=== PATIENT | female | born 1965 | race Caucasian/White ===

== ENCOUNTER 2017-08-24 19:19 | Inpatient (IN) | payer MEDICARE, MEDICAID ==
--- NOTE | 2017-08-24 19:26 | ED Physician Chart ---
ED Chief Complaint/HPI - Patient Information Date Seen:: 08/24/17 Time Seen:: 19:15 Chief Complaint:: Cough History of Present Illness:: onset x 5 days of cough, dyspnea, fever, and congestion; no report of trauma, H/ As, S/T, neck pain, C/P, Abd. Pain, A/N/V/D/c, chills, or urinary s/s Historian:: Patient, EMS Review:: Nurse's Note Reviewed, Old Chart Reviewed, EMS run form Reviewed ED Review of Systems - Review of Systems General/Constitutional: Fever, No chills, No weight loss, No weakness, No diaphoresis, No edema, No loss of appetite Skin: No skin lesions, No rash, No bruising Head: No headache, No light-headedness Eyes: No loss of vision, No pain, No diplopia ENT: No earache, Nasal drainage, No sore throat, No tinnitus Neck: No neck pain, No swelling, No thyromegaly, No stiffness, No mass noted Cardio Vascular: No chest pain, No palpitations, No PND, No orthopnea, No edema Pulmonary: SOB, Cough, No sputum, No wheezing GI: No nausea, No vomiting, No diarrhea, No pain, No melena, No hematochezia, No constipation, No hematemesis G/U: No dysuria, No frequency, No hematuria, No nacturia [employer]: No vaginal discharge, No abnormal vaginal bleed, No contraction Musculoskeletal: No bone or joint pain, No back pain, No muscle pain Endocrine: No polyuria, No polydipsia Psychiatric: No prior psych history, No depression, No anxiety, No suicidal ideation, No homicidal ideation, No auditory hallucination, No visual hallucination Hematopoietic: No bruising, No lymphadenopathy Allergic/Immuno: No urticaria, No angioedema Neurological: No syncope, No focal symptoms, No weakness, No paresthesia, No headache, No seizure, No dizziness, No confusion, No vertigo ED Past Medical History - Past Medical History Obtainable: Yes Past Medical History: HTN, DM, CAD, Dyslipidemia, ESRD, Arthritis Family History: Diabetes Melitus, HTN Social History: Non Smoker, No Alcohol, No Drug Use, Surgical History: Appendectomy, Hysterectomy Psychiatricy History: None Medication: Reviewed ED Physical Exam - Physical Examination General/Constitutional: Awake, Well-developed, well-nourished, Alert, No distress, GCS 15, Non-toxic appearing, Ambulatory Head: Atraumatic Eyes: Lids, conjuctiva normal, PERRL, EOMI Skin: Nl inspection, No rash, No skin lesions, No ecchymosis, Well hydrated, No lymphadenopathy ENMT: External ears, nose nl, TM canals nl, Nasal exam nl, Lips, teeth, gums nl , Oropharynx nl, Tonsils nl Neck: Nontender, Full ROM w/o pain, No JVD, No nuchal rigidity, No bruit, No mass, No stridor Respiratory: Nl effort/Exclusion Other Respiratory comments:: Lungs: + Rales, Rhonchi, Cardio Vascular: RRR, No murmur, gallop, rubs, NL S1 S2, Carotid/Femoral/Distal pulses equal bilaterally GI: No tenderness/rebounding/guarding, No organomegaly, No hernia, Normal BS's, Nondistended, No mass/bruits, No McBurney tenderness : No CVA tenderness Extremities: No tenderness or effusion, Full ROM, normal strength in all extremities, No edema, Normal digits & nails Neuro/Psych: Alert/oriented, DTR's symmetric, Normal sensory exam, Normal motor strength, Judgement/insight normal, Mood normal, Normal gait, No focal deficits Misc: Normal back, No paraspinal tenderness ED Labs/Radiology/EKG Results - Lab Results Comments:: = Anemia; BUN: 46; Cr: 5.5; Na+: 134 - Radiology Results Comments:: CXR: + RML Infiltrate; CM; CHF; Right Pleural Effusion - EKG Interpretations EKG Time:: 20:11 Rate & Rhythm: 98; NSR Comments:: T-Wave Inversions in I and AVL ED Septic Shock - . Is Septic Shock (SBP<90, OR Lactate>4 mmol\L) present?: No ED Reassessment (Disposition) - Reassessment Reassessment Condition:: Improved - Diagnosis Diagnosis:: Dx: Myocardial Ischemia; Anemia; Hyponatremia; ESRD; PNA; CHF; Pleural Effusion ; Sepsis - Aftercare/Follow up Instructions Aftercare/Follow-Up Instructions:: Counseled pt regarding lab results/diagnosis & need follow up, Counseled pt & family regarding lab results/diagnosis & need follow up - Patient Disposition Discharge/Transfer:: Acute Care w/in this hosp Accepting Physician:: Dr. Reyes Time Called:: 2099 Time Responded:: 21:00 Admitted to:: Telemetry Spoke to:: Dr. Reyes Admitting Medical Physician:: Dr. Reyes Condition at Disposition:: Stable, Improved
[2017-08-24 19:53] LABS: % BASOPHILS 0.4 % (0.0-2.0); % EOSINOPHILS 3.4 % (0.0-5.0); % LYMPHOCYTES 20.2 % (20.0-50.0); % MONOCYTES 7.8 % (2.0-10.0); % NEUTROPHILS 68.2 % (40.0-80.0); EOSINOPHILE ABSOLUTE 0.3 Th/cmm (0.1-0.4); HEMATOCRIT 32.1 % (41.0-60); HEMOGLOBIN 10.9 gm/dL (12-16); MEAN CELL VOLUME 94.8 fl (81-100); MEAN CORPUSCULAR HEMOGLOBIN 32.2 pg (27.0-31.0); MEAN CORPUSCULAR HGB CONC 33.9 pg (28.0-36.0); MEAN PLATELET VOLUME 7.6 fl; MONOCYTE ABSOLUTE 0.8 Th/cmm (0.3-1.0); NEUTROPHILE ABSOLUTE 6.6 Th/cmm (1.8-8.0); PLATELET COUNT 226 Th/cmm (150-400); RED BLOOD COUNT 3.38 Mil/cmm (3.80-5.10); WHITE BLOOD COUNT 9.7 Th/cmm (4.8-10.8)
[2017-08-24 20:12] LABS: ALB/GLOB RATIO 0.7 (1.0-1.8); ANION GAP 12.6 (7.0-16.0); BILIRUBIN,TOTAL 0.2 mg/dL (0.3-1.0); CALCIUM SERUM 8.9 mg/dL (8.6-10.3); CARBON DIOXIDE 30.6 mEq/L (21.0-31.0); GFR AFRICAN-AMERICAN 10.4 ml/min (>90); GFR NON AFRICAN-AMERICAN 8.6 ml/min; POTASSIUM SERUM 4.2 mEq/L (3.5-5.1); TOTAL PROTEIN,SERUM 7.1 gm/dL (6.0-8.3)
[2017-08-24 20:13] LABS: TROP I 0.04 ng/mL (0.01-0.05)
[2017-08-24 20:14] LABS: INR 1.01 (0.5-1.4); PROTHROMBIN TIME (TEST) 10.5 SECONDS (9.5-11.5)
[2017-08-24 20:15] LABS: CREATININE - SERUM 5.5 mg/dL (0.6-1.2)
[2017-08-24] MEDS ORDERED: cefTRIAXone 1 GM in Sodium Chloride 0.9% 50 ML IV ONE (20:36)
[2017-08-24] MEDS ORDERED: Azithromycin 500 MG in Sodium Chloride 0.9% 250 ML IV ONE (20:41)
[2017-08-24] MEDS ORDERED: Morphine Sulfate 2 mg/mL 1mL Syr IV STA (22:27)
[2017-08-24] MEDS ORDERED: Morphine Sulfate 2 mg/mL 1mL Syr ONE (22:29)
[2017-08-24] MEDS ORDERED: APAP/Codeine 300 mg/30 mg Tab PO PRN (23:21)
[2017-08-24] MEDS ORDERED: Guaifenesin DM 10 ML UDC PO PRN (23:32)
[2017-08-25] MEDS ORDERED: GLUCAGON HCl 1 MG KIT IM PRN (00:15)
--- NOTE | 2017-08-25 00:44 | History & Physical ---
ADMIT DATE: 08/24/2017 CHIEF COMPLAINT: Shortness of breath and cough. HISTORY OF PRESENT ILLNESS: The patient is a 52-year-old female admitted from the Emergency Room to telemetry floor from [facility] due to short of breath and cough. According to the ER physician, the patient had a chest x-ray evidence of pneumonia; however, no official report is available in the computer right now. The patient does complain short of breath and cough. RT protocol ordered and empiric antibiotics started. I have also ordered sputum culture and blood culture. Antibiotic will be adjusted accordingly. Lab catalan, the patient's sodium 124, BUN is 46, creatinine 5.5, troponin 0.04. Her white count is normal, however. PAST MEDICAL HISTORY: End-stage renal disease, on hemodialysis; diabetes; hypertension; chronic pain syndrome; difficulty walking; COPD; coronary artery disease, status post NC; anxiety; depression. PAST SURGICAL HISTORY: Dialysis access placement. MEDICATIONS: See medication reconciled list. ALLERGIES: No known drug allergy. FAMILY HISTORY: Noncontributory. SOCIAL HISTORY: The patient is . Smoked before, quit years ago. No history of alcohol or IV drug use. REVIEW OF SYSTEMS: As per HPI. PHYSICAL EXAMINATION: GENERAL: Well-developed, thin female, in no acute distress. SKIN: Warm and dry. VITAL SIGNS: Basically stable. HEENT: Normocephalic, atraumatic. Pupils equal, round, and react to light and accommodation. CHEST: Symmetrical. LUNGS: Few wheezing, the patient with rhonchi in the lung base. CARDIAC: Normal sinus rhythm. S1, S2. ABDOMEN: Benign, soft, and nontender. EXTREMITIES: No clubbing, cyanosis or edema. NEUROLOGIC: Unremarkable. IMPRESSION AND PLAN: 1. Shortness of breath, cough: Probably due to pneumonia and empiric antibiotics started, which will be adjusted accordingly. RT protocol was ordered. 2. End-stage renal disease, on hemodialysis. Dialysis will be done tomorrow and Nephrology consultation requested. 3. Hyperkalemia: Kayexalate 30 g by mouth was given. 4. Cough due to pneumonia. I will provide the patient with Robitussin as needed. 5. Chronic pain syndrome: Multifactorial. We will adjust pain medication accordingly. 6. Anxiety. 7. Deep venous thrombosis prophylaxis. JOB# [id number]
[2017-08-25] MEDS ORDERED: Piperacillin Sodium/Tazobact 2.25 gm Vial IV ONE ×2 (01:18→06:43)
[2017-08-25] MEDS: Morphine Sulfate 2 mg/mL 1mL Syr IV PRN (06:24)
[2017-08-25 06:43] LABS: ANION GAP 13.2 (7.0-16.0); CALCIUM SERUM 8.5 mg/dL (8.6-10.3); CARBON DIOXIDE 29.2 mEq/L (21.0-31.0); GFR AFRICAN-AMERICAN 9.8 ml/min (>90); GFR NON AFRICAN-AMERICAN 8.1 ml/min; POTASSIUM SERUM 4.4 mEq/L (3.5-5.1)
[2017-08-25 06:52] LABS: CREATININE - SERUM 5.8 mg/dL (0.6-1.2)
--- NOTE | 2017-08-25 07:52 | Diagnostic Imaging Report ---
CHEST X-RAY: AP view INDICATION: Cough COMPARISON: None FINDINGS: There is elevation of the right hemidiaphragm. Increased interstitial lung markings are noted. There may be small effusions. Cardiomegaly is noted. Increased bibasilar markings are noted. The osseous structures are intact. IMPRESSION: Increased interstitial lung markings. A marginal degree of congestion cannot be excluded. Bibasal atelectasis versus less likely infiltrates. Probable small bilateral effusions. Cardiomegaly.
[2017-08-25] MEDS ORDERED: [UNRECOGNIZED DRUG - REMARK] PO SCH (09:00)
[2017-08-25] MEDS: Ferrous Sulfate 325 MG TAB PO SCH ×3 (09:28→20:21)
[2017-08-25] MEDS: Pantoprazole 40 mg EC Tab PO SCH (09:28)
[2017-08-25 12:06] LABS: URINE MICROSCOPIC INDICATED? YES; URINE SOURCE MIDSTREAM
[2017-08-25 12:10] LABS: URINE BILIRUBIN NEGATIVE (NEGATIVE); URINE BLOOD TRACE (NEGATIVE); URINE GLUCOSE (UA) 500 mg/dL (NEGATIVE); URINE KETONE NEGATIVE (NEGATIVE); URINE LEUKOCYTE ESTERASE NEGATIVE (NEGATIVE); URINE NITRATE NEGATIVE (NEGATIVE); URINE PROTEIN >=300 mg/dL (NEGATIVE); URINE UROBILINOGEN 0.2 E.U./dL (0.2 - 1.0)
[2017-08-25 12:19] LABS: URINE COLOR YELLOW
[2017-08-25 12:20] LABS: URINE CLARITY HAZY (CLEAR)
[2017-08-25 12:29] LABS: URINE RBC 0-2 /hpf (0-5)
[2017-08-25 12:30] LABS: URINE EPITHELIAL CELLS FEW /lpf (FEW)
[2017-08-25 12:31] LABS: URINE BACTERIA 1+ /hpf (NONE SEEN)
--- NOTE | 2017-08-25 13:14 | Diagnostic Imaging Report ---
Bilateral lower extremity Doppler venous ultrasound exam HISTORY: Pain/swelling Sonographic sector images were obtained through the deep venous systems of both legs. Associated Doppler data was obtained. The exam demonstrates patency of the common femoral, superficial femoral, popliteal, and posterior tibial veins bilaterally. Specifically, no thrombus is seen. There are normal compressibility and augmentation responses. IMPRESSION: Negative exam for deep vein thrombophlebitis.
[2017-08-25] MEDS: Morphine Sulfate 2 mg/mL 1mL Syr IVP PRN (13:47)
--- NOTE | 2017-08-25 23:01 | Internal Medicine Prog Note ---
Internal Medicine Subjective - Subjective Service Date: 08/25/17 (pt was seen earlier today, c/o severe pain.) Patient seen and examined:: with staff Patient is:: awake, verbal, interactive, in bed Patient Complaints of:: congestion, sore throat, cough, LBP, headache, SOB Per staff patient has:: no adverse event Internal Medicine Objective - Results Result Diagrams: 08/24/17 19:42 08/25/17 05:20 Recent Labs: Laboratory Last Values WBC 9.7 Th/cmm (4.8-10.8) 08/24/17 19:42 RBC 3.38 Mil/cmm (3.80-5.10) L 08/24/17 19:42 Hgb 10.9 gm/dL (12-16) L 08/24/17 19:42 Hct 32.1 % (41.0-60) L 08/24/17 19:42 MCV 94.8 fl (81-100) 08/24/17 19:42 MCH 32.2 pg (27.0-31.0) H 08/24/17 19:42 MCHC Differential 33.9 pg (28.0-36.0) 08/24/17 19:42 RDW 15.0 % (11.5-20.0) 08/24/17 19:42 Plt Count 226 Th/cmm (150-400) 08/24/17 19:42 MPV 7.6 fl 08/24/17 19:42 Neutrophils % 68.2 % (40.0-80.0) 08/24/17 19:42 Lymphocytes % 20.2 % (20.0-50.0) 08/24/17 19:42 Monocytes % 7.8 % (2.0-10.0) 08/24/17 19:42 Eosinophils % 3.4 % (0.0-5.0) 08/24/17 19:42 Basophils % 0.4 % (0.0-2.0) 08/24/17 19:42 PT 10.5 SECONDS (9.5-11.5) 08/24/17 19:42 INR 1.01 (0.5-1.4) 08/24/17 19:42 PTT (Actin FS) 26.1 SECONDS (26.0-38.0) 08/24/17 19:42 Sodium 136 mEq/L (136-145) 08/25/17 05:20 Potassium 4.4 mEq/L (3.5-5.1) 08/25/17 05:20 Chloride 98 mEq/L (98-107) 08/25/17 05:20 Carbon Dioxide 29.2 mEq/L (21.0-31.0) 08/25/17 05:20 Anion Gap 13.2 (7.0-16.0) 08/25/17 05:20 BUN 50 mg/dL (7-25) H 08/25/17 05:20 Creatinine 5.8 mg/dL (0.6-1.2) H* 08/25/17 05:20 Est GFR ( Amer) 9.8 ml/min (>90) 08/25/17 05:20 Est GFR (Non-Af Amer) 8.1 ml/min 08/25/17 05:20 BUN/Creatinine Ratio 8.6 08/25/17 05:20 Glucose 109 mg/dL (70-105) H 08/25/17 05:20 POC Glucose 148 MG/DL (70 - 105) H 08/25/17 11:43 Whole Bld Lactic Acid 1.23 mmol/L (0.60-1.99) 08/24/17 19:42 Calcium 8.5 mg/dL (8.6-10.3) L 08/25/17 05:20 Total Bilirubin 0.2 mg/dL (0.3-1.0) L 08/24/17 19:42 AST 18 U/L (13-39) 08/24/17 19:42 ALT 15 U/L (7-52) 08/24/17 19:42 Alkaline Phosphatase 113 U/L (34-104) H 08/24/17 19:42 Creatine Kinase 77 U/L (30-223) 08/24/17 19:42 Troponin I 0.04 ng/mL (0.01-0.05) 08/24/17 19:42 B-Natriuretic Peptide 2410.0 pg/mL (5.0-100.0) H 08/25/17 05:20 Total Protein 7.1 gm/dL (6.0-8.3) 08/24/17 19:42 Albumin 3.0 gm/dL (3.7-5.3) L 08/24/17 19:42 Globulin 4.1 gm/dL 08/24/17 19:42 Albumin/Globulin Ratio 0.7 (1.0-1.8) L 08/24/17 19:42 Serum , Qual NEGATIVE (NEGATIVE) 08/24/17 19:42 Urine Source MIDSTREAM 08/25/17 12:04 Urine Color YELLOW 08/25/17 12:04 Urine Clarity HAZY (CLEAR) 08/25/17 12:04 Urine pH 8.0 (4.6 - 8.0) 08/25/17 12:04 Ur Specific [place] 1.020 (1.005-1.030) 08/25/17 12:04 Urine Protein >=300 mg/dL (NEGATIVE) 08/25/17 12:04 Urine Glucose (UA) 500 mg/dL (NEGATIVE) H 08/25/17 12:04 Urine Ketones NEGATIVE mg/dL (NEGATIVE) 08/25/17 12:04 Urine Blood TRACE (NEGATIVE) 08/25/17 12:04 Urine Nitrate NEGATIVE (NEGATIVE) 08/25/17 12:04 Urine Bilirubin NEGATIVE (NEGATIVE) 08/25/17 12:04 Urine Urobilinogen 0.2 E.U./dL (0.2 - 1.0) 08/25/17 12:04 Ur Leukocyte Esterase NEGATIVE (NEGATIVE) 08/25/17 12:04 Urine RBC 0-2 /hpf (0-5) 08/25/17 12:04 Urine WBC 6-10 /hpf (0-5) H 08/25/17 12:04 Ur Epithelial Cells FEW /lpf (FEW) 08/25/17 12:04 Urine Bacteria 1+ /hpf (NONE SEEN) H 08/25/17 12:04 - Physical Exam Vitals and I&O: Vital Signs Temp 97.7 F 08/25/17 20:00 Pulse 90 08/25/17 20:22 Resp 20 08/25/17 20:22 BP 115/60 08/25/17 20:00 Pulse Ox 96 08/25/17 20:22 Intake & Output 08/25/17 08/25/17 08/26/17 06:59 18:59 06:59 Intake Total 650 520 Balance 650 520 Weight (lbs) 97.84 kg 101.605 kg Intake: Intake, IV Amount 650 100 Azithromycin 500 mg In 250 Sodium Chloride 0.9% 250 ml @ 250 mls/hr IV X1 ONE Rx#:[id number] Piperacillin Sodium/ 50 100 Tazobact 2.25 gm In Sodium Chloride 0.9% 50 ml @ 100 mls/hr IV Q8HR [facility] Rx#:[id number] cefTRIAXone 1 gm In 50 Sodium Chloride 0.9% 50 ml @ 100 mls/hr IV X1 ONE Rx#:[id number] Oral 420 Other: # Voids 3 # Bowel Movements 0 Weight Source Bedscale Bedscale Active Medications: Current Medications Acetaminophen (Tylenol) 650 mg PO Q6HR PRN PRN Reason: Fever >101 or Mild Pain Stop: 10/23/17 23:20 Acetaminophen/Codeine Phosphate (Tylenol W/Codeine #3) 1 tab PO Q6H PRN PRN Reason: Pain (Moderate) Stop: 10/23/17 23:20 Amlodipine Besylate (Norvasc) 5 mg PO DAILY [facility] Stop: 10/24/17 08:59 Last Admin: 08/25/17 09:32 Dose: Not Given Bisacodyl (Dulcolax 10 Mg Supp) 10 mg RC DAILY PRN PRN Reason: Constipation Stop: 10/23/17 23:20 Docusate Sodium (Colace) 100 mg PO DAILY [facility] Stop: 10/24/17 08:59 Last Admin: 08/25/17 09:28 Dose: Not Given Ferrous Sulfate (Iron) 325 mg PO TID [facility] Stop: 10/24/17 08:59 Last Admin: 08/25/17 20:21 Dose: 325 mg Furosemide (Lasix) 40 mg PO DAILY [facility] Stop: 10/24/17 08:59 Last Admin: 08/25/17 09:32 Dose: Not Given Glipizide (Glucotrol) 5 mg PO AC [facility] Stop: 10/24/17 07:29 Last Admin: 08/25/17 18:19 Dose: Not Given Glucagon (Glucagen) 1 mg IM UD PRN PRN Reason: HYPOGLYCEMIA Stop: 10/24/17 00:14 Guaifenesin/Dextromethorphan (Robitussin Dm) 10 ml PO Q4H PRN PRN Reason: Cough Stop: 10/23/17 23:31 Heparin Sodium (Porcine) (Heparin Sodium) 0 units HD UD [facility] Stop: 08/27/17 00:00 Piperacillin Sod/Tazobactam (Sod 2.25 gm/ Sodium Chloride) 50 mls @ 100 mls/hr IV Q8HR [facility] Stop: 10/24/17 00:00 Last Admin: 08/25/17 20:21 Dose: 100 mls/hr Albumin Human (Albuminar 25%) 25 gm in 100 mls @ 50 mls/hr IV X1 ONE Stop: 08/26/17 01:59 Morphine Sulfate (Morphine) 2 mg IV HS PRN PRN Reason: Pain (Severe) Stop: 10/23/17 23:20 Last Admin: 08/25/17 06:24 Dose: 2 mg Morphine Sulfate (Morphine) 3 mg IVP Q4HR PRN PRN Reason: Pain (Severe) Stop: 10/24/17 13:17 Last Admin: 08/25/17 13:47 Dose: 3 mg Ondansetron HCl (Zofran) 4 mg IV Q4H PRN PRN Reason: Nausea / Vomiting Stop: 10/24/17 18:16 Last Admin: 08/25/17 20:21 Dose: 4 mg Pantoprazole Sodium (Protonix) 40 mg PO QDAC [facility] Stop: 10/24/17 07:29 Last Admin: 08/25/17 09:28 Dose: 40 mg Senna (Senna) 8.6 mg PO DAILY [facility] Stop: 10/24/17 08:59 Last Admin: 08/25/17 09:28 Dose: Not Given Sevelamer Carbonate (Renvela) 2,400 mg PO TIDWM [facility] Stop: 10/24/17 07:59 Last Admin: 08/25/17 18:42 Dose: Not Given General: weak, lethargic, congested, NAD HEENT: NC/AT, PERRLA, EOMI, anicteric sclerae Neck: Supple, No JVD, No thyromegaly, +2 carotid pulse wo bruit, No LAD Lungs: wheezing, ronchi Cardiovascular: RRR, Normal S1, Normal S2 Abdomen: soft, non-tender Extremities: edema, pedal pulses, ecchymosis Neurological: no change, alert, muscle weakness Internal Medicine Assmt/Plan - Assessment Assessment: SOB: slightly better today; continue RT protocol. Early PNA: IVPB ABX, adjusting accordingly. Cough: Robitussin PRN. Chest congestion: multifactorial. Pleural effusion: due to fluid overload? Intractable pain/chronic pain syndrome. ESRD: on HD. DM: SSI low dose. Elevated BNP: partly due to ESRD on HD. Difficult walking: fall precaution. DVT Prophylaxis.
[2017-08-26] MEDS ORDERED: Albumin 25% 25gm/100mL 25 GM/100 ML BTL IV ONE
[2017-08-26] MEDS: Morphine Sulfate 2 mg/mL 1mL Syr IV PRN (01:53)
--- NOTE | 2017-08-26 02:29 | Consultation ---
DATE OF CONSULTATION: 08/25/2017 ATTENDING PHYSICIAN: Elvia Pride M.D. REASON FOR CONSULTATION: Electrolyte imbalance and fluid management. HISTORY OF PRESENT ILLNESS: This is a 52-year-old female with past medical history of end-stage renal disease on hemodialysis, who was brought in because of cough and congestion. Five days prior to admission, the patient developed cough. Two days prior to admission, she reported to the dialysis unit. However, she continued to have worsening cough. She could not complete sentences due to her cough. A few hours prior to admission, she also had accompanying congestion. She became nauseous and lost her appetite. Thus, her PMD's sent her to the Emergency Room. White count of 9.7. However, chest x-ray showed right infiltrate/effusion with cardiomegaly. She did not have any fever/chills, diarrhea, abdominal pain, headaches, sinusitis nor sore throat. PAST MEDICAL HISTORY: 1. End-stage renal disease on hemodialysis. 2. Type 2 diabetes mellitus. 3. Essential hypertension. 4. Chronic pain syndrome. 5. COPD. 6. Coronary artery disease status post NSTEMI. 7. History of depression. 8. Cervical CA. 9. Anemia of chronic kidney disease. 10. DJD. PAST SURGICAL HISTORY: Status post creation of left AV fistula. CURRENT MEDICATIONS: She is currently on acetaminophen, amlodipine, docusate sodium, ferrous sulfate, furosemide, glipizide, Robitussin, morphine sulfate, pantoprazole, sennosides, sevelamer, ceftriaxone and azithromycin. ALLERGIES: No known drug allergies. SOCIAL HISTORY: Denied any history of smoking. She used to drink alcoholic beverages, but quit 3 years ago. 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 FAMILY HISTORY: This is significant for her mother having diabetes. REVIEW OF SYSTEMS: GENERAL: She did complain of progressive weakness due to her cough. Appetite had also deteriorated. She had no fever or chills. HEENT: No mention of headaches, no dizziness. CARDIORESPIRATORY: She has a history of coronary artery disease. She also has hypertension and COPD. However, at the present time, she does not have any chest pain, palpitations, diaphoresis, no shortness of breath. GASTROINTESTINAL: She has nausea, but no vomiting, no diarrhea, no abdominal pain and cramping. MUSCULOSKELETAL: Multiple joint arthralgias. GENITOURINARY: History of kidney failure, now on hemodialysis. HEMATOLOGIC: She has anemia of chronic kidney disease. She also has cervical CA. NEUROPSYCH: No syncopal episode nor seizure activity. PHYSICAL EXAMINATION: GENERAL: The patient is awake, verbal, still has cough and congestion. VITAL SIGNS: Blood pressure 121/63, pulse 83, temperature 97.4 degrees. SKIN: Good turgor, warm, no rash, no jaundice appreciated. HEENT: Head normocephalic, atraumatic. Eyes: Extraocular muscles intact. Pupils equal, round, reactive to light and accommodates. Anicteric sclerae. Pale conjunctivae. Nose, midline nasal septum. Mouth: Dry mucosa, adequate dentition. NECK: Supple, no adenopathy, no thyromegaly, no bruits. Trachea palpated in the midline. CHEST AND CARDIOVASCULAR: S1, S2. No rub, murmur nor gallop appreciated. Point of maximal impulse fifth intercostal space, left midclavicular line. No abdominal or femoral bruits appreciated. LUNGS: Equal expansion. Minimal use of accessory muscles. No supraclavicular retractions. Scattered coarse rhonchi with some congestion, but no wheezes, no rales appreciated. BREASTS: Pendulous symmetrical without any discharge. ABDOMEN: Obese, soft, positive for bowel sounds. No tenderness, no bruits either diastolic or systolic. RECTAL: The patient refused. GENITOURINARY: Normal appearing female genitalia. MUSCULOSKELETAL: No effusions present in her joints with limited range of motion. EXTREMITIES: No evidence of any edema, cyanosis or clubbing with palpable femoral, popliteal and dorsalis pedis pulses. NEUROLOGIC: The patient is alert, verbal, motor is 5/5. Cranial nerves 2-12 intact. Sensory intact. LABORATORY DATA: Did reveal white count 9.7, hemoglobin 10.9, hematocrit 32.1, platelets 226, polys 68.2%. Sodium 136, potassium 4.2, chloride 98, CO2 of 29, BUN 50, creatinine 5.8, glucose 119, calcium 8.5. BNP is 2410, albumin is 3. IMPRESSION: 1. End-stage renal disease on hemodialysis. 2. Productive cough and congestion, possibly right lower lobe healthcare-acquired pneumonia with bilateral effusions. 3. Elevated BNP secondary to kidney failure. 4. Type 2 diabetes mellitus with chronic kidney disease. 5. Essential hypertension with chronic kidney disease. 6. Chronic pain syndrome with chronic kidney disease. 7. Chronic obstructive pulmonary disease. 8. Coronary artery disease, status post [id number] myocardial infarction. 9. Depression. 10. Cervical cancer. 11. Anemia of chronic kidney disease. 12. Degenerative joint disease. PLAN: 1. Hemodialysis as scheduled. 2. Continue Zithromax as well as Rocephin for now. 3. Follow up cultures. 4. Serial chest x-ray. Thank you, Dr. Pride, for this consult. I will follow the patient closely with you. JOB# [id number]
[2017-08-26 06:25] LABS: % BASOPHILS 0.5 % (0.0-2.0); % EOSINOPHILS 3.9 % (0.0-5.0); % LYMPHOCYTES 13.7 % (20.0-50.0); % MONOCYTES 8.2 % (2.0-10.0); % NEUTROPHILS 73.7 % (40.0-80.0); EOSINOPHILE ABSOLUTE 0.3 Th/cmm (0.1-0.4); HEMATOCRIT 31.4 % (41.0-60); HEMOGLOBIN 10.6 gm/dL (12-16); LYMPHOCYTE ABSOLUTE 1.1 Th/cmm (1.5-3.0); MEAN CELL VOLUME 94.3 fl (81-100); MEAN CORPUSCULAR HEMOGLOBIN 31.8 pg (27.0-31.0); MEAN CORPUSCULAR HGB CONC 33.8 pg (28.0-36.0); MEAN PLATELET VOLUME 7.5 fl; MONOCYTE ABSOLUTE 0.7 Th/cmm (0.3-1.0); NEUTROPHILE ABSOLUTE 5.9 Th/cmm (1.8-8.0); PLATELET COUNT 223 Th/cmm (150-400); RED BLOOD COUNT 3.33 Mil/cmm (3.80-5.10); RED CELL DISTRIBUTION WIDTH 15.1 % (11.5-20.0)
[2017-08-26 06:37] LABS: ANION GAP 10.9 (7.0-16.0); CALCIUM SERUM 8.4 mg/dL (8.6-10.3); GFR AFRICAN-AMERICAN 13.1 ml/min (>90); GFR NON AFRICAN-AMERICAN 10.8 ml/min; PHOSPHOROUS 3.8 mg/dL (2.5-5.0); POTASSIUM SERUM 3.9 mEq/L (3.5-5.1)
[2017-08-26 06:55] LABS: CREATININE - SERUM 4.5 mg/dL (0.6-1.2)
[2017-08-26] MEDS: Heparin Sod 1,000 Units/mL 10ml HD SCH ×2 (07:40→08:54)
[2017-08-26] MEDS: Ferrous Sulfate 325 MG TAB PO SCH ×3 (08:51→20:25)
--- NOTE | 2017-08-26 08:51 | Diagnostic Imaging Report ---
Exam: Portable chest x-ray. HISTORY: Infiltrate. Findings: Portable examination of the chest at 0755 hours reviewed compared to prior study of the sixth 8 demonstrates right basilar infiltrate and superimposed effusion. There is evidence for left basilar atelectasis. The heart is enlarged bony thorax is intact IMPRESSION: Bilateral infiltrates, unchanged compared to prior study 08/24, superimposed right pleural effusion. Follow-up examination recommended
[2017-08-26] MEDS: Pantoprazole 40 mg EC Tab PO SCH (08:54)
[2017-08-26] MEDS: Morphine Sulfate 2 mg/mL 1mL Syr IVP PRN ×2 (12:11→18:54)
[2017-08-26] MEDS ORDERED: Albuterol/Ipratropium Neb 3 ML AERS HHN PRN (13:42)
--- NOTE | 2017-08-26 14:46 | General Progress Note ---
Subjective - Review of Systems Service Date: 08/26/17 Subjective: still w/ cough, congestion Objective - Results Result Diagrams: 08/26/17 05:50 08/26/17 05:50 Recent Labs: Laboratory Last Values WBC 8.0 Th/cmm (4.8-10.8) 08/26/17 05:50 RBC 3.33 Mil/cmm (3.80-5.10) L 08/26/17 05:50 Hgb 10.6 gm/dL (12-16) L 08/26/17 05:50 Hct 31.4 % (41.0-60) L 08/26/17 05:50 MCV 94.3 fl (81-100) 08/26/17 05:50 MCH 31.8 pg (27.0-31.0) H 08/26/17 05:50 MCHC Differential 33.8 pg (28.0-36.0) 08/26/17 05:50 RDW 15.1 % (11.5-20.0) 08/26/17 05:50 Plt Count 223 Th/cmm (150-400) 08/26/17 05:50 MPV 7.5 fl 08/26/17 05:50 Neutrophils % 73.7 % (40.0-80.0) 08/26/17 05:50 Lymphocytes % 13.7 % (20.0-50.0) L 08/26/17 05:50 Monocytes % 8.2 % (2.0-10.0) 08/26/17 05:50 Eosinophils % 3.9 % (0.0-5.0) 08/26/17 05:50 Basophils % 0.5 % (0.0-2.0) 08/26/17 05:50 PT 10.5 SECONDS (9.5-11.5) 08/24/17 19:42 INR 1.01 (0.5-1.4) 08/24/17 19:42 PTT (Actin FS) 26.1 SECONDS (26.0-38.0) 08/24/17 19:42 Sodium 135 mEq/L (136-145) L 08/26/17 05:50 Potassium 3.9 mEq/L (3.5-5.1) 08/26/17 05:50 Chloride 99 mEq/L (98-107) 08/26/17 05:50 Carbon Dioxide 29.0 mEq/L (21.0-31.0) 08/26/17 05:50 Anion Gap 10.9 (7.0-16.0) 08/26/17 05:50 BUN 30 mg/dL (7-25) H 08/26/17 05:50 Creatinine 4.5 mg/dL (0.6-1.2) H* 08/26/17 05:50 Est GFR ( Amer) 13.1 ml/min (>90) 08/26/17 05:50 Est GFR (Non-Af Amer) 10.8 ml/min 08/26/17 05:50 BUN/Creatinine Ratio 6.7 08/26/17 05:50 Glucose 90 mg/dL (70-105) 08/26/17 05:50 POC Glucose 148 MG/DL (70 - 105) H 08/25/17 11:43 Whole Bld Lactic Acid 1.23 mmol/L (0.60-1.99) 08/24/17 19:42 Calcium 8.4 mg/dL (8.6-10.3) L 08/26/17 05:50 Phosphorus 3.8 mg/dL (2.5-5.0) 08/26/17 05:50 Total Bilirubin 0.2 mg/dL (0.3-1.0) L 08/24/17 19:42 AST 18 U/L (13-39) 08/24/17 19:42 ALT 15 U/L (7-52) 08/24/17 19:42 Alkaline Phosphatase 113 U/L (34-104) H 08/24/17 19:42 Creatine Kinase 77 U/L (30-223) 08/24/17 19:42 Troponin I 0.04 ng/mL (0.01-0.05) 08/24/17 19:42 B-Natriuretic Peptide 2410.0 pg/mL (5.0-100.0) H 08/25/17 05:20 Total Protein 7.1 gm/dL (6.0-8.3) 08/24/17 19:42 Albumin 3.0 gm/dL (3.7-5.3) L 08/24/17 19:42 Globulin 4.1 gm/dL 08/24/17 19:42 Albumin/Globulin Ratio 0.7 (1.0-1.8) L 08/24/17 19:42 Serum , Qual NEGATIVE (NEGATIVE) 08/24/17 19:42 Urine Source MIDSTREAM 08/25/17 12:04 Urine Color YELLOW 08/25/17 12:04 Urine Clarity HAZY (CLEAR) 08/25/17 12:04 Urine pH 8.0 (4.6 - 8.0) 08/25/17 12:04 Ur Specific [place] 1.020 (1.005-1.030) 08/25/17 12:04 Urine Protein >=300 mg/dL (NEGATIVE) 08/25/17 12:04 Urine Glucose (UA) 500 mg/dL (NEGATIVE) H 08/25/17 12:04 Urine Ketones NEGATIVE mg/dL (NEGATIVE) 08/25/17 12:04 Urine Blood TRACE (NEGATIVE) 08/25/17 12:04 Urine Nitrate NEGATIVE (NEGATIVE) 08/25/17 12:04 Urine Bilirubin NEGATIVE (NEGATIVE) 08/25/17 12:04 Urine Urobilinogen 0.2 E.U./dL (0.2 - 1.0) 08/25/17 12:04 Ur Leukocyte Esterase NEGATIVE (NEGATIVE) 08/25/17 12:04 Urine RBC 0-2 /hpf (0-5) 08/25/17 12:04 Urine WBC 6-10 /hpf (0-5) H 08/25/17 12:04 Ur Epithelial Cells FEW /lpf (FEW) 08/25/17 12:04 Urine Bacteria 1+ /hpf (NONE SEEN) H 08/25/17 12:04 - Physical Exam Vitals and I&O: Vital Signs Temp 97.6 F 08/26/17 11:55 Pulse 85 08/26/17 11:55 Resp 85 08/26/17 11:55 BP 120/62 08/26/17 11:55 Pulse Ox 95 08/26/17 11:55 Intake & Output 08/25/17 08/26/17 08/26/17 18:59 06:59 18:59 Intake Total 520 50 50 Balance 520 50 50 Weight (lbs) 101.605 kg 97.522 kg Intake: Intake, IV Amount 100 50 50 Piperacillin Sodium/ 100 50 50 Tazobact 2.25 gm In Sodium Chloride 0.9% 50 ml @ 100 mls/hr IV Q8HR [facility] Rx#:[id number] Oral 420 Other: # Voids 3 # Bowel Movements 0 Weight Source Bedscale Bedscale Active Medications: Current Medications Acetaminophen (Tylenol) 650 mg PO Q6HR PRN PRN Reason: Fever >101 or Mild Pain Stop: 10/23/17 23:20 Acetaminophen/Codeine Phosphate (Tylenol W/Codeine #3) 1 tab PO Q6H PRN PRN Reason: Pain (Moderate) Stop: 10/23/17 23:20 Albuterol/Ipratropium (Duoneb Neb) 3 ml HHN Q4HRT [facility] Stop: 10/25/17 14:59 Amlodipine Besylate (Norvasc) 5 mg PO DAILY [facility] Stop: 10/24/17 08:59 Last Admin: 08/26/17 08:51 Dose: Not Given Bisacodyl (Dulcolax 10 Mg Supp) 10 mg RC DAILY PRN PRN Reason: Constipation Stop: 10/23/17 23:20 Docusate Sodium (Colace) 100 mg PO DAILY [facility] Stop: 10/24/17 08:59 Last Admin: 08/26/17 08:51 Dose: Not Given Ferrous Sulfate (Iron) 325 mg PO TID [facility] Stop: 10/24/17 08:59 Last Admin: 08/26/17 13:59 Dose: 325 mg Furosemide (Lasix) 40 mg PO DAILY [facility] Stop: 10/24/17 08:59 Last Admin: 08/26/17 08:52 Dose: 40 mg Glipizide (Glucotrol) 5 mg PO AC [facility] Stop: 10/24/17 07:29 Last Admin: 08/26/17 13:46 Dose: Not Given Glucagon (Glucagen) 1 mg IM UD PRN PRN Reason: HYPOGLYCEMIA Stop: 10/24/17 00:14 Guaifenesin/Dextromethorphan (Robitussin Dm) 10 ml PO Q4H PRN PRN Reason: Cough Stop: 10/23/17 23:31 Heparin Sodium (Porcine) (Heparin Sodium) 0 units HD UD [facility] Stop: 08/27/17 00:00 Last Admin: 08/26/17 08:54 Dose: Not Given Piperacillin Sod/Tazobactam (Sod 2.25 gm/ Sodium Chloride) 50 mls @ 100 mls/hr IV Q8HR [facility] Stop: 10/24/17 00:00 Last Admin: 08/26/17 12:39 Dose: 100 mls/hr Morphine Sulfate (Morphine) 2 mg IV HS PRN PRN Reason: Pain (Severe) Stop: 10/23/17 23:20 Last Admin: 08/26/17 01:53 Dose: 2 mg Morphine Sulfate (Morphine) 3 mg IVP Q4HR PRN PRN Reason: Pain (Severe) Stop: 10/24/17 13:17 Last Admin: 08/26/17 12:11 Dose: 3 mg Ondansetron HCl (Zofran) 4 mg IV Q4H PRN PRN Reason: Nausea / Vomiting Stop: 10/24/17 18:16 Last Admin: 08/25/17 20:21 Dose: 4 mg Pantoprazole Sodium (Protonix) 40 mg PO QDAC [facility] Stop: 10/24/17 07:29 Last Admin: 08/26/17 08:54 Dose: 40 mg Senna (Senna) 8.6 mg PO DAILY [facility] Stop: 10/24/17 08:59 Last Admin: 08/26/17 08:50 Dose: Not Given Sevelamer Carbonate (Renvela) 2,400 mg PO TIDWM [facility] Stop: 10/24/17 07:59 Last Admin: 08/26/17 13:59 Dose: 2,400 mg General: Alert, Oriented x3, Mild distress HEENT: Atraumatic, EOMI, Mucous membr. moist/pink Neck: Supple, +2 carotid pulse wo bruit Cardiovascular: Regular rate, Normal S1, Normal S2 Lungs: Other (rhonchi, congestion) Abdomen: Bowel sounds, Soft Extremities: no Edema Neurological: Sensation intact Skin: no Rash Psych/Mental Status: Mood NL Assessment/Plan - Assessment Assessment: ESRD on HD Right LL HAP T2DM w/ CKD Ess Htn w/ CKD COPD - Plan Plan: Lab - Result Diagrams 08/26/17 05:50 08/26/17 05:50 Current Medications Acetaminophen (Tylenol) 650 mg PO Q6HR PRN PRN Reason: Fever >101 or Mild Pain Stop: 10/23/17 23:20 Acetaminophen/Codeine Phosphate (Tylenol W/Codeine #3) 1 tab PO Q6H PRN PRN Reason: Pain (Moderate) Stop: 10/23/17 23:20 Albuterol/Ipratropium (Duoneb Neb) 3 ml HHN Q4HRT [facility] Stop: 10/25/17 14:59 Amlodipine Besylate (Norvasc) 5 mg PO DAILY [facility] Stop: 10/24/17 08:59 Last Admin: 08/26/17 08:51 Dose: Not Given Bisacodyl (Dulcolax 10 Mg Supp) 10 mg RC DAILY PRN PRN Reason: Constipation Stop: 10/23/17 23:20 Docusate Sodium (Colace) 100 mg PO DAILY [facility] Stop: 10/24/17 08:59 Last Admin: 08/26/17 08:51 Dose: Not Given Ferrous Sulfate (Iron) 325 mg PO TID [facility] Stop: 10/24/17 08:59 Last Admin: 08/26/17 13:59 Dose: 325 mg Furosemide (Lasix) 40 mg PO DAILY [facility] Stop: 10/24/17 08:59 Last Admin: 08/26/17 08:52 Dose: 40 mg Glipizide (Glucotrol) 5 mg PO AC [facility] Stop: 10/24/17 07:29 Last Admin: 08/26/17 13:46 Dose: Not Given Glucagon (Glucagen) 1 mg IM UD PRN PRN Reason: HYPOGLYCEMIA Stop: 10/24/17 00:14 Guaifenesin/Dextromethorphan (Robitussin Dm) 10 ml PO Q4H PRN PRN Reason: Cough Stop: 10/23/17 23:31 Heparin Sodium (Porcine) (Heparin Sodium) 0 units HD UD [facility] Stop: 08/27/17 00:00 Last Admin: 08/26/17 08:54 Dose: Not Given Piperacillin Sod/Tazobactam (Sod 2.25 gm/ Sodium Chloride) 50 mls @ 100 mls/hr IV Q8HR [facility] Stop: 10/24/17 00:00 Last Admin: 08/26/17 12:39 Dose: 100 mls/hr Morphine Sulfate (Morphine) 2 mg IV HS PRN PRN Reason: Pain (Severe) Stop: 10/23/17 23:20 Last Admin: 08/26/17 01:53 Dose: 2 mg Morphine Sulfate (Morphine) 3 mg IVP Q4HR PRN PRN Reason: Pain (Severe) Stop: 10/24/17 13:17 Last Admin: 08/26/17 12:11 Dose: 3 mg Ondansetron HCl (Zofran) 4 mg IV Q4H PRN PRN Reason: Nausea / Vomiting Stop: 10/24/17 18:16 Last Admin: 08/25/17 20:21 Dose: 4 mg Pantoprazole Sodium (Protonix) 40 mg PO QDAC [facility] Stop: 10/24/17 07:29 Last Admin: 08/26/17 08:54 Dose: 40 mg Senna (Senna) 8.6 mg PO DAILY [facility] Stop: 10/24/17 08:59 Last Admin: 08/26/17 08:50 Dose: Not Given Sevelamer Carbonate (Renvela) 2,400 mg PO TIDWM [facility] Stop: 10/24/17 07:59 Last Admin: 08/26/17 13:59 Dose: 2,400 mg Lab - Result Diagrams 08/26/17 05:50 08/26/17 05:50 pt. was dialyzed yesterday & tolerated schedule again for HD in am continue ABx & breathing Tx
[2017-08-26] MEDS: Albuterol/Ipratropium Neb 3 ML AERS HHN SCH ×3 (16:01→23:44)
--- NOTE | 2017-08-26 23:35 | Internal Medicine Prog Note ---
Internal Medicine Subjective - Subjective Service Date: 08/26/17 Patient is:: awake, verbal, interactive, in bed Patient Complaints of:: congestion, sore throat, cough, LBP, headache, SOB Per staff patient has:: no adverse event Internal Medicine Objective - Results Result Diagrams: 08/26/17 05:50 08/26/17 05:50 Recent Labs: Laboratory Last Values WBC 8.0 Th/cmm (4.8-10.8) 08/26/17 05:50 RBC 3.33 Mil/cmm (3.80-5.10) L 08/26/17 05:50 Hgb 10.6 gm/dL (12-16) L 08/26/17 05:50 Hct 31.4 % (41.0-60) L 08/26/17 05:50 MCV 94.3 fl (81-100) 08/26/17 05:50 MCH 31.8 pg (27.0-31.0) H 08/26/17 05:50 MCHC Differential 33.8 pg (28.0-36.0) 08/26/17 05:50 RDW 15.1 % (11.5-20.0) 08/26/17 05:50 Plt Count 223 Th/cmm (150-400) 08/26/17 05:50 MPV 7.5 fl 08/26/17 05:50 Neutrophils % 73.7 % (40.0-80.0) 08/26/17 05:50 Lymphocytes % 13.7 % (20.0-50.0) L 08/26/17 05:50 Monocytes % 8.2 % (2.0-10.0) 08/26/17 05:50 Eosinophils % 3.9 % (0.0-5.0) 08/26/17 05:50 Basophils % 0.5 % (0.0-2.0) 08/26/17 05:50 PT 10.5 SECONDS (9.5-11.5) 08/24/17 19:42 INR 1.01 (0.5-1.4) 08/24/17 19:42 PTT (Actin FS) 26.1 SECONDS (26.0-38.0) 08/24/17 19:42 Sodium 135 mEq/L (136-145) L 08/26/17 05:50 Potassium 3.9 mEq/L (3.5-5.1) 08/26/17 05:50 Chloride 99 mEq/L (98-107) 08/26/17 05:50 Carbon Dioxide 29.0 mEq/L (21.0-31.0) 08/26/17 05:50 Anion Gap 10.9 (7.0-16.0) 08/26/17 05:50 BUN 30 mg/dL (7-25) H 08/26/17 05:50 Creatinine 4.5 mg/dL (0.6-1.2) H* 08/26/17 05:50 Est GFR ( Amer) 13.1 ml/min (>90) 08/26/17 05:50 Est GFR (Non-Af Amer) 10.8 ml/min 08/26/17 05:50 BUN/Creatinine Ratio 6.7 08/26/17 05:50 Glucose 90 mg/dL (70-105) 08/26/17 05:50 POC Glucose 148 MG/DL (70 - 105) H 08/25/17 11:43 Whole Bld Lactic Acid 1.23 mmol/L (0.60-1.99) 08/24/17 19:42 Calcium 8.4 mg/dL (8.6-10.3) L 08/26/17 05:50 Phosphorus 3.8 mg/dL (2.5-5.0) 08/26/17 05:50 Total Bilirubin 0.2 mg/dL (0.3-1.0) L 08/24/17 19:42 AST 18 U/L (13-39) 08/24/17 19:42 ALT 15 U/L (7-52) 08/24/17 19:42 Alkaline Phosphatase 113 U/L (34-104) H 08/24/17 19:42 Creatine Kinase 77 U/L (30-223) 08/24/17 19:42 Troponin I 0.04 ng/mL (0.01-0.05) 08/24/17 19:42 B-Natriuretic Peptide 2410.0 pg/mL (5.0-100.0) H 08/25/17 05:20 Total Protein 7.1 gm/dL (6.0-8.3) 08/24/17 19:42 Albumin 3.0 gm/dL (3.7-5.3) L 08/24/17 19:42 Globulin 4.1 gm/dL 08/24/17 19:42 Albumin/Globulin Ratio 0.7 (1.0-1.8) L 08/24/17 19:42 Serum , Qual NEGATIVE (NEGATIVE) 08/24/17 19:42 Urine Source MIDSTREAM 08/25/17 12:04 Urine Color YELLOW 08/25/17 12:04 Urine Clarity HAZY (CLEAR) 08/25/17 12:04 Urine pH 8.0 (4.6 - 8.0) 08/25/17 12:04 Ur Specific [place] 1.020 (1.005-1.030) 08/25/17 12:04 Urine Protein >=300 mg/dL (NEGATIVE) 08/25/17 12:04 Urine Glucose (UA) 500 mg/dL (NEGATIVE) H 08/25/17 12:04 Urine Ketones NEGATIVE mg/dL (NEGATIVE) 08/25/17 12:04 Urine Blood TRACE (NEGATIVE) 08/25/17 12:04 Urine Nitrate NEGATIVE (NEGATIVE) 08/25/17 12:04 Urine Bilirubin NEGATIVE (NEGATIVE) 08/25/17 12:04 Urine Urobilinogen 0.2 E.U./dL (0.2 - 1.0) 08/25/17 12:04 Ur Leukocyte Esterase NEGATIVE (NEGATIVE) 08/25/17 12:04 Urine RBC 0-2 /hpf (0-5) 08/25/17 12:04 Urine WBC 6-10 /hpf (0-5) H 08/25/17 12:04 Ur Epithelial Cells FEW /lpf (FEW) 08/25/17 12:04 Urine Bacteria 1+ /hpf (NONE SEEN) H 08/25/17 12:04 - Physical Exam Vitals and I&O: Vital Signs Temp 98.1 F 08/26/17 20:00 Pulse 89 08/26/17 20:00 Resp 20 08/26/17 20:00 BP 113/55 08/26/17 20:00 Pulse Ox 96 08/26/17 20:00 Intake & Output 08/26/17 08/26/17 08/27/17 06:59 18:59 06:59 Intake Total 50 650 100 Balance 50 650 100 Weight (lbs) 97.522 kg 97.522 kg Intake: Intake, IV Amount 50 50 100 Piperacillin Sodium/ 50 50 100 Tazobact 2.25 gm In Sodium Chloride 0.9% 50 ml @ 100 mls/hr IV Q8HR [facility] Rx#:[id number] Oral 600 Other: # Voids 3 # Bowel Movements 1 Weight Source Bedscale Bedscale Active Medications: Current Medications Acetaminophen (Tylenol) 650 mg PO Q6HR PRN PRN Reason: Fever >101 or Mild Pain Stop: 10/23/17 23:20 Acetaminophen/Codeine Phosphate (Tylenol W/Codeine #3) 1 tab PO Q6H PRN PRN Reason: Pain (Moderate) Stop: 10/23/17 23:20 Albuterol/Ipratropium (Duoneb Neb) 3 ml HHN Q4HRT [facility] Stop: 10/25/17 14:59 Last Admin: 08/26/17 19:27 Dose: 3 ml Amlodipine Besylate (Norvasc) 5 mg PO DAILY [facility] Stop: 10/24/17 08:59 Last Admin: 08/26/17 08:51 Dose: Not Given Bisacodyl (Dulcolax 10 Mg Supp) 10 mg RC DAILY PRN PRN Reason: Constipation Stop: 10/23/17 23:20 Docusate Sodium (Colace) 100 mg PO DAILY [facility] Stop: 10/24/17 08:59 Last Admin: 08/26/17 08:51 Dose: Not Given Ferrous Sulfate (Iron) 325 mg PO TID [facility] Stop: 10/24/17 08:59 Last Admin: 08/26/17 20:25 Dose: 325 mg Furosemide (Lasix) 40 mg PO DAILY [facility] Stop: 10/24/17 08:59 Last Admin: 08/26/17 08:52 Dose: 40 mg Glipizide (Glucotrol) 5 mg PO AC [facility] Stop: 10/24/17 07:29 Last Admin: 08/26/17 18:31 Dose: Not Given Glucagon (Glucagen) 1 mg IM UD PRN PRN Reason: HYPOGLYCEMIA Stop: 10/24/17 00:14 Guaifenesin/Dextromethorphan (Robitussin Dm) 10 ml PO Q4H PRN PRN Reason: Cough Stop: 10/23/17 23:31 Heparin Sodium (Porcine) (Heparin Sodium) 0 units HD UD [facility] Stop: 08/27/17 00:00 Last Admin: 08/26/17 08:54 Dose: Not Given Piperacillin Sod/Tazobactam (Sod 2.25 gm/ Sodium Chloride) 50 mls @ 100 mls/hr IV Q8HR [facility] Stop: 10/24/17 00:00 Last Infusion: 08/26/17 20:55 Dose: Infused Morphine Sulfate (Morphine) 2 mg IV HS PRN PRN Reason: Pain (Severe) Stop: 10/23/17 23:20 Last Admin: 08/26/17 01:53 Dose: 2 mg Morphine Sulfate (Morphine) 3 mg IVP Q4HR PRN PRN Reason: Pain (Severe) Stop: 10/24/17 13:17 Last Admin: 08/26/17 18:54 Dose: 3 mg Ondansetron HCl (Zofran) 4 mg IV Q4H PRN PRN Reason: Nausea / Vomiting Stop: 10/24/17 18:16 Last Admin: 08/25/17 20:21 Dose: 4 mg Pantoprazole Sodium (Protonix) 40 mg PO QDAC [facility] Stop: 10/24/17 07:29 Last Admin: 08/26/17 08:54 Dose: 40 mg Senna (Senna) 8.6 mg PO DAILY [facility] Stop: 10/24/17 08:59 Last Admin: 08/26/17 08:50 Dose: Not Given Sevelamer Carbonate (Renvela) 2,400 mg PO TIDWM [facility] Stop: 10/24/17 07:59 Last Admin: 08/26/17 18:51 Dose: 2,400 mg General: weak, lethargic, congested, NAD HEENT: NC/AT, PERRLA, EOMI, anicteric sclerae Neck: Supple, No JVD, No thyromegaly, +2 carotid pulse wo bruit, No LAD Lungs: wheezing, ronchi Cardiovascular: RRR, Normal S1, Normal S2 Abdomen: soft, non-tender Extremities: edema, pedal pulses, ecchymosis Neurological: no change, alert, muscle weakness Internal Medicine Assmt/Plan - Assessment Assessment: Bl. PNA: IVPB ABX; RT protocol. Noncompliance with diet: education provided. Cough: Robitussin PRN. SOB: continue RT protocol. Chest congestion: multifactorial. Pleural effusion: due to fluid overload? Intractable pain/chronic pain syndrome. ESRD: on HD. DM: SSI low dose. Elevated BNP: partly due to ESRD on HD. Difficult walking: fall precaution. DVT Prophylaxis.
[2017-08-27] MEDS: Albuterol/Ipratropium Neb 3 ML AERS HHN SCH ×6 (03:17→23:12)
[2017-08-27] MEDS: Morphine Sulfate 2 mg/mL 1mL Syr IV PRN ×4 (03:43→23:36)
[2017-08-27] MEDS: Pantoprazole 40 mg EC Tab PO SCH (06:51)
[2017-08-27] MEDS: Ferrous Sulfate 325 MG TAB PO SCH ×3 (08:24→20:30)
[2017-08-27 12:13] LABS: HEP B SURFACE AB QUANT <3.1 mIU/mL (Immunity>9.9); HEP B SURFACE AG QL Negative (Negative)
--- NOTE | 2017-08-27 14:16 | General Progress Note ---
Subjective - Review of Systems Service Date: 08/27/17 Subjective: still w/ cough, congestion Objective - Results Result Diagrams: 08/26/17 05:50 08/26/17 05:50 Recent Labs: Laboratory Last Values WBC 8.0 Th/cmm (4.8-10.8) 08/26/17 05:50 RBC 3.33 Mil/cmm (3.80-5.10) L 08/26/17 05:50 Hgb 10.6 gm/dL (12-16) L 08/26/17 05:50 Hct 31.4 % (41.0-60) L 08/26/17 05:50 MCV 94.3 fl (81-100) 08/26/17 05:50 MCH 31.8 pg (27.0-31.0) H 08/26/17 05:50 MCHC Differential 33.8 pg (28.0-36.0) 08/26/17 05:50 RDW 15.1 % (11.5-20.0) 08/26/17 05:50 Plt Count 223 Th/cmm (150-400) 08/26/17 05:50 MPV 7.5 fl 08/26/17 05:50 Neutrophils % 73.7 % (40.0-80.0) 08/26/17 05:50 Lymphocytes % 13.7 % (20.0-50.0) L 08/26/17 05:50 Monocytes % 8.2 % (2.0-10.0) 08/26/17 05:50 Eosinophils % 3.9 % (0.0-5.0) 08/26/17 05:50 Basophils % 0.5 % (0.0-2.0) 08/26/17 05:50 PT 10.5 SECONDS (9.5-11.5) 08/24/17 19:42 INR 1.01 (0.5-1.4) 08/24/17 19:42 PTT (Actin FS) 26.1 SECONDS (26.0-38.0) 08/24/17 19:42 Sodium 135 mEq/L (136-145) L 08/26/17 05:50 Potassium 3.9 mEq/L (3.5-5.1) 08/26/17 05:50 Chloride 99 mEq/L (98-107) 08/26/17 05:50 Carbon Dioxide 29.0 mEq/L (21.0-31.0) 08/26/17 05:50 Anion Gap 10.9 (7.0-16.0) 08/26/17 05:50 BUN 30 mg/dL (7-25) H 08/26/17 05:50 Creatinine 4.5 mg/dL (0.6-1.2) H* 08/26/17 05:50 Est GFR ( Amer) 13.1 ml/min (>90) 08/26/17 05:50 Est GFR (Non-Af Amer) 10.8 ml/min 08/26/17 05:50 BUN/Creatinine Ratio 6.7 08/26/17 05:50 Glucose 90 mg/dL (70-105) 08/26/17 05:50 POC Glucose 123 MG/DL (70 - 105) H 08/27/17 11:11 Whole Bld Lactic Acid 1.23 mmol/L (0.60-1.99) 08/24/17 19:42 Calcium 8.4 mg/dL (8.6-10.3) L 08/26/17 05:50 Phosphorus 3.8 mg/dL (2.5-5.0) 08/26/17 05:50 Total Bilirubin 0.2 mg/dL (0.3-1.0) L 08/24/17 19:42 AST 18 U/L (13-39) 08/24/17 19:42 ALT 15 U/L (7-52) 08/24/17 19:42 Alkaline Phosphatase 113 U/L (34-104) H 08/24/17 19:42 Creatine Kinase 77 U/L (30-223) 08/24/17 19:42 Troponin I 0.04 ng/mL (0.01-0.05) 08/24/17 19:42 B-Natriuretic Peptide 2410.0 pg/mL (5.0-100.0) H 08/25/17 05:20 Total Protein 7.1 gm/dL (6.0-8.3) 08/24/17 19:42 Albumin 3.0 gm/dL (3.7-5.3) L 08/24/17 19:42 Globulin 4.1 gm/dL 08/24/17 19:42 Albumin/Globulin Ratio 0.7 (1.0-1.8) L 08/24/17 19:42 Serum , Qual NEGATIVE (NEGATIVE) 08/24/17 19:42 Urine Source MIDSTREAM 08/25/17 12:04 Urine Color YELLOW 08/25/17 12:04 Urine Clarity HAZY (CLEAR) 08/25/17 12:04 Urine pH 8.0 (4.6 - 8.0) 08/25/17 12:04 Ur Specific [place] 1.020 (1.005-1.030) 08/25/17 12:04 Urine Protein >=300 mg/dL (NEGATIVE) 08/25/17 12:04 Urine Glucose (UA) 500 mg/dL (NEGATIVE) H 08/25/17 12:04 Urine Ketones NEGATIVE mg/dL (NEGATIVE) 08/25/17 12:04 Urine Blood TRACE (NEGATIVE) 08/25/17 12:04 Urine Nitrate NEGATIVE (NEGATIVE) 08/25/17 12:04 Urine Bilirubin NEGATIVE (NEGATIVE) 08/25/17 12:04 Urine Urobilinogen 0.2 E.U./dL (0.2 - 1.0) 08/25/17 12:04 Ur Leukocyte Esterase NEGATIVE (NEGATIVE) 08/25/17 12:04 Urine RBC 0-2 /hpf (0-5) 08/25/17 12:04 Urine WBC 6-10 /hpf (0-5) H 08/25/17 12:04 Ur Epithelial Cells FEW /lpf (FEW) 08/25/17 12:04 Urine Bacteria 1+ /hpf (NONE SEEN) H 08/25/17 12:04 Hep Bs Antigen Negative (Negative) 08/25/17 05:20 Hep Bs Antibody, Quant <3.1 mIU/mL (Immunity>9.9) L 08/25/17 05:20 Hepatitis C Antibody <0.1 s/co ratio (0.0-0.9) 08/25/17 05:20 - Physical Exam Vitals and I&O: Vital Signs Temp 97.5 F 08/27/17 11:37 Pulse 86 08/27/17 11:37 Resp 18 08/27/17 12:00 BP 130/82 08/27/17 11:37 Pulse Ox 97 08/27/17 11:37 Intake & Output 08/26/17 08/27/17 08/27/17 18:59 06:59 18:59 Intake Total 650 510 Balance 650 510 Weight (lbs) 97.522 kg 97.976 kg Intake: Intake, IV Amount 50 150 Piperacillin Sodium/ 50 150 Tazobact 2.25 gm In Sodium Chloride 0.9% 50 ml @ 100 mls/hr IV Q8HR [facility] Rx#:[id number] Oral 600 360 Other: # Voids 3 2 # Bowel Movements 1 Weight Source Bedscale Bedscale Active Medications: Current Medications Acetaminophen (Tylenol) 650 mg PO Q6HR PRN PRN Reason: Fever >101 or Mild Pain Stop: 10/23/17 23:20 Acetaminophen/Codeine Phosphate (Tylenol W/Codeine #3) 1 tab PO Q6H PRN PRN Reason: Pain (Moderate) Stop: 10/23/17 23:20 Albuterol/Ipratropium (Duoneb Neb) 3 ml HHN Q4HRT [facility] Stop: 10/25/17 14:59 Last Admin: 08/27/17 10:48 Dose: 3 ml Amlodipine Besylate (Norvasc) 5 mg PO DAILY [facility] Stop: 10/24/17 08:59 Last Admin: 08/27/17 08:25 Dose: 5 mg Bisacodyl (Dulcolax 10 Mg Supp) 10 mg RC DAILY PRN PRN Reason: Constipation Stop: 10/23/17 23:20 Docusate Sodium (Colace) 100 mg PO DAILY [facility] Stop: 10/24/17 08:59 Last Admin: 08/27/17 08:29 Dose: Not Given Ferrous Sulfate (Iron) 325 mg PO TID [facility] Stop: 10/24/17 08:59 Last Admin: 08/27/17 13:10 Dose: 325 mg Furosemide (Lasix) 40 mg PO DAILY [facility] Stop: 10/24/17 08:59 Last Admin: 08/27/17 08:25 Dose: 40 mg Glipizide (Glucotrol) 5 mg PO AC [facility] Stop: 10/24/17 07:29 Last Admin: 08/27/17 11:13 Dose: 5 mg Glucagon (Glucagen) 1 mg IM UD PRN PRN Reason: HYPOGLYCEMIA Stop: 10/24/17 00:14 Guaifenesin/Dextromethorphan (Robitussin Dm) 10 ml PO Q4H PRN PRN Reason: Cough Stop: 10/23/17 23:31 Piperacillin Sod/Tazobactam (Sod 2.25 gm/ Sodium Chloride) 50 mls @ 100 mls/hr IV Q8HR [facility] Stop: 10/24/17 00:00 Last Admin: 08/27/17 13:10 Dose: 100 mls/hr Morphine Sulfate (Morphine) 2 mg IV HS PRN PRN Reason: Pain (Severe) Stop: 10/23/17 23:20 Last Admin: 08/27/17 11:13 Dose: 2 mg Morphine Sulfate (Morphine) 3 mg IVP Q4HR PRN PRN Reason: Pain (Severe) Stop: 10/24/17 13:17 Last Admin: 08/26/17 18:54 Dose: 3 mg Ondansetron HCl (Zofran) 4 mg IV Q4H PRN PRN Reason: Nausea / Vomiting Stop: 10/24/17 18:16 Last Admin: 08/25/17 20:21 Dose: 4 mg Pantoprazole Sodium (Protonix) 40 mg PO QDAC [facility] Stop: 10/24/17 07:29 Last Admin: 08/27/17 06:51 Dose: 40 mg Senna (Senna) 8.6 mg PO DAILY [facility] Stop: 10/24/17 08:59 Last Admin: 08/27/17 08:25 Dose: 8.6 mg Sevelamer Carbonate (Renvela) 2,400 mg PO TIDWM [facility] Stop: 10/24/17 07:59 Last Admin: 08/27/17 11:13 Dose: 2,400 mg General: Alert, Oriented x3, Mild distress HEENT: Atraumatic, EOMI, Mucous membr. moist/pink Neck: Supple, +2 carotid pulse wo bruit Cardiovascular: Regular rate, Normal S1, Normal S2 Lungs: Other (rhonchi, congestion) Abdomen: Bowel sounds, Soft Extremities: no Edema Neurological: Sensation intact Skin: no Rash Psych/Mental Status: Mood NL Assessment/Plan - Assessment Assessment: ESRD on HD Right LL HAP T2DM w/ CKD Ess Htn w/ CKD COPD - Plan Plan: Lab - Result Diagrams 08/26/17 05:50 08/26/17 05:50 Current Medications Acetaminophen (Tylenol) 650 mg PO Q6HR PRN PRN Reason: Fever >101 or Mild Pain Stop: 10/23/17 23:20 Acetaminophen/Codeine Phosphate (Tylenol W/Codeine #3) 1 tab PO Q6H PRN PRN Reason: Pain (Moderate) Stop: 10/23/17 23:20 Albuterol/Ipratropium (Duoneb Neb) 3 ml HHN Q4HRT [facility] Stop: 10/25/17 14:59 Amlodipine Besylate (Norvasc) 5 mg PO DAILY [facility] Stop: 10/24/17 08:59 Last Admin: 08/26/17 08:51 Dose: Not Given Bisacodyl (Dulcolax 10 Mg Supp) 10 mg RC DAILY PRN PRN Reason: Constipation Stop: 10/23/17 23:20 Docusate Sodium (Colace) 100 mg PO DAILY [facility] Stop: 10/24/17 08:59 Last Admin: 08/26/17 08:51 Dose: Not Given Ferrous Sulfate (Iron) 325 mg PO TID [facility] Stop: 10/24/17 08:59 Last Admin: 08/26/17 13:59 Dose: 325 mg Furosemide (Lasix) 40 mg PO DAILY [facility] Stop: 10/24/17 08:59 Last Admin: 08/26/17 08:52 Dose: 40 mg Glipizide (Glucotrol) 5 mg PO AC [facility] Stop: 10/24/17 07:29 Last Admin: 08/26/17 13:46 Dose: Not Given Glucagon (Glucagen) 1 mg IM UD PRN PRN Reason: HYPOGLYCEMIA Stop: 10/24/17 00:14 Guaifenesin/Dextromethorphan (Robitussin Dm) 10 ml PO Q4H PRN PRN Reason: Cough Stop: 10/23/17 23:31 Heparin Sodium (Porcine) (Heparin Sodium) 0 units HD UD [facility] Stop: 08/27/17 00:00 Last Admin: 08/26/17 08:54 Dose: Not Given Piperacillin Sod/Tazobactam (Sod 2.25 gm/ Sodium Chloride) 50 mls @ 100 mls/hr IV Q8HR [facility] Stop: 10/24/17 00:00 Last Admin: 08/26/17 12:39 Dose: 100 mls/hr Morphine Sulfate (Morphine) 2 mg IV HS PRN PRN Reason: Pain (Severe) Stop: 10/23/17 23:20 Last Admin: 08/26/17 01:53 Dose: 2 mg Morphine Sulfate (Morphine) 3 mg IVP Q4HR PRN PRN Reason: Pain (Severe) Stop: 10/24/17 13:17 Last Admin: 08/26/17 12:11 Dose: 3 mg Ondansetron HCl (Zofran) 4 mg IV Q4H PRN PRN Reason: Nausea / Vomiting Stop: 10/24/17 18:16 Last Admin: 08/25/17 20:21 Dose: 4 mg Pantoprazole Sodium (Protonix) 40 mg PO QDAC [facility] Stop: 10/24/17 07:29 Last Admin: 08/26/17 08:54 Dose: 40 mg Senna (Senna) 8.6 mg PO DAILY [facility] Stop: 10/24/17 08:59 Last Admin: 08/26/17 08:50 Dose: Not Given Sevelamer Carbonate (Renvela) 2,400 mg PO TIDWM [facility] Stop: 10/24/17 07:59 Last Admin: 08/26/17 13:59 Dose: 2,400 mg Lab - Result Diagrams 08/26/17 05:50 08/26/17 05:50 currently being dialyzed continue ABx & breathing Tx
--- NOTE | 2017-08-27 22:18 | Internal Medicine Prog Note ---
Internal Medicine Subjective - Subjective Service Date: 08/27/17 Patient is:: awake, verbal, interactive, in bed Patient Complaints of:: congestion, sore throat, cough, LBP, headache, SOB Per staff patient has:: no adverse event Internal Medicine Objective - Results Result Diagrams: 08/26/17 05:50 08/26/17 05:50 Recent Labs: Laboratory Last Values WBC 8.0 Th/cmm (4.8-10.8) 08/26/17 05:50 RBC 3.33 Mil/cmm (3.80-5.10) L 08/26/17 05:50 Hgb 10.6 gm/dL (12-16) L 08/26/17 05:50 Hct 31.4 % (41.0-60) L 08/26/17 05:50 MCV 94.3 fl (81-100) 08/26/17 05:50 MCH 31.8 pg (27.0-31.0) H 08/26/17 05:50 MCHC Differential 33.8 pg (28.0-36.0) 08/26/17 05:50 RDW 15.1 % (11.5-20.0) 08/26/17 05:50 Plt Count 223 Th/cmm (150-400) 08/26/17 05:50 MPV 7.5 fl 08/26/17 05:50 Neutrophils % 73.7 % (40.0-80.0) 08/26/17 05:50 Lymphocytes % 13.7 % (20.0-50.0) L 08/26/17 05:50 Monocytes % 8.2 % (2.0-10.0) 08/26/17 05:50 Eosinophils % 3.9 % (0.0-5.0) 08/26/17 05:50 Basophils % 0.5 % (0.0-2.0) 08/26/17 05:50 PT 10.5 SECONDS (9.5-11.5) 08/24/17 19:42 INR 1.01 (0.5-1.4) 08/24/17 19:42 PTT (Actin FS) 26.1 SECONDS (26.0-38.0) 08/24/17 19:42 Sodium 135 mEq/L (136-145) L 08/26/17 05:50 Potassium 3.9 mEq/L (3.5-5.1) 08/26/17 05:50 Chloride 99 mEq/L (98-107) 08/26/17 05:50 Carbon Dioxide 29.0 mEq/L (21.0-31.0) 08/26/17 05:50 Anion Gap 10.9 (7.0-16.0) 08/26/17 05:50 BUN 30 mg/dL (7-25) H 08/26/17 05:50 Creatinine 4.5 mg/dL (0.6-1.2) H* 08/26/17 05:50 Est GFR ( Amer) 13.1 ml/min (>90) 08/26/17 05:50 Est GFR (Non-Af Amer) 10.8 ml/min 08/26/17 05:50 BUN/Creatinine Ratio 6.7 08/26/17 05:50 Glucose 90 mg/dL (70-105) 08/26/17 05:50 POC Glucose 207 MG/DL (70 - 105) H 08/27/17 16:24 Whole Bld Lactic Acid 1.23 mmol/L (0.60-1.99) 08/24/17 19:42 Calcium 8.4 mg/dL (8.6-10.3) L 08/26/17 05:50 Phosphorus 3.8 mg/dL (2.5-5.0) 08/26/17 05:50 Total Bilirubin 0.2 mg/dL (0.3-1.0) L 08/24/17 19:42 AST 18 U/L (13-39) 08/24/17 19:42 ALT 15 U/L (7-52) 08/24/17 19:42 Alkaline Phosphatase 113 U/L (34-104) H 08/24/17 19:42 Creatine Kinase 77 U/L (30-223) 08/24/17 19:42 Troponin I 0.04 ng/mL (0.01-0.05) 08/24/17 19:42 B-Natriuretic Peptide 2410.0 pg/mL (5.0-100.0) H 08/25/17 05:20 Total Protein 7.1 gm/dL (6.0-8.3) 08/24/17 19:42 Albumin 3.0 gm/dL (3.7-5.3) L 08/24/17 19:42 Globulin 4.1 gm/dL 08/24/17 19:42 Albumin/Globulin Ratio 0.7 (1.0-1.8) L 08/24/17 19:42 Serum , Qual NEGATIVE (NEGATIVE) 08/24/17 19:42 Urine Source MIDSTREAM 08/25/17 12:04 Urine Color YELLOW 08/25/17 12:04 Urine Clarity HAZY (CLEAR) 08/25/17 12:04 Urine pH 8.0 (4.6 - 8.0) 08/25/17 12:04 Ur Specific [place] 1.020 (1.005-1.030) 08/25/17 12:04 Urine Protein >=300 mg/dL (NEGATIVE) 08/25/17 12:04 Urine Glucose (UA) 500 mg/dL (NEGATIVE) H 08/25/17 12:04 Urine Ketones NEGATIVE mg/dL (NEGATIVE) 08/25/17 12:04 Urine Blood TRACE (NEGATIVE) 08/25/17 12:04 Urine Nitrate NEGATIVE (NEGATIVE) 08/25/17 12:04 Urine Bilirubin NEGATIVE (NEGATIVE) 08/25/17 12:04 Urine Urobilinogen 0.2 E.U./dL (0.2 - 1.0) 08/25/17 12:04 Ur Leukocyte Esterase NEGATIVE (NEGATIVE) 08/25/17 12:04 Urine RBC 0-2 /hpf (0-5) 08/25/17 12:04 Urine WBC 6-10 /hpf (0-5) H 08/25/17 12:04 Ur Epithelial Cells FEW /lpf (FEW) 08/25/17 12:04 Urine Bacteria 1+ /hpf (NONE SEEN) H 08/25/17 12:04 Hep Bs Antigen Negative (Negative) 08/25/17 05:20 Hep Bs Antibody, Quant <3.1 mIU/mL (Immunity>9.9) L 08/25/17 05:20 Hepatitis C Antibody <0.1 s/co ratio (0.0-0.9) 08/25/17 05:20 - Physical Exam Vitals and I&O: Vital Signs Temp 98.2 F 08/27/17 20:00 Pulse 105 08/27/17 20:00 Resp 18 08/27/17 20:00 BP 101/59 08/27/17 20:00 Pulse Ox 96 08/27/17 20:00 Intake & Output 08/27/17 08/27/17 08/28/17 06:59 18:59 06:59 Intake Total 510 900 Balance 510 900 Weight (lbs) 97.976 kg 98.067 kg Intake: Intake, IV Amount 150 50 Piperacillin Sodium/ 150 50 Tazobact 2.25 gm In Sodium Chloride 0.9% 50 ml @ 100 mls/hr IV Q8HR [facility] Rx#:[id number] Oral 360 850 Other: # Voids 2 3 # Bowel Movements 0 Weight Source Bedscale Bedscale Active Medications: Current Medications Acetaminophen (Tylenol) 650 mg PO Q6HR PRN PRN Reason: Fever >101 or Mild Pain Stop: 10/23/17 23:20 Acetaminophen/Codeine Phosphate (Tylenol W/Codeine #3) 1 tab PO Q6H PRN PRN Reason: Pain (Moderate) Stop: 10/23/17 23:20 Albuterol/Ipratropium (Duoneb Neb) 3 ml HHN Q4HRT [facility] Stop: 10/25/17 14:59 Last Admin: 08/27/17 19:01 Dose: 3 ml Amlodipine Besylate (Norvasc) 5 mg PO DAILY [facility] Stop: 10/24/17 08:59 Last Admin: 08/27/17 08:25 Dose: 5 mg Bisacodyl (Dulcolax 10 Mg Supp) 10 mg RC DAILY PRN PRN Reason: Constipation Stop: 10/23/17 23:20 Docusate Sodium (Colace) 100 mg PO DAILY [facility] Stop: 10/24/17 08:59 Last Admin: 08/27/17 08:29 Dose: Not Given Ferrous Sulfate (Iron) 325 mg PO TID [facility] Stop: 10/24/17 08:59 Last Admin: 08/27/17 20:30 Dose: 325 mg Furosemide (Lasix) 40 mg PO DAILY [facility] Stop: 10/24/17 08:59 Last Admin: 08/27/17 08:25 Dose: 40 mg Glipizide (Glucotrol) 5 mg PO DAILY [facility] Stop: 10/27/17 07:29 Glucagon (Glucagen) 1 mg IM UD PRN PRN Reason: HYPOGLYCEMIA Stop: 10/24/17 00:14 Guaifenesin/Dextromethorphan (Robitussin Dm) 10 ml PO Q4H PRN PRN Reason: Cough Stop: 10/23/17 23:31 Piperacillin Sod/Tazobactam (Sod 2.25 gm/ Sodium Chloride) 50 mls @ 100 mls/hr IV Q8HR [facility] Stop: 10/24/17 00:00 Last Admin: 08/27/17 20:30 Dose: 100 mls/hr Morphine Sulfate (Morphine) 2 mg IV HS PRN PRN Reason: Pain (Severe) Stop: 10/23/17 23:20 Last Admin: 08/27/17 19:32 Dose: 2 mg Morphine Sulfate (Morphine) 3 mg IVP Q4HR PRN PRN Reason: Pain (Severe) Stop: 10/24/17 13:17 Last Admin: 08/26/17 18:54 Dose: 3 mg Ondansetron HCl (Zofran) 4 mg IV Q4H PRN PRN Reason: Nausea / Vomiting Stop: 10/24/17 18:16 Last Admin: 08/27/17 20:30 Dose: 4 mg Pantoprazole Sodium (Protonix) 40 mg PO QDAC [facility] Stop: 10/24/17 07:29 Last Admin: 08/27/17 06:51 Dose: 40 mg Senna (Senna) 8.6 mg PO DAILY [facility] Stop: 10/24/17 08:59 Last Admin: 08/27/17 08:25 Dose: 8.6 mg Sevelamer Carbonate (Renvela) 2,400 mg PO TIDWM [facility] Stop: 10/24/17 07:59 Last Admin: 08/27/17 16:27 Dose: 2,400 mg General: weak, lethargic, congested, NAD HEENT: NC/AT, PERRLA, EOMI, anicteric sclerae Neck: Supple, No JVD, No thyromegaly, +2 carotid pulse wo bruit, No LAD Lungs: wheezing, ronchi Cardiovascular: RRR, Normal S1, Normal S2 Abdomen: soft, non-tender Extremities: edema, pedal pulses, ecchymosis Neurological: no change, alert, muscle weakness Internal Medicine Assmt/Plan - Assessment Assessment: SOB: continue RT protocol. Chest congestion: multifactorial. Bl. PNA: IVPB ABX; RT protocol; CXR to repeat, pending result. Noncompliance with diet: education provided. Cough: Robitussin PRN. Pleural effusion: due to fluid overload? Intractable pain/chronic pain syndrome. ESRD: on HD. DM: SSI low dose. Elevated BNP: partly due to ESRD on HD. Difficult walking: fall precaution. DVT Prophylaxis.
[2017-08-28] MEDS: Albuterol/Ipratropium Neb 3 ML AERS HHN SCH ×3 (02:38→11:46)
[2017-08-28] MEDS: Morphine Sulfate 2 mg/mL 1mL Syr IV PRN (04:50)
[2017-08-28 07:01] LABS: % BASOPHILS 0.1 % (0.0-2.0); % EOSINOPHILS 2.7 % (0.0-5.0); % LYMPHOCYTES 12.7 % (20.0-50.0); % MONOCYTES 8.8 % (2.0-10.0); % NEUTROPHILS 75.7 % (40.0-80.0); EOSINOPHILE ABSOLUTE 0.2 Th/cmm (0.1-0.4); HEMOGLOBIN 10.2 gm/dL (12-16); MEAN CORPUSCULAR HEMOGLOBIN 32.2 pg (27.0-31.0); MEAN CORPUSCULAR HGB CONC 33.8 pg (28.0-36.0); MEAN PLATELET VOLUME 8.1 fl; MONOCYTE ABSOLUTE 0.7 Th/cmm (0.3-1.0); NEUTROPHILE ABSOLUTE 5.7 Th/cmm (1.8-8.0); PLATELET COUNT 195 Th/cmm (150-400); RED BLOOD COUNT 3.16 Mil/cmm (3.80-5.10); RED CELL DISTRIBUTION WIDTH 14.5 % (11.5-20.0); WHITE BLOOD COUNT 7.6 Th/cmm (4.8-10.8)
[2017-08-28 07:27] LABS: ANION GAP 12.9 (7.0-16.0); CALCIUM SERUM 8.1 mg/dL (8.6-10.3); CARBON DIOXIDE 29.9 mEq/L (21.0-31.0); CREATININE - SERUM 3.8 mg/dL (0.6-1.2); GFR AFRICAN-AMERICAN 15.9 ml/min (>90); GFR NON AFRICAN-AMERICAN 13.2 ml/min; POTASSIUM SERUM 3.8 mEq/L (3.5-5.1)
[2017-08-28] MEDS: Pantoprazole 40 mg EC Tab PO SCH (07:38)
[2017-08-28] MEDS: Ferrous Sulfate 325 MG TAB PO SCH ×2 (08:16→13:04)
--- NOTE | 2017-08-28 09:13 | Diagnostic Imaging Report ---
Portable chest x-ray HISTORY: Shortness of breath Compared with prior exam of August 26, 2017, the heart remains enlarged. Decreased bilateral pleural effusions. No definite focal pulmonary parenchymal processes. IMPRESSION: 1. Persistent cardiomegaly with decreased small bilateral pleural effusion since August 26, 2017. Findings consistent with improving congestive heart failure.
--- NOTE | 2017-08-28 12:35 | General Progress Note ---
Subjective - Review of Systems Service Date: 08/28/17 Subjective: less cough & congestion Objective - Results Result Diagrams: 08/28/17 05:56 08/28/17 05:56 Recent Labs: Laboratory Last Values WBC 7.6 Th/cmm (4.8-10.8) 08/28/17 05:56 RBC 3.16 Mil/cmm (3.80-5.10) L 08/28/17 05:56 Hgb 10.2 gm/dL (12-16) L 08/28/17 05:56 Hct 30.0 % (41.0-60) L 08/28/17 05:56 MCV 95.0 fl (81-100) 08/28/17 05:56 MCH 32.2 pg (27.0-31.0) H 08/28/17 05:56 MCHC Differential 33.8 pg (28.0-36.0) 08/28/17 05:56 RDW 14.5 % (11.5-20.0) 08/28/17 05:56 Plt Count 195 Th/cmm (150-400) 08/28/17 05:56 MPV 8.1 fl 08/28/17 05:56 Neutrophils % 75.7 % (40.0-80.0) 08/28/17 05:56 Lymphocytes % 12.7 % (20.0-50.0) L 08/28/17 05:56 Monocytes % 8.8 % (2.0-10.0) 08/28/17 05:56 Eosinophils % 2.7 % (0.0-5.0) 08/28/17 05:56 Basophils % 0.1 % (0.0-2.0) 08/28/17 05:56 PT 10.5 SECONDS (9.5-11.5) 08/24/17 19:42 INR 1.01 (0.5-1.4) 08/24/17 19:42 PTT (Actin FS) 26.1 SECONDS (26.0-38.0) 08/24/17 19:42 Sodium 136 mEq/L (136-145) 08/28/17 05:56 Potassium 3.8 mEq/L (3.5-5.1) 08/28/17 05:56 Chloride 97 mEq/L (98-107) L 08/28/17 05:56 Carbon Dioxide 29.9 mEq/L (21.0-31.0) 08/28/17 05:56 Anion Gap 12.9 (7.0-16.0) 08/28/17 05:56 BUN 22 mg/dL (7-25) 08/28/17 05:56 Creatinine 3.8 mg/dL (0.6-1.2) H 08/28/17 05:56 Est GFR ( Amer) 15.9 ml/min (>90) 08/28/17 05:56 Est GFR (Non-Af Amer) 13.2 ml/min 08/28/17 05:56 BUN/Creatinine Ratio 5.8 08/28/17 05:56 Glucose 121 mg/dL (70-105) H 08/28/17 05:56 POC Glucose 104 MG/DL (70 - 105) 08/28/17 07:42 Whole Bld Lactic Acid 1.23 mmol/L (0.60-1.99) 08/24/17 19:42 Calcium 8.1 mg/dL (8.6-10.3) L 08/28/17 05:56 Phosphorus 3.8 mg/dL (2.5-5.0) 08/26/17 05:50 Total Bilirubin 0.2 mg/dL (0.3-1.0) L 08/24/17 19:42 AST 18 U/L (13-39) 08/24/17 19:42 ALT 15 U/L (7-52) 08/24/17 19:42 Alkaline Phosphatase 113 U/L (34-104) H 08/24/17 19:42 Creatine Kinase 77 U/L (30-223) 08/24/17 19:42 Troponin I 0.04 ng/mL (0.01-0.05) 08/24/17 19:42 B-Natriuretic Peptide 2410.0 pg/mL (5.0-100.0) H 08/25/17 05:20 Total Protein 7.1 gm/dL (6.0-8.3) 08/24/17 19:42 Albumin 3.0 gm/dL (3.7-5.3) L 08/24/17 19:42 Globulin 4.1 gm/dL 08/24/17 19:42 Albumin/Globulin Ratio 0.7 (1.0-1.8) L 08/24/17 19:42 Serum , Qual NEGATIVE (NEGATIVE) 08/24/17 19:42 Urine Source MIDSTREAM 08/25/17 12:04 Urine Color YELLOW 08/25/17 12:04 Urine Clarity HAZY (CLEAR) 08/25/17 12:04 Urine pH 8.0 (4.6 - 8.0) 08/25/17 12:04 Ur Specific Boyle 1.020 (1.005-1.030) 08/25/17 12:04 Urine Protein >=300 mg/dL (NEGATIVE) 08/25/17 12:04 Urine Glucose (UA) 500 mg/dL (NEGATIVE) H 08/25/17 12:04 Urine Ketones NEGATIVE mg/dL (NEGATIVE) 08/25/17 12:04 Urine Blood TRACE (NEGATIVE) 08/25/17 12:04 Urine Nitrate NEGATIVE (NEGATIVE) 08/25/17 12:04 Urine Bilirubin NEGATIVE (NEGATIVE) 08/25/17 12:04 Urine Urobilinogen 0.2 E.U./dL (0.2 - 1.0) 08/25/17 12:04 Ur Leukocyte Esterase NEGATIVE (NEGATIVE) 08/25/17 12:04 Urine RBC 0-2 /hpf (0-5) 08/25/17 12:04 Urine WBC 6-10 /hpf (0-5) H 08/25/17 12:04 Ur Epithelial Cells FEW /lpf (FEW) 08/25/17 12:04 Urine Bacteria 1+ /hpf (NONE SEEN) H 08/25/17 12:04 Hep Bs Antigen Negative (Negative) 08/25/17 05:20 Hep Bs Antibody, Quant <3.1 mIU/mL (Immunity>9.9) L 08/25/17 05:20 Hepatitis C Antibody <0.1 s/co ratio (0.0-0.9) 08/25/17 05:20 - Physical Exam Vitals and I&O: Vital Signs Temp 98.0 F 08/28/17 11:59 Pulse 72 08/28/17 11:59 Resp 18 08/28/17 11:59 BP 138/73 08/28/17 11:59 Pulse Ox 98 08/28/17 11:59 Intake & Output 08/27/17 08/28/17 08/28/17 18:59 06:59 18:59 Intake Total 900 50 Balance 900 50 Weight (lbs) 98.067 kg 96.57 kg Intake: Intake, IV Amount 50 50 Piperacillin Sodium/ 50 50 Tazobact 2.25 gm In Sodium Chloride 0.9% 50 ml @ 100 mls/hr IV Q8HR [facility] Rx#:[id number] Oral 850 Other: # Voids 3 # Bowel Movements 0 Weight Source Bedscale Bedscale Active Medications: Current Medications Acetaminophen (Tylenol) 650 mg PO Q6HR PRN PRN Reason: Fever >101 or Mild Pain Stop: 10/23/17 23:20 Acetaminophen/Codeine Phosphate (Tylenol W/Codeine #3) 1 tab PO Q6H PRN PRN Reason: Pain (Moderate) Stop: 10/23/17 23:20 Albuterol/Ipratropium (Duoneb Neb) 3 ml HHN Q4HRT [facility] Stop: 10/25/17 14:59 Last Admin: 08/28/17 11:46 Dose: 3 ml Amlodipine Besylate (Norvasc) 5 mg PO DAILY [facility] Stop: 10/24/17 08:59 Last Admin: 08/28/17 08:16 Dose: 5 mg Bisacodyl (Dulcolax 10 Mg Supp) 10 mg RC DAILY PRN PRN Reason: Constipation Stop: 10/23/17 23:20 Docusate Sodium (Colace) 100 mg PO DAILY [facility] Stop: 10/24/17 08:59 Last Admin: 08/28/17 08:13 Dose: Not Given Ferrous Sulfate (Iron) 325 mg PO TID [facility] Stop: 10/24/17 08:59 Last Admin: 08/28/17 08:16 Dose: 325 mg Furosemide (Lasix) 40 mg PO DAILY [facility] Stop: 10/24/17 08:59 Last Admin: 08/28/17 08:16 Dose: 40 mg Glipizide (Glucotrol) 5 mg PO DAILY [facility] Stop: 10/27/17 07:29 Last Admin: 08/28/17 08:17 Dose: Not Given Glucagon (Glucagen) 1 mg IM UD PRN PRN Reason: HYPOGLYCEMIA Stop: 10/24/17 00:14 Guaifenesin/Dextromethorphan (Robitussin Dm) 10 ml PO Q4H PRN PRN Reason: Cough Stop: 10/23/17 23:31 Piperacillin Sod/Tazobactam (Sod 2.25 gm/ Sodium Chloride) 50 mls @ 100 mls/hr IV Q8HR [facility] Stop: 10/24/17 00:00 Last Admin: 08/28/17 04:50 Dose: 100 mls/hr Morphine Sulfate (Morphine) 2 mg IV HS PRN PRN Reason: Pain (Severe) Stop: 10/23/17 23:20 Last Admin: 08/28/17 04:50 Dose: 2 mg Morphine Sulfate (Morphine) 3 mg IVP Q4HR PRN PRN Reason: Pain (Severe) Stop: 10/24/17 13:17 Last Admin: 08/26/17 18:54 Dose: 3 mg Ondansetron HCl (Zofran) 4 mg IV Q4H PRN PRN Reason: Nausea / Vomiting Stop: 10/24/17 18:16 Last Admin: 08/27/17 20:30 Dose: 4 mg Pantoprazole Sodium (Protonix) 40 mg PO QDAC [facility] Stop: 10/24/17 07:29 Last Admin: 08/28/17 07:38 Dose: 40 mg Senna (Senna) 8.6 mg PO DAILY [facility] Stop: 10/24/17 08:59 Last Admin: 08/28/17 08:16 Dose: Not Given Sevelamer Carbonate (Renvela) 2,400 mg PO TIDWM [facility] Stop: 10/24/17 07:59 Last Admin: 08/28/17 07:38 Dose: 2,400 mg General: Alert, Oriented x3, Mild distress HEENT: Atraumatic, EOMI, Mucous membr. moist/pink Neck: Supple, +2 carotid pulse wo bruit Cardiovascular: Regular rate, Normal S1, Normal S2 Lungs: Other (less rhonchi, congestion) Abdomen: Bowel sounds, Soft Extremities: no Edema Neurological: Sensation intact Skin: no Rash Psych/Mental Status: Mood NL Assessment/Plan - Assessment Assessment: ESRD on HD Right LL HAP T2DM w/ CKD Ess Htn w/ CKD COPD - Plan Plan: Lab - Result Diagrams 08/26/17 05:50 08/26/17 05:50 Current Medications Acetaminophen (Tylenol) 650 mg PO Q6HR PRN PRN Reason: Fever >101 or Mild Pain Stop: 10/23/17 23:20 Acetaminophen/Codeine Phosphate (Tylenol W/Codeine #3) 1 tab PO Q6H PRN PRN Reason: Pain (Moderate) Stop: 10/23/17 23:20 Albuterol/Ipratropium (Duoneb Neb) 3 ml HHN Q4HRT [facility] Stop: 10/25/17 14:59 Amlodipine Besylate (Norvasc) 5 mg PO DAILY [facility] Stop: 10/24/17 08:59 Last Admin: 08/26/17 08:51 Dose: Not Given Bisacodyl (Dulcolax 10 Mg Supp) 10 mg RC DAILY PRN PRN Reason: Constipation Stop: 10/23/17 23:20 Docusate Sodium (Colace) 100 mg PO DAILY [facility] Stop: 10/24/17 08:59 Last Admin: 08/26/17 08:51 Dose: Not Given Ferrous Sulfate (Iron) 325 mg PO TID [facility] Stop: 10/24/17 08:59 Last Admin: 08/26/17 13:59 Dose: 325 mg Furosemide (Lasix) 40 mg PO DAILY [facility] Stop: 10/24/17 08:59 Last Admin: 08/26/17 08:52 Dose: 40 mg Glipizide (Glucotrol) 5 mg PO AC [facility] Stop: 10/24/17 07:29 Last Admin: 08/26/17 13:46 Dose: Not Given Glucagon (Glucagen) 1 mg IM UD PRN PRN Reason: HYPOGLYCEMIA Stop: 10/24/17 00:14 Guaifenesin/Dextromethorphan (Robitussin Dm) 10 ml PO Q4H PRN PRN Reason: Cough Stop: 10/23/17 23:31 Heparin Sodium (Porcine) (Heparin Sodium) 0 units HD UD [facility] Stop: 08/27/17 00:00 Last Admin: 08/26/17 08:54 Dose: Not Given Piperacillin Sod/Tazobactam (Sod 2.25 gm/ Sodium Chloride) 50 mls @ 100 mls/hr IV Q8HR [facility] Stop: 10/24/17 00:00 Last Admin: 08/26/17 12:39 Dose: 100 mls/hr Morphine Sulfate (Morphine) 2 mg IV HS PRN PRN Reason: Pain (Severe) Stop: 10/23/17 23:20 Last Admin: 08/26/17 01:53 Dose: 2 mg Morphine Sulfate (Morphine) 3 mg IVP Q4HR PRN PRN Reason: Pain (Severe) Stop: 10/24/17 13:17 Last Admin: 08/26/17 12:11 Dose: 3 mg Ondansetron HCl (Zofran) 4 mg IV Q4H PRN PRN Reason: Nausea / Vomiting Stop: 10/24/17 18:16 Last Admin: 08/25/17 20:21 Dose: 4 mg Pantoprazole Sodium (Protonix) 40 mg PO QDAC [facility] Stop: 10/24/17 07:29 Last Admin: 08/26/17 08:54 Dose: 40 mg Senna (Senna) 8.6 mg PO DAILY [facility] Stop: 10/24/17 08:59 Last Admin: 08/26/17 08:50 Dose: Not Given Sevelamer Carbonate (Renvela) 2,400 mg PO TIDWM [facility] Stop: 10/24/17 07:59 Last Admin: 08/26/17 13:59 Dose: 2,400 mg Lab - Result Diagrams 08/26/17 05:50 08/26/17 05:50 pt. dialyzed yesterday & tolerated it well continue ABx & breathing Tx
--- NOTE | 2017-08-30 06:10 | Discharge Summary ---
DATE OF DISCHARGE: 08/28/2017 FINAL DIAGNOSES: 1. Pneumonia on IVPB antibiotics. 2. End-stage renal disease, receiving hemodialysis. 3. Dietary noncompliance with education. 3. Short of breath and cough improved. 4. Chest congestion. Received RT protocol with improvement. 5. Pleural effusion probably due to fluid overload. 6. Intraoperative pain/chronic pain syndrome, improved or stabilized with morphine. 7. Diabetes. HOSPITAL COURSE: The patient is a 52-year-old female admitted due to shortness of breath, cough, and end-stage renal disease needing hemodialysis. The patient had severe chest congestion and received RT protocol and hemodialysis with improvement. Chest x-ray revealed findings consistent with pneumonia. Antibiotics were continued. During hospitalization, the patient also complained of severe pain and required morphine IV. Her pain eventually improved and she is going to be discharged back to half-way. DISCHARGE CONDITION: Stable. DISPOSITION: [facility]. DISCHARGE MEDICATIONS: Continue medication from here. DIET: Supposed to be 1800 ADA cardiac renal diet; however, the patient has a history of noncompliance. I will try again to offer patient this diet. ACTIVITY: As tolerated. FOLLOWUP: One week in the half-way. JOB# [id number]
== END 2017-08-28 14:20 | DRG 871 ==
LOC: ER 19:19 → TELE 22:25
PROVIDERS: ADMIT Internal Medicine; ATTEND Internal Medicine
PROC: 5A1D70Z Performance of Urinary Filtration, Intermittent, Less than 6 Hours Per Day (ICD-10-PCS; principal; 2017-08-25)
PROC: 5A1D70Z Performance of Urinary Filtration, Intermittent, Less than 6 Hours Per Day (ICD-10-PCS; 2017-08-27)
DX: A41.9 Sepsis, unspecified organism (principal); N18.6 End stage renal disease; J18.1 Lobar pneumonia, unspecified organism; E87.1 Hypo-osmolality and hyponatremia; I13.2 Hypertensive heart and chronic kidney disease with heart failure and with stage 5 chronic kidney disease, or end stage renal disease; J44.0 Chronic obstructive pulmonary disease with (acute) lower respiratory infection; Z99.2 Dependence on renal dialysis; E87.5 Hyperkalemia; G89.4 Chronic pain syndrome; F41.9 Anxiety disorder, unspecified; I25.10 Atherosclerotic heart disease of native coronary artery without angina pectoris; E11.22 Type 2 diabetes mellitus with diabetic chronic kidney disease; E78.5 Hyperlipidemia, unspecified; M19.90 Unspecified osteoarthritis, unspecified site; I50.9 Heart failure, unspecified; D64.9 Anemia, unspecified; I25.9 Chronic ischemic heart disease, unspecified; I25.2 Old myocardial infarction; F32.9 Major depressive disorder, single episode, unspecified; D63.1 Anemia in chronic kidney disease; Z83.3 Family history of diabetes mellitus; Z82.49 Family history of ischemic heart disease and other diseases of the circulatory system; Z90.49 Acquired absence of other specified parts of digestive tract; Z90.710 Acquired absence of both cervix and uterus; C76.0 Malignant neoplasm of head, face and neck
CPT/HCPCS: 36415-UA; 71045-TC; 80048-TC; 80053-TC; 81001-TC; 82550-TC; 82948-90; 83605; 83880-TC; 84100-TC; 84484-TC; 84703-TC; 85025-TC; 85610-TC; 85730-TC; 86706-90; 86803-90; 87070; 87340-90; 93005; 93970-TC-50; 94640; 94760; J0456; J0696; J2270; J2405; J2543; J7030; J7040; Z7610

== ENCOUNTER 2018-01-11 23:15 | Inpatient (IN) | payer MEDICARE, MEDICAID ==
--- NOTE | 2018-01-11 23:39 | ED Physician Chart ---
ED Chief Complaint/HPI - Patient Information Date Seen:: 01/11/18 Time Seen:: 23:25 Chief Complaint:: Dysuria History of Present Illness:: onset x 3 days of dysuria, and fever; no report of trauma, LOC, ALOC, AMS, H/As , S/T, neck pain, C/P, cough, SOB, Abd. Pain, A/N/V/D/C, chills, or bleeding Allergies:: Allergies Allergy/AdvReac Type Severity Reaction Status Date / Time No Known Allergies Allergy Verified 08/24/17 20:18 Vitals:: Vital Signs - 8 hr 01/11/18 23:25 Temp 97.1 F HR 94 RR 18 BP 115/61 O2 Sat % 93 Historian:: Patient, EMS Review:: Nurse's Note Reviewed, Old Chart Reviewed, EMS run form Reviewed ED Review of Systems - Review of Systems General/Constitutional: Fever, No chills, No weight loss, No weakness, No diaphoresis, No edema, No loss of appetite Skin: No skin lesions, No rash, No bruising Head: No headache, No light-headedness Eyes: No loss of vision, No pain, No diplopia ENT: No earache, No nasal drainage, No sore throat, No tinnitus Neck: No neck pain, No swelling, No thyromegaly, No stiffness, No mass noted Cardio Vascular: No chest pain, No palpitations, No PND, No orthopnea, No edema Pulmonary: No SOB, No cough, No sputum, No wheezing GI: No nausea, No vomiting, No diarrhea, No pain, No melena, No hematochezia, No constipation, No hematemesis G/U: Dysuria, Frequency, No hematuria, No nacturia 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, No abnormal vaginal bleed, No contraction Musculoskeletal: No bone or joint pain, No back pain, No muscle pain Endocrine: No polyuria, No polydipsia Psychiatric: No prior psych history, No depression, No anxiety, No suicidal ideation, No homicidal ideation, No auditory hallucination, No visual hallucination Hematopoietic: No bruising, No lymphadenopathy Allergic/Immuno: No urticaria, No angioedema Neurological: No syncope, No focal symptoms, No weakness, No paresthesia, No headache, No seizure, No dizziness, No confusion, No vertigo ED Past Medical History - Past Medical History Obtainable: Yes Past Medical History: HTN, DM, Asthma/COPD, Dyslipidemia, PUD/GERD, ESRD Family History: Diabetes Melitus, HTN Social History: Non Smoker, No Alcohol, No Drug Use, Single, Care Facility Surgical History: None Psychiatricy History: None Medication: Reviewed Family Medical History - Family Member Mother History Unknown: Yes Ethnicity: Living Status: Hx Family Cancer: Yes Hx Family Coronary Artery Disease: (domt know) Hx Family Congestive Heart Failure: Yes Hx Family Hypertension: Yes Hx Family Stroke: No Hx Family Diabetes: Yes Hx Family Seizures: No Hx Family Dementia: No Hx Family AIDS: No Hx Family HIV: No Hx Family COPD: No Hx Family Hepatitis: No Hx Family Psychiatric Problems: No Hx Family Tuberculosis: No ED Physical Exam - Physical Examination General/Constitutional: Awake, Well-developed, well-nourished, Alert, No distress, GCS 15, Non-toxic appearing, Ambulatory Head: Atraumatic Eyes: Lids, conjuctiva normal, PERRL, EOMI Skin: Nl inspection, No rash, No skin lesions, No ecchymosis, Well hydrated, No lymphadenopathy ENMT: External ears, nose nl, TM canals nl, Nasal exam nl, Lips, teeth, gums nl , Oropharynx nl, Tonsils nl Neck: Nontender, Full ROM w/o pain, No JVD, No nuchal rigidity, No bruit, No mass, No stridor Respiratory: Nl effort/Exclusion, Clear to Auscultation, No Wheeze/Rhonchi/Rales Cardio Vascular: RRR, No murmur, gallop, rubs, NL S1 S2, Carotid/Femoral/Distal pulses equal bilaterally GI: No tenderness/rebounding/guarding, No organomegaly, No hernia, Normal BS's, Nondistended, No mass/bruits, No McBurney tenderness Other GI comments:: no pulsatile masses : No CVA tenderness Extremities: No tenderness or effusion, Full ROM, normal strength in all extremities, No edema, Normal digits & nails Neuro/Psych: Alert/oriented, DTR's symmetric, Normal sensory exam, Normal motor strength, Judgement/insight normal, Mood normal, Normal gait, No focal deficits Misc: Normal back, No paraspinal tenderness ED Labs/Radiology/EKG Results - Lab Results Comments:: Reviewed - EKG Interpretations EKG Time:: 23:33 Rate & Rhythm: 93; NSR Comments:: non-specific st-t changes ED Septic Shock - . Is Septic Shock (SBP<90, OR Lactate>4 mmol\L) present?: No - <6hrs of presentation: Vital Signs: Vital Signs - 8 hr 01/11/18 23:25 Temp 97.1 F HR 94 RR 18 BP 115/61 O2 Sat % 93 ED Reassessment (Disposition) - Reassessment Reassessment Condition:: Improved - Diagnosis Diagnosis:: Dx; Dysuria; Fever; N/V/D; AGE; Gastritis; ESRD; HTN; DM; UTI; Sepsis - Aftercare/Follow up Instructions Aftercare/Follow-Up Instructions:: Counseled pt regarding lab results/diagnosis & need follow up, Counseled pt & family regarding lab results/diagnosis & need follow up - Patient Disposition Discharge/Transfer:: Acute Care w/in this hosp Accepting Physician:: Dr. Pride Time Called:: 29 Time Responded:: 00:30 Admitted to:: Med/Surg Spoke to:: Dr. Pride Admitting Medical Physician:: Dr. Pride Condition at Disposition:: Stable, Improved
[2018-01-12 00:15] LABS: % BASOPHILS 0.5 % (0.0-2.0); % EOSINOPHILS 1.9 % (0.0-5.0); % LYMPHOCYTES 22.5 % (20.0-50.0); % MONOCYTES 8.5 % (2.0-10.0); % NEUTROPHILS 66.6 % (40.0-80.0); EOSINOPHILE ABSOLUTE 0.1 Th/cmm (0.1-0.4); HEMATOCRIT 39.5 % (41.0-60); HEMOGLOBIN 12.6 gm/dL (12-16); LYMPHOCYTE ABSOLUTE 1.6 Th/cmm (1.5-3.0); MEAN CELL VOLUME 95.9 fl (81-100); MEAN CORPUSCULAR HEMOGLOBIN 30.7 pg (27.0-31.0); MEAN PLATELET VOLUME 8.6 fl; MONOCYTE ABSOLUTE 0.6 Th/cmm (0.3-1.0); NEUTROPHILE ABSOLUTE 4.6 Th/cmm (1.8-8.0); PLATELET COUNT 143 Th/cmm (150-400); RED BLOOD COUNT 4.12 Mil/cmm (3.80-5.10); RED CELL DISTRIBUTION WIDTH 16.6 % (11.5-20.0); WHITE BLOOD COUNT 6.9 Th/cmm (4.8-10.8)
[2018-01-12 00:23] LABS: INR 1.15 (0.5-1.4); PROTHROMBIN TIME (TEST) 11.9 SECONDS (9.5-11.5)
[2018-01-12 00:26] LABS: ALB/GLOB RATIO 0.9 (1.0-1.8); ALBUMIN 3.2 gm/dL (3.7-5.3); ANION GAP 14.3 (7.0-16.0); BILIRUBIN,TOTAL 0.9 mg/dL (0.3-1.0); CALCIUM SERUM 9.3 mg/dL (8.6-10.3); CARBON DIOXIDE 29.3 mEq/L (21.0-31.0); GFR NON AFRICAN-AMERICAN 12.4 ml/min; POTASSIUM SERUM 3.6 mEq/L (3.5-5.1); TOTAL PROTEIN,SERUM 6.8 gm/dL (6.0-8.3); TROP I 0.05 ng/mL (0.01-0.05)
[2018-01-12] MEDS ORDERED: Morphine Sulfate 2 mg/mL 1mL Syr IV STA (00:33)
[2018-01-12] MEDS ORDERED: Morphine Sulfate 2 mg/mL 1mL Syr ONE (00:37)
[2018-01-12 01:02] LABS: URINE SOURCE MIDSTREAM
[2018-01-12 01:03] LABS: URINE BILIRUBIN SMALL (NEGATIVE); URINE BLOOD LARGE (NEGATIVE); URINE GLUCOSE (UA) 100 mg/dL (NEGATIVE); URINE KETONE NEGATIVE (NEGATIVE); URINE LEUKOCYTE ESTERASE SMALL (NEGATIVE); URINE MICROSCOPIC INDICATED? YES; URINE NITRATE POSITIVE (NEGATIVE); URINE PROTEIN >=300 mg/dL (NEGATIVE); URINE UROBILINOGEN 0.2 E.U./dL (0.2 - 1.0)
[2018-01-12 01:20] LABS: URINE CLARITY HAZY (CLEAR); URINE COLOR YELLOW
[2018-01-12 01:26] LABS: URINE RBC 25-50 /hpf (0-5)
[2018-01-12 01:27] LABS: URINE BACTERIA MANY /hpf (NONE SEEN); URINE EPITHELIAL CELLS MODERATE /lpf (FEW); URINE WBC >100 /hpf (0-5)
[2018-01-12] MEDS ORDERED: cefTRIAXone 1 GM in Sodium Chloride 0.9% 50 ML IV ONE (01:29)
[2018-01-12 02:54] VITALS: BP 130/63
[2018-01-12 08:29] LABS: % BASOPHILS 0.3 % (0.0-2.0); % EOSINOPHILS 2.9 % (0.0-5.0); % LYMPHOCYTES 25.3 % (20.0-50.0); % MONOCYTES 9.8 % (2.0-10.0); % NEUTROPHILS 61.7 % (40.0-80.0); EOSINOPHILE ABSOLUTE 0.2 Th/cmm (0.1-0.4); HEMATOCRIT 37.4 % (41.0-60); HEMOGLOBIN 12.4 gm/dL (12-16); LYMPHOCYTE ABSOLUTE 1.5 Th/cmm (1.5-3.0); MEAN CELL VOLUME 95.6 fl (81-100); MEAN CORPUSCULAR HEMOGLOBIN 31.8 pg (27.0-31.0); MEAN CORPUSCULAR HGB CONC 33.2 pg (28.0-36.0); MEAN PLATELET VOLUME 8.7 fl; MONOCYTE ABSOLUTE 0.6 Th/cmm (0.3-1.0); NEUTROPHILE ABSOLUTE 3.5 Th/cmm (1.8-8.0); PLATELET COUNT 140 Th/cmm (150-400); RED BLOOD COUNT 3.91 Mil/cmm (3.80-5.10); WHITE BLOOD COUNT 5.8 Th/cmm (4.8-10.8)
[2018-01-12 08:43] LABS: ANION GAP 14.8 (7.0-16.0); CALCIUM SERUM 9.2 mg/dL (8.6-10.3); CARBON DIOXIDE 30.8 mEq/L (21.0-31.0); GFR AFRICAN-AMERICAN 13.8 ml/min (>90); GFR NON AFRICAN-AMERICAN 11.4 ml/min; POTASSIUM SERUM 3.6 mEq/L (3.5-5.1)
[2018-01-12] MEDS: INSULIN ASPART SLIDING SCALE 100 UNITS/ML UNIT SUBQ SCH ×4 (08:45→21:21)
[2018-01-12] MEDS: Morphine Sulfate 4 mg/mL 1mL Syr IVP PRN ×2 (08:52→21:30)
[2018-01-12 09:00] LABS: CREATININE - SERUM 4.3 mg/dL (0.6-1.2)
[2018-01-13] MEDS ORDERED: Albuterol Nebulizer 2.5mg/3mL HHN PRN (00:22)
[2018-01-13] MEDS ORDERED: Hydrocodone/APAP 5mg/325mg Tab PO PRN (00:22)
--- NOTE | 2018-01-13 01:10 | History & Physical ---
ADMIT DATE: 01/12/2018 CHIEF COMPLAINT: Severe pain in the shoulders and the knees as well as fever, and painful urination, etc. HISTORY OF PRESENT ILLNESS: The patient is a 52-year-old female admitted from the Emergency Room due to severe dysuria with severe urinary tract infection and a fever in the half-way. The patient's UA revealed positive nitrites, positive leukocyte esterase and more than 100 WBC and many bacteria. She has end-stage renal disease and has been on hemodialysis for the past year. Her creatinine is 4.0 in the Emergency Room. Nephrology consultation with Dr. Kc was requested and the goals are appreciated. The patient has a history of diabetes, hypertension and chronic pain syndrome due to previous surgeries and degenerative joint disease, degenerative disk disease. She called me the day prior, stating she was not feeling well and that she really needs to come to the hospital. PAST MEDICAL HISTORY: Diabetes, hypertension, anemia, end-stage renal disease on hemodialysis from the past year. PAST SURGICAL HISTORY: Multiple surgeries in the left lower extremity, dialysis access placement. MEDICATIONS: See medication reconciliation list. ALLERGIES: No known drug allergy. FAMILY HISTORY: Noncontributory. SOCIAL HISTORY: The patient smoked before, quit years ago. No history of alcohol or IV drug. REVIEW OF SYSTEMS: As per HPI. PHYSICAL EXAMINATION: GENERAL: Well-developed, thin female, in no acute distress. SKIN: Warm and dry. VITAL SIGNS: Basically stable. HEENT: Normocephalic, atraumatic. Pupils equal, round, react to light and accommodation. CHEST: Symmetrical. LUNGS: Few wheezing appreciated. CARDIAC: Normal sinus rhythm. S1, S2. ABDOMEN: Benign, soft, nontender. EXTREMITIES: No clubbing, cyanosis, edema. Bilateral hip. NEUROLOGICAL: Unremarkable. LABORATORY DATA: Reviewed. ASSESSMENT AND PLAN: 1. Severe urinary tract infection: Urine culture and blood culture ordered. Empiric antibiotics started, which will be adjusted accordingly. 2. Fever in the half-way: This has improved. 3. End-stage renal disease, on hemodialysis: Consultation with Nephrology's request and goals were appreciated. 4. Chronic pain syndrome: Multifactorial, which is medication as needed. 5. Diabetes: Sliding scale insulin low dose. 6. Difficulty walking: Fall precaution be absent. 7. DVT prophylaxis. JOB# [id number]
--- NOTE | 2018-01-13 03:00 | Consultation ---
DATE OF CONSULTATION: 01/12/2018 ATTENDING PHYSICIAN: Dr. Pride. PROCEDURE RN: Dr. Daniel Kc. REASON FOR CONSULTATION: Electrolyte imbalance and fluid management. HISTORY OF PRESENT ILLNESS: This is a 52-year-old female with past medical history of end-stage renal disease on hemodialysis, who was brought in because of dysuria. Three days prior to admission, the patient developed dysuria. She stated that she gave a urine sample at that time. Two days prior to admission, she noted blood in her urine. A few hours prior to admission, she continued to have dysuria. Thus, she was brought to the Emergency Room. Her urinalysis revealed a complicated UTI. White count was 5.8 and she was afebrile with a temperature of 96.7 degrees. She denied any fever or chills, abdominal pain, but she felt nauseous. PAST MEDICAL HISTORY: 1. End-stage renal disease on hemodialysis. 2. Essential hypertension with CKD. 3. Type 2 diabetes mellitus with CKD. 4. Asthma/COPD. 5. Dyslipidemia. 6. Peptic ulcer disease/GERD. PAST SURGICAL HISTORY: 1. Total abdominal hysterectomy. 2. Left femoral head resection. 3. Creation of left AV fistula. CURRENT MEDICATIONS: She is currently on ceftriaxone, aspart, Zofran. ALLERGIES: No known drug allergies. SOCIAL HISTORY: Denied any history of alcohol or tobacco use. 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 FAMILY HISTORY: Noncontributory to present illness. REVIEW OF SYSTEMS: GENERAL: She has occasional weakness. Appetite had been poor because of her nausea. No fever, no chills. HEENT: No headaches, no dizziness. CARDIORESPIRATORY: She denied any shortness of breath, chest pain, palpitations, diaphoresis, or cough. No shortness of breath. GASTROINTESTINAL: She did have some nausea; however, she did not have any vomiting, diarrhea, abdominal pain, hematochezia, or melena. She has a history of GERD/peptic ulcer disease. ENDOCRINE: She has a history of diabetes, no thyroid abnormalities. She has dyslipidemia. MUSCULOSKELETAL: Multiple joint arthralgias. GENITOURINARY: History of kidney failure on hemodialysis. She still urinates and had been complaining of dysuria with some hematuria. HEMATOLOGIC: History of anemia of chronic disease. NEUROPSYCH: No syncopal episode or seizure activity. She has some form of neuropathy. PHYSICAL EXAMINATION: GENERAL: The patient is awake, verbal, comfortable. VITAL SIGNS: Blood pressure is 140/64, pulse 72, temperature 96.4 degrees. SKIN: Good turgor, warm, no rash, no jaundice appreciated. HEENT: Head normocephalic, atraumatic. Eyes: Extraocular muscles intact. Pupils equal, round, reactive to light and accommodates. Anicteric sclerae. Pale conjunctivae. Nose, midline nasal septum. Mouth, moist mucosa, adequate dentition. NECK: Supple, no adenopathy, no thyromegaly, no bruits. Trachea palpated in the midline. CHEST AND CARDIOVASCULAR: S1, S2. No rub, murmur, nor gallop appreciated. Point of maximal impulse fifth intercostal space, left midclavicular line. No abdominal or femoral bruits appreciated. LUNGS: Equal expansion. Minimal use of accessory muscles. No supraclavicular retractions. Decreased breath sounds, but clear to auscultation without any wheeze. BREASTS: Symmetrical without any discharge. ABDOMEN: Obese, soft, positive for bowel sounds. No bruits either systolic or diastolic. EXTREMITIES: No evidence of any edema, cyanosis nor clubbing with palpable femoral, popliteal, dorsalis pedis pulses. She has a very good bruit and thrill on her left AV fistula. MUSCULOSKELETAL: No effusions present in her joints with adequate range of motion. NEUROLOGIC: Alert and oriented. Motor is 5/5. Sensory intact. LABORATORY DATA: White count 5.8, hemoglobin 12.4, hematocrit 37.4, platelets 140. Sodium 139, potassium 3.9, chloride 97, CO2 of 30, BUN 23, creatinine 4.3, glucose is 94, calcium is 9.2. IMPRESSION: 1. End-stage renal disease on hemodialysis. 2. Dysuria with hematuria secondary to ongoing complicated urinary tract infection. 3. Essential hypertension with chronic kidney disease. 4. Type 2 diabetes mellitus with chronic kidney disease. 5. Asthma/chronic obstructive pulmonary disease. 6. Dyslipidemia. 7. Peptic ulcer disease/gastroesophageal reflux disease. PLAN: 1. Hemodialysis today. 2. Follow up cultures. 3. Continue on with Rocephin. 4. Follow up electrolytes and CBC. Thank you, Dr. Pride for this consult. We will follow the patient closely with you. JOB# [id number]
[2018-01-13 06:04] LABS: % BASOPHILS 0.2 % (0.0-2.0); % EOSINOPHILS 2.9 % (0.0-5.0); % MONOCYTES 10.4 % (2.0-10.0); % NEUTROPHILS 67.5 % (40.0-80.0); EOSINOPHILE ABSOLUTE 0.2 Th/cmm (0.1-0.4); HEMOGLOBIN 12.5 gm/dL (12-16); LYMPHOCYTE ABSOLUTE 1.1 Th/cmm (1.5-3.0); MEAN CELL VOLUME 96.4 fl (81-100); MEAN CORPUSCULAR HEMOGLOBIN 31.6 pg (27.0-31.0); MEAN CORPUSCULAR HGB CONC 32.8 pg (28.0-36.0); MEAN PLATELET VOLUME 8.8 fl; MONOCYTE ABSOLUTE 0.6 Th/cmm (0.3-1.0); NEUTROPHILE ABSOLUTE 3.9 Th/cmm (1.8-8.0); PLATELET COUNT 131 Th/cmm (150-400); RED BLOOD COUNT 3.95 Mil/cmm (3.80-5.10); RED CELL DISTRIBUTION WIDTH 16.8 % (11.5-20.0); WHITE BLOOD COUNT 5.8 Th/cmm (4.8-10.8)
[2018-01-13 06:14] LABS: ALB/GLOB RATIO 0.9 (1.0-1.8); ANION GAP 13.1 (7.0-16.0); BILIRUBIN,TOTAL 0.8 mg/dL (0.3-1.0); CALCIUM SERUM 8.8 mg/dL (8.6-10.3); CARBON DIOXIDE 31.4 mEq/L (21.0-31.0); CREATININE - SERUM 3.3 mg/dL (0.6-1.2); GFR AFRICAN-AMERICAN 18.7 ml/min (>90); GFR NON AFRICAN-AMERICAN 15.5 ml/min; MAGNESIUM 1.7 mg/dL (1.9-2.7); PHOSPHOROUS 3.5 mg/dL (2.5-5.0); POTASSIUM SERUM 3.5 mEq/L (3.5-5.1); TOTAL PROTEIN,SERUM 6.4 gm/dL (6.0-8.3)
[2018-01-13] MEDS: INSULIN ASPART SLIDING SCALE 100 UNITS/ML UNIT SUBQ SCH ×4 (06:55→20:27)
[2018-01-13] MEDS ORDERED: Pantoprazole 40 mg EC Tab PO SCH (07:30)
[2018-01-13] MEDS: Ferrous Sulfate 325 MG TAB PO SCH ×2 (08:30→13:12)
[2018-01-13] MEDS: Morphine Sulfate 4 mg/mL 1mL Syr IVP PRN ×2 (08:41→15:53)
[2018-01-13] MEDS ORDERED: Multivitamin Tab PO SCH (09:00)
[2018-01-13] MEDS ORDERED: Probiotic Screen MC PRN (11:39)
--- NOTE | 2018-01-13 13:15 | General Progress Note ---
Subjective - Review of Systems Service Date: 01/13/18 Subjective: alert, wants to go home because wants to attend weddding Objective - Results Result Diagrams: 01/13/18 05:39 01/13/18 05:39 Recent Labs: Laboratory Last Values WBC 5.8 Th/cmm (4.8-10.8) 01/13/18 05:39 RBC 3.95 Mil/cmm (3.80-5.10) 01/13/18 05:39 Hgb 12.5 gm/dL (12-16) 01/13/18 05:39 Hct 38.0 % (41.0-60) L 01/13/18 05:39 MCV 96.4 fl (81-100) 01/13/18 05:39 MCH 31.6 pg (27.0-31.0) H 01/13/18 05:39 MCHC Differential 32.8 pg (28.0-36.0) 01/13/18 05:39 RDW 16.8 % (11.5-20.0) 01/13/18 05:39 Plt Count 131 Th/cmm (150-400) L 01/13/18 05:39 MPV 8.8 fl 01/13/18 05:39 Neutrophils % 67.5 % (40.0-80.0) 01/13/18 05:39 Lymphocytes % 19.0 % (20.0-50.0) L 01/13/18 05:39 Monocytes % 10.4 % (2.0-10.0) H 01/13/18 05:39 Eosinophils % 2.9 % (0.0-5.0) 01/13/18 05:39 Basophils % 0.2 % (0.0-2.0) 01/13/18 05:39 PT 11.9 SECONDS (9.5-11.5) H 01/11/18 00:00 INR 1.15 (0.5-1.4) 01/11/18 00:00 PTT (Actin FS) 25.7 SECONDS (26.0-38.0) L 01/11/18 00:00 Sodium 139 mEq/L (136-145) 01/13/18 05:39 Potassium 3.5 mEq/L (3.5-5.1) 01/13/18 05:39 Chloride 98 mEq/L (98-107) 01/13/18 05:39 Carbon Dioxide 31.4 mEq/L (21.0-31.0) H 01/13/18 05:39 Anion Gap 13.1 (7.0-16.0) 01/13/18 05:39 BUN 14 mg/dL (7-25) 01/13/18 05:39 Creatinine 3.3 mg/dL (0.6-1.2) H 01/13/18 05:39 Est GFR ( Amer) 18.7 ml/min (>90) 01/13/18 05:39 Est GFR (Non-Af Amer) 15.5 ml/min 01/13/18 05:39 BUN/Creatinine Ratio 4.2 01/13/18 05:39 Glucose 97 mg/dL (70-105) 01/13/18 05:39 POC Glucose 142 MG/DL (70 - 105) H 01/13/18 11:33 Whole Bld Lactic Acid 1.36 mmol/L (0.60-1.99) 01/11/18 00:00 Calcium 8.8 mg/dL (8.6-10.3) 01/13/18 05:39 Phosphorus 3.5 mg/dL (2.5-5.0) 01/13/18 05:39 Magnesium 1.7 mg/dL (1.9-2.7) L 01/13/18 05:39 Total Bilirubin 0.8 mg/dL (0.3-1.0) 01/13/18 05:39 AST 15 U/L (13-39) 01/13/18 05:39 ALT 7 U/L (7-52) 01/13/18 05:39 Alkaline Phosphatase 77 U/L (34-104) 01/13/18 05:39 Creatine Kinase 46 U/L (30-223) 01/11/18 00:00 Troponin I 0.05 ng/mL (0.01-0.05) 01/11/18 00:00 Total Protein 6.4 gm/dL (6.0-8.3) 01/13/18 05:39 Albumin 3.0 gm/dL (3.7-5.3) L 01/13/18 05:39 Globulin 3.4 gm/dL 01/13/18 05:39 Albumin/Globulin Ratio 0.9 (1.0-1.8) L 01/13/18 05:39 Serum , Qual NEGATIVE (NEGATIVE) 01/12/18 00:00 Urine Source MIDSTREAM 01/11/18 23:35 Urine Color YELLOW 01/11/18 23:35 Urine Clarity HAZY (CLEAR) 01/11/18 23:35 Urine pH 7.0 (4.6 - 8.0) 01/11/18 23:35 Ur Specific Clive 1.015 (1.005-1.030) 01/11/18 23:35 Urine Protein >=300 mg/dL (NEGATIVE) 01/11/18 23:35 Urine Glucose (UA) 100 mg/dL (NEGATIVE) H 01/11/18 23:35 Urine Ketones NEGATIVE mg/dL (NEGATIVE) 01/11/18 23:35 Urine Blood LARGE (NEGATIVE) H 01/11/18 23:35 Urine Nitrate POSITIVE (NEGATIVE) H 01/11/18 23:35 Urine Bilirubin SMALL (NEGATIVE) H 01/11/18 23:35 Urine Urobilinogen 0.2 E.U./dL (0.2 - 1.0) 01/11/18 23:35 Ur Leukocyte Esterase SMALL (NEGATIVE) H 01/11/18 23:35 Urine RBC 25-50 /hpf (0-5) H 01/11/18 23:35 Urine WBC >100 /hpf (0-5) H 01/11/18 23:35 Ur Epithelial Cells MODERATE /lpf (FEW) 01/11/18 23:35 Urine Bacteria MANY /hpf (NONE SEEN) H 01/11/18 23:35 - Physical Exam Vitals and I&O: Vital Signs Temp 97.4 F 01/13/18 12:00 Pulse 90 01/13/18 12:00 Resp 18 01/13/18 12:00 BP 126/57 01/13/18 12:00 Pulse Ox 93 01/13/18 12:00 Intake & Output 01/12/18 01/13/18 01/13/18 18:59 06:59 18:59 Intake Total 550 300 Balance 550 300 Weight (lbs) 103.147 kg 101.179 kg Intake: Intake, IV Amount 50 cefTRIAXone 0.5 gm In 50 Sodium Chloride 0.9% 50 ml @ 100 mls/hr IV Q24HR [facility] Rx#:[id number] Oral 500 300 Other: # Voids 2 2 # Bowel Movements 0 Stool Characteristics Formed Formed Weight Source Bedscale Bedscale Active Medications: Current Medications Acetaminophen (Tylenol) 650 mg PO Q6HR PRN PRN Reason: Pain or Fever >101 Stop: 03/14/18 00:21 Acetaminophen/Hydrocodone Bitart (Sterling 5mg/325mg) 1 tab PO Q6H PRN PRN Reason: Pain (Moderate) Stop: 03/14/18 00:21 Albuterol Sulfate (Albuterol 2.5mg/3ml Neb Ud) 2.5 mg HHN TIDRT PRN PRN Reason: Shortness of Breath Stop: 03/14/18 00:21 Amlodipine Besylate (Norvasc) 10 mg PO HS [facility] Stop: 03/14/18 20:59 Bisacodyl (Dulcolax 10 Mg Supp) 10 mg RC DAILY PRN PRN Reason: Constipation Stop: 03/14/18 00:21 Ferrous Sulfate (Iron) 325 mg PO TID [facility] Stop: 03/14/18 08:59 Last Admin: 01/13/18 08:30 Dose: 325 mg Glipizide (Glucotrol) 2.5 mg PO QAM [facility] Stop: 03/14/18 08:59 Last Admin: 01/13/18 08:31 Dose: 2.5 mg Ceftriaxone Sodium 0.5 gm/ (Sodium Chloride) 50 mls @ 100 mls/hr IV Q24HR [facility] Stop: 03/13/18 08:59 Last Admin: 01/13/18 08:29 Dose: 100 mls/hr Insulin Aspart (Novolog Insulin Sliding Scale) 0 units SUBQ ACHS [facility]; Protocol Stop: 03/14/18 07:29 Last Admin: 01/13/18 11:55 Dose: Not Given Insulin Detemir (Levemir Insulin) 10 units SUBQ HS [facility]; Protocol Stop: 03/14/18 20:59 Lactobacillus Rhamnosus (Culturelle 15b) 1 each PO DAILY [facility] Stop: 03/15/18 08:59 Miscellaneous (Clinical Monitoring) 1 ea MC DAILY PRN PRN Reason: RENAL Stop: 03/13/18 09:06 Miscellaneous (Probiotic Screen) 1 ea MC PRN PRN PRN Reason: PROTOCOL Stop: 03/14/18 11:38 Morphine Sulfate (Morphine) 4 mg IVP Q4H PRN PRN Reason: Pain (Severe) Stop: 03/13/18 06:18 Last Admin: 01/13/18 08:41 Dose: 4 mg Multivitamins/Vitamin C (Theragran) 1 tab PO DAILY [facility] Stop: 03/14/18 08:59 Last Admin: 01/13/18 08:31 Dose: 1 tab Ondansetron HCl (Zofran) 4 mg IV Q4H PRN PRN Reason: Nausea / Vomiting Stop: 03/13/18 06:19 Last Admin: 01/12/18 12:20 Dose: 4 mg Pantoprazole Sodium (Protonix) 40 mg PO QDAC [facility] Stop: 03/14/18 07:29 Last Admin: 01/13/18 06:48 Dose: 40 mg Pramipexole Dihydrochloride (Mirapex) 0.25 mg PO BID [facility]; Protocol Stop: 03/14/18 08:59 Last Admin: 01/13/18 08:30 Dose: Not Given Senna (Senna) 8.6 mg PO DAILY PRN PRN Reason: Constipation Stop: 03/14/18 00:21 Sevelamer Carbonate (Renvela) 2,400 mg PO TIDWM [facility] Stop: 03/14/18 07:59 Last Admin: 01/13/18 08:30 Dose: 2,400 mg General: Alert, No acute distress HEENT: Atraumatic, EOMI, Mucous membr. moist/pink Neck: Supple, +2 carotid pulse wo bruit Cardiovascular: Regular rate, Normal S1, Normal S2 Lungs: Clear to auscultation Abdomen: Bowel sounds, Soft Extremities: no Edema Neurological: Sensation intact Skin: no Rash Psych/Mental Status: Mood NL - Procedures Procedures: Procedures Procedure Code Date PERFORMANCE OF URINARY FILTRATION, <6 HRS/DAY [id number] 08/24/17 Assessment/Plan - Assessment Assessment: ESRD on HD Dysuria w/ Hematuria 2/2 Cx UTI Ess Htn w/ CKD T2DM w/ CKD Dyslipidemia - Plan Plan: Lab - Result Diagrams 01/13/18 05:39 01/13/18 05:39 Current Medications Acetaminophen (Tylenol) 650 mg PO Q6HR PRN PRN Reason: Pain or Fever >101 Stop: 03/14/18 00:21 Acetaminophen/Hydrocodone Bitart (Sterling 5mg/325mg) 1 tab PO Q6H PRN PRN Reason: Pain (Moderate) Stop: 03/14/18 00:21 Albuterol Sulfate (Albuterol 2.5mg/3ml Neb Ud) 2.5 mg HHN TIDRT PRN PRN Reason: Shortness of Breath Stop: 03/14/18 00:21 Amlodipine Besylate (Norvasc) 10 mg PO HS [facility] Stop: 03/14/18 20:59 Bisacodyl (Dulcolax 10 Mg Supp) 10 mg RC DAILY PRN PRN Reason: Constipation Stop: 03/14/18 00:21 Ferrous Sulfate (Iron) 325 mg PO TID [facility] Stop: 03/14/18 08:59 Last Admin: 01/13/18 08:30 Dose: 325 mg Glipizide (Glucotrol) 2.5 mg PO QAM [facility] Stop: 03/14/18 08:59 Last Admin: 01/13/18 08:31 Dose: 2.5 mg Ceftriaxone Sodium 0.5 gm/ (Sodium Chloride) 50 mls @ 100 mls/hr IV Q24HR [facility] Stop: 03/13/18 08:59 Last Admin: 01/13/18 08:29 Dose: 100 mls/hr Insulin Aspart (Novolog Insulin Sliding Scale) [address] [facility]; Protocol Stop: 03/14/18 07:29 Last Admin: 01/13/18 11:55 Dose: Not Given Insulin Detemir (Levemir Insulin) 10 units SUBQ [facility]; Protocol Stop: 03/14/18 20:59 Lactobacillus Rhamnosus (Culturelle 15b) 1 each PO DAILY [facility] Stop: 03/15/18 08:59 Miscellaneous (Clinical Monitoring) 1 ea MC DAILY PRN PRN Reason: RENAL Stop: 03/13/18 09:06 Miscellaneous (Probiotic Screen) 1 ea MC PRN PRN PRN Reason: PROTOCOL Stop: 03/14/18 11:38 Morphine Sulfate (Morphine) 4 mg IVP Q4H PRN PRN Reason: Pain (Severe) Stop: 03/13/18 06:18 Last Admin: 01/13/18 08:41 Dose: 4 mg Multivitamins/Vitamin C (Theragran) 1 tab PO DAILY [facility] Stop: 03/14/18 08:59 Last Admin: 01/13/18 08:31 Dose: 1 tab Ondansetron HCl (Zofran) 4 mg IV Q4H PRN PRN Reason: Nausea / Vomiting Stop: 03/13/18 06:19 Last Admin: 01/12/18 12:20 Dose: 4 mg Pantoprazole Sodium (Protonix) 40 mg PO QDAC [facility] Stop: 03/14/18 07:29 Last Admin: 01/13/18 06:48 Dose: 40 mg Pramipexole Dihydrochloride (Mirapex) 0.25 mg PO BID [facility]; Protocol Stop: 03/14/18 08:59 Last Admin: 01/13/18 08:30 Dose: Not Given Senna (Senna) 8.6 mg PO DAILY PRN PRN Reason: Constipation Stop: 03/14/18 00:21 Sevelamer Carbonate (Renvela) 2,400 mg PO TIDWM [facility] Stop: 03/14/18 07:59 Last Admin: 01/13/18 08:30 Dose: 2,400 mg Lab - Result Diagrams 01/13/18 05:39 01/13/18 05:39 schedule for HD in am continue ABx f/u urine C/S
[2018-01-13] MEDS ORDERED: Mag Sulfate 2gm/50mL Premix 2 GM/50 ML BAG IV ONE (13:55)
[2018-01-13] MEDS ORDERED: Insulin Detemir 100 units/mL 10mL Vial SUBQ SCH (21:00)
--- NOTE | 2018-01-14 03:32 | Discharge Summary ---
DATE OF DISCHARGE: 01/13/2018 FINAL DIAGNOSES: 1. Gram-negative iesha urinary tract infection: Still pending final culture results. 2. End-stage renal disease, received hemodialysis. 3. Chronic pain syndrome, improving. 4. Fever, resolved. 5. Diabetes, sliding scale insulin low dose. 6. Difficulty walking. HOSPITAL COURSE: The patient is a 52-year-old female admitted due to fever in a halfway with severe urinary tract infection with positive nitrites, positive leukocyte esterase, more than 100 wbc's. The patient has end-stage renal disease on hemodialysis and she did receive one after admission. The patient's condition improved and she received IVPB antibiotics, but still final urine culture is not available yet. Due to some reason, the patient not really wants to be discharged today. DISCHARGE CONDITION: Stable. DISPOSITION: [facility]. DISCHARGE MEDICATIONS: Continue medication from here. DIET: 1800 ADA cardiac, renal diet. ACTIVITY: Bed rest with physical therapy. FOLLOWUP: One week. JOB# [id number]
[2018-01-14] MEDS ORDERED: Lactobacillus Rhamnosus GG 15 Billion CFU CAP.SPRINK PO SCH (09:00)
== END 2018-01-13 20:35 | DRG 871 ==
LOC: ER 23:15 → MSI 01-12 01:30
PROVIDERS: ADMIT Internal Medicine; ATTEND Internal Medicine
DX: A41.9 Sepsis, unspecified organism (principal); N18.6 End stage renal disease; N39.0 Urinary tract infection, site not specified; I12.0 Hypertensive chronic kidney disease with stage 5 chronic kidney disease or end stage renal disease; Z99.2 Dependence on renal dialysis; G89.4 Chronic pain syndrome; R31.9 Hematuria, unspecified; J44.9 Chronic obstructive pulmonary disease, unspecified; E78.5 Hyperlipidemia, unspecified; E11.22 Type 2 diabetes mellitus with diabetic chronic kidney disease; K21.9 Gastro-esophageal reflux disease without esophagitis; K29.70 Gastritis, unspecified, without bleeding; K52.9 Noninfective gastroenteritis and colitis, unspecified; B96.89 Other specified bacterial agents as the cause of diseases classified elsewhere; Z87.891 Personal history of nicotine dependence; Z83.3 Family history of diabetes mellitus; Z90.710 Acquired absence of both cervix and uterus; Z82.49 Family history of ischemic heart disease and other diseases of the circulatory system
CPT/HCPCS: 36415-UA; 80048-TC; 80053-TC; 81001-TC; 82550-TC; 82948-90; 83605; 83735-TC; 84100-TC; 84484-TC; 84703-TC; 85025-TC; 85610-TC; 85730-TC; 87086-90; 93005; 94760; 96374; 96375; J0696; J1815; J2270; J2405; J3475; J7030; Z7610

== ENCOUNTER 2018-01-31 13:44 | Inpatient (IN) | payer MEDICARE, MEDICAID ==
[2018-01-31] MEDS ORDERED: Sodium Chloride 0.9% 1,000 ML IV ONE (14:19)
[2018-01-31] MEDS ORDERED: Morphine Sulfate 2 mg/mL 1mL Syr IVP ONE (14:19)
--- NOTE | 2018-01-31 14:25 | ED Physician Chart ---
ED Chief Complaint/HPI - Patient Information Date Seen:: 01/31/18 Time Seen:: 14:00 Chief Complaint:: Abdominal Pain History of Present Illness:: onset x 2 days of diffuse, intermittent, crampy abdominal pain; no report of trauma, H/as, S/T, neck pain, cough, C/P, SOB, A/N/V/D/C, fever, chills, or urinary s/s Allergies:: Allergies Allergy/AdvReac Type Severity Reaction Status Date / Time No Known Allergies Allergy Verified 08/24/17 20:18 Historian:: Patient, EMS Review:: Nurse's Note Reviewed, Old Chart Reviewed, EMS run form Reviewed ED Review of Systems - Review of Systems General/Constitutional: Fever, No chills, No weight loss, No weakness, No diaphoresis, No edema, No loss of appetite Skin: No skin lesions, No rash, No bruising Head: No headache, No light-headedness Eyes: No loss of vision, No pain, No diplopia ENT: No earache, No nasal drainage, No sore throat, No tinnitus Neck: No neck pain, No swelling, No thyromegaly, No stiffness, No mass noted Cardio Vascular: No chest pain, No palpitations, No PND, No orthopnea, No edema Pulmonary: No SOB, No cough, No sputum, No wheezing GI: Nausea, Vomiting, Diarrhea, Pain, No melena, No hematochezia, No constipation, No hematemesis G/U: Dysuria, No frequency, No hematuria, No nacturia [employer]: No vaginal discharge, No abnormal vaginal bleed, No contraction Musculoskeletal: No bone or joint pain, No back pain, No muscle pain Endocrine: Polyuria, Polydipsia Psychiatric: No prior psych history, No depression, No anxiety, No suicidal ideation, No homicidal ideation, No auditory hallucination, No visual hallucination Hematopoietic: No bruising, No lymphadenopathy Allergic/Immuno: No urticaria, No angioedema Neurological: No syncope, No focal symptoms, No weakness, No paresthesia, No headache, No seizure, No dizziness, No confusion, No vertigo ED Past Medical History - Past Medical History Obtainable: Yes Past Medical History: HTN, DM, Asthma/COPD, Dyslipidemia, PUD/GERD, ESRD Family History: Diabetes Melitus, HTN Social History: Non Smoker, No Alcohol, No Drug Use, Single, Care Facility Surgical History: None Psychiatricy History: None Medication: Reviewed Family Medical History - Family Member Mother History Unknown: Yes Ethnicity: Living Status: Hx Family Cancer: Yes Hx Family Coronary Artery Disease: (domt know) Hx Family Congestive Heart Failure: Yes Hx Family Hypertension: Yes Hx Family Stroke: No Hx Family Diabetes: Yes Hx Family Seizures: No Hx Family Dementia: No Hx Family AIDS: No Hx Family HIV: No Hx Family COPD: No Hx Family Hepatitis: No Hx Family Psychiatric Problems: No Hx Family Tuberculosis: No ED Physical Exam - Physical Examination General/Constitutional: Awake, Well-developed, well-nourished, Alert, No distress, GCS 15, Non-toxic appearing, Ambulatory Head: Atraumatic Eyes: Lids, conjuctiva normal, PERRL, EOMI Skin: Nl inspection, No rash, No skin lesions, No ecchymosis, Well hydrated, No lymphadenopathy ENMT: External ears, nose nl, TM canals nl, Nasal exam nl, Lips, teeth, gums nl , Oropharynx nl, Tonsils nl Neck: Nontender, Full ROM w/o pain, No JVD, No nuchal rigidity, No bruit, No mass, No stridor Respiratory: Nl effort/Exclusion, Clear to Auscultation, No Wheeze/Rhonchi/Rales Cardio Vascular: RRR, No murmur, gallop, rubs, NL S1 S2, Carotid/Femoral/Distal pulses equal bilaterally GI: No tenderness/rebounding/guarding, No organomegaly, No hernia, Normal BS's, Nondistended, No mass/bruits, No McBurney tenderness, Rectum exam nl : No CVA tenderness Extremities: No tenderness or effusion, Full ROM, normal strength in all extremities, No edema, Normal digits & nails Neuro/Psych: Alert/oriented, DTR's symmetric, Normal sensory exam, Normal motor strength, Judgement/insight normal, Mood normal, Normal gait, No focal deficits Misc: Normal back, No paraspinal tenderness ED Labs/Radiology/EKG Results - Lab Results Comments:: Reviewed - Radiology Results Comments:: NAD - EKG Interpretations EKG Time:: 15:25 Rate & Rhythm: 91; NSR Comments:: LVH; Inverted T-Waves; non-specific st-t changes ED Septic Shock - . Is Septic Shock (SBP<90, OR Lactate>4 mmol\L) present?: No ED Reassessment (Disposition) - Reassessment Reassessment Condition:: Improved - Diagnosis Diagnosis:: Abdominal Pain; Myocardial Ischemia; ESRD; CHF; Renal Failure - Aftercare/Follow up Instructions Aftercare/Follow-Up Instructions:: Counseled pt regarding lab results/diagnosis & need follow up, Counseled pt & family regarding lab results/diagnosis & need follow up - Patient Disposition Discharge/Transfer:: Acute Care w/in this hosp Accepting Physician:: Dr. Reyes Time Called:: 1629 Time Responded:: 16:30 Admitted to:: Telemetry Spoke to:: Dr. Reyes Admitting Medical Physician:: Dr. Reyes Condition at Disposition:: Stable, Improved
[2018-01-31] MEDS ORDERED: Morphine Sulfate 2 mg/mL 1mL Syr ONE (14:26)
[2018-01-31 14:31] LABS: % BASOPHILS 0.8 % (0.0-2.0); % EOSINOPHILS 1.1 % (0.0-5.0); % LYMPHOCYTES 9.4 % (20.0-50.0); % MONOCYTES 5.9 % (2.0-10.0); % NEUTROPHILS 82.8 % (40.0-80.0); BASOPHILE ABSOLUTE 0.1 Th/cumm (0-0.2); EOSINOPHILE ABSOLUTE 0.1 Th/cmm (0.1-0.4); HEMATOCRIT 37.1 % (41.0-60); HEMOGLOBIN 12.4 gm/dL (12-16); LYMPHOCYTE ABSOLUTE 0.8 Th/cmm (1.5-3.0); MEAN CELL VOLUME 96.1 fl (81-100); MEAN CORPUSCULAR HEMOGLOBIN 32.1 pg (27.0-31.0); MEAN CORPUSCULAR HGB CONC 33.4 pg (28.0-36.0); MEAN PLATELET VOLUME 8.6 fl; MONOCYTE ABSOLUTE 0.5 Th/cmm (0.3-1.0); NEUTROPHILE ABSOLUTE 7.5 Th/cmm (1.8-8.0); PLATELET COUNT 150 Th/cmm (150-400); RED BLOOD COUNT 3.86 Mil/cmm (3.80-5.10); RED CELL DISTRIBUTION WIDTH 17.5 % (11.5-20.0)
[2018-01-31 14:45] LABS: INR 1.23 (0.5-1.4); PROTHROMBIN TIME (TEST) 12.7 SECONDS (9.5-11.5)
[2018-01-31 15:51] LABS: ALB/GLOB RATIO 0.8 (1.0-1.8); ANION GAP 18.2 (7.0-16.0); BILIRUBIN,TOTAL 1.4 mg/dL (0.3-1.0); CALCIUM SERUM 9.9 mg/dL (8.6-10.3); CARBON DIOXIDE 23.9 mEq/L (21.0-31.0); GFR AFRICAN-AMERICAN 12.2 ml/min (>90); POTASSIUM SERUM 5.1 mEq/L (3.5-5.1); TOTAL PROTEIN,SERUM 6.6 gm/dL (6.0-8.3)
[2018-01-31 15:52] LABS: CREATININE - SERUM 4.8 mg/dL (0.6-1.2)
[2018-01-31] MEDS ORDERED: D5-0.45NS 1,000 ML IV SCH (19:15)
[2018-01-31] MEDS ORDERED: Levofloxacin 500mg/100mL 500 MG/100 ML BAG IV ONE (19:15)
[2018-01-31 19:51] VITALS: BP 114/64
[2018-01-31] MEDS: Morphine Sulfate 4 mg/mL 1mL Syr IV PRN (20:52)
[2018-01-31] MEDS ORDERED: Piperacillin Sodium/Tazobact 2.25 gm Vial IV ONE (22:46)
[2018-02-01] MEDS ORDERED: Piperacillin Sodium/Tazobact 2.25 gm Vial IV ONE (05:04)
[2018-02-01 05:51] LABS: % BASOPHILS 0.1 % (0.0-2.0); % EOSINOPHILS 1.6 % (0.0-5.0); % LYMPHOCYTES 13.7 % (20.0-50.0); % NEUTROPHILS 75.6 % (40.0-80.0); EOSINOPHILE ABSOLUTE 0.1 Th/cmm (0.1-0.4); HEMATOCRIT 35.8 % (41.0-60); HEMOGLOBIN 11.6 gm/dL (12-16); LYMPHOCYTE ABSOLUTE 0.7 Th/cmm (1.5-3.0); MEAN CELL VOLUME 96.6 fl (81-100); MEAN CORPUSCULAR HEMOGLOBIN 31.4 pg (27.0-31.0); MEAN CORPUSCULAR HGB CONC 32.5 pg (28.0-36.0); MEAN PLATELET VOLUME 8.8 fl; MONOCYTE ABSOLUTE 0.5 Th/cmm (0.3-1.0); NEUTROPHILE ABSOLUTE 3.7 Th/cmm (1.8-8.0); PLATELET COUNT 140 Th/cmm (150-400); RED BLOOD COUNT 3.71 Mil/cmm (3.80-5.10); RED CELL DISTRIBUTION WIDTH 17.4 % (11.5-20.0)
[2018-02-01 06:12] LABS: ANION GAP 15.2 (7.0-16.0); CALCIUM SERUM 9.2 mg/dL (8.6-10.3); CARBON DIOXIDE 25.9 mEq/L (21.0-31.0); GFR AFRICAN-AMERICAN 11.3 ml/min (>90); GFR NON AFRICAN-AMERICAN 9.4 ml/min; POTASSIUM SERUM 5.1 mEq/L (3.5-5.1)
[2018-02-01 06:17] LABS: CREATININE - SERUM 5.1 mg/dL (0.6-1.2)
[2018-02-01] MEDS: Morphine Sulfate 4 mg/mL 1mL Syr IV PRN ×2 (08:08→17:17)
--- NOTE | 2018-02-01 08:37 | Diagnostic Imaging Report ---
CHEST X-RAY: AP view INDICATION: pain COMPARISON: 08/27/2017 FINDINGS: Small right effusion is noted with right midlung atelectasis versus infiltrate. Low lung lungs are noted. Mild cardiomegaly is noted. Degenerative changes of the spine are noted. IMPRESSION: Small right pleural effusion with right mid lung atelectasis versus infiltrate. Follow-up recommended. Mild cardiomegaly.
--- NOTE | 2018-02-01 09:00 | General Progress Note ---
Subjective - Review of Systems Service Date: 02/01/18 Events since last encounter: consult dictated HIDA ordered she needs referral to a tertiary care facility for complex surgical problems including repair of incarcerated hernia and cholecystectomy Objective - Results Result Diagrams: 02/01/18 05:10 02/01/18 05:10 Recent Labs: Laboratory Last Values WBC 5.0 Th/cmm (4.8-10.8) D 02/01/18 05:10 RBC 3.71 Mil/cmm (3.80-5.10) L 02/01/18 05:10 Hgb 11.6 gm/dL (12-16) L 02/01/18 05:10 Hct 35.8 % (41.0-60) L 02/01/18 05:10 MCV 96.6 fl (81-100) 02/01/18 05:10 MCH 31.4 pg (27.0-31.0) H 02/01/18 05:10 MCHC Differential 32.5 pg (28.0-36.0) 02/01/18 05:10 RDW 17.4 % (11.5-20.0) 02/01/18 05:10 Plt Count 140 Th/cmm (150-400) L 02/01/18 05:10 MPV 8.8 fl 02/01/18 05:10 Neutrophils % 75.6 % (40.0-80.0) 02/01/18 05:10 Lymphocytes % 13.7 % (20.0-50.0) L 02/01/18 05:10 Monocytes % 9.0 % (2.0-10.0) 02/01/18 05:10 Eosinophils % 1.6 % (0.0-5.0) 02/01/18 05:10 Basophils % 0.1 % (0.0-2.0) 02/01/18 05:10 PT 12.7 SECONDS (9.5-11.5) H 01/31/18 14:10 INR 1.23 (0.5-1.4) 01/31/18 14:10 Sodium 139 mEq/L (136-145) 02/01/18 05:10 Potassium 5.1 mEq/L (3.5-5.1) 02/01/18 05:10 Chloride 103 mEq/L (98-107) 02/01/18 05:10 Carbon Dioxide 25.9 mEq/L (21.0-31.0) 02/01/18 05:10 Anion Gap 15.2 (7.0-16.0) 02/01/18 05:10 BUN 37 mg/dL (7-25) H 02/01/18 05:10 Creatinine 5.1 mg/dL (0.6-1.2) H* 02/01/18 05:10 Est GFR ( Amer) 11.3 ml/min (>90) 02/01/18 05:10 Est GFR (Non-Af Amer) 9.4 ml/min 02/01/18 05:10 BUN/Creatinine Ratio 7.3 02/01/18 05:10 Glucose 79 mg/dL (70-105) 02/01/18 05:10 Calcium 9.2 mg/dL (8.6-10.3) 02/01/18 05:10 Total Bilirubin 1.4 mg/dL (0.3-1.0) H 01/31/18 14:10 AST 18 U/L (13-39) 01/31/18 14:10 ALT 9 U/L (7-52) 01/31/18 14:10 Alkaline Phosphatase 80 U/L (34-104) 01/31/18 14:10 Creatine Kinase 33 U/L (30-223) 01/31/18 14:10 Troponin I 0.05 ng/mL (0.01-0.05) 01/31/18 14:10 B-Natriuretic Peptide > 5000.0 pg/mL (5.0-100.0) H 01/31/18 14:10 Total Protein 6.6 gm/dL (6.0-8.3) 01/31/18 14:10 Albumin 3.0 gm/dL (3.7-5.3) L 01/31/18 14:10 Globulin 3.6 gm/dL 01/31/18 14:10 Albumin/Globulin Ratio 0.8 (1.0-1.8) L 01/31/18 14:10 Triglycerides 75 mg/dL (<150) 01/31/18 14:10 Cholesterol 134 mg/dL (<200) 01/31/18 14:10 LDL Cholesterol Direct 94 mg/dL (75-193) 01/31/18 14:10 HDL Cholesterol 39 mg/dL (23-92) 01/31/18 14:10 Amylase 21 U/L (29-103) L 01/31/18 14:10 Lipase 13 U/L (11-82) 01/31/18 14:10 Serum , Qual NEGATIVE (NEGATIVE) 01/31/18 14:10 - Physical Exam Vitals and I&O: Vital Signs Temp 95.6 F 02/01/18 07:31 Pulse 90 02/01/18 07:31 Resp 18 02/01/18 07:31 BP 143/74 02/01/18 07:31 Pulse Ox 98 02/01/18 07:31 Intake & Output 01/31/18 02/01/18 02/01/18 18:59 06:59 18:59 Intake Total 150 Output Total 0 Balance 150 Weight (lbs) 104.326 kg 100.97 kg Intake: Intake, IV Amount 150 Piperacillin Sodium/ 50 Tazobact 2.25 gm In Sodium Chloride 0.9% 50 ml @ 100 mls/hr IV Q8HR [facility] Rx#:[id number] Output: Urine 0 Other: # Bowel Movements 0 Weight Source Estimated Bedscale Active Medications: Current Medications Dextrose/Sodium Chloride (D5-0.45ns) 1,000 mls @ 60 mls/hr IV .[id number] [facility] Stop: 04/01/18 19:14 Last Admin: 01/31/18 19:50 Dose: 60 mls/hr Piperacillin Sod/Tazobactam (Sod 2.25 gm/ Sodium Chloride) 50 mls @ 100 mls/hr IV Q8HR [facility] Stop: 04/01/18 20:59 Last Admin: 02/01/18 05:14 Dose: 100 mls/hr Morphine Sulfate (Morphine) 2 mg IV Q4HR PRN PRN Reason: Pain (Severe) 8-10 Stop: 04/01/18 18:29 Last Admin: 02/01/18 08:08 Dose: 2 mg Ondansetron HCl (Zofran) 4 mg IV Q4HR PRN PRN Reason: Nausea Stop: 04/01/18 18:29 Last Admin: 02/01/18 08:13 Dose: 4 mg - Procedures Procedures: Procedures Procedure Code Date PERFORMANCE OF URINARY FILTRATION, <6 HRS/DAY [id number] 08/24/17
--- NOTE | 2018-02-01 09:07 | Diagnostic Imaging Report ---
CT abdomen and pelvis without intravenous contrast Indication: Abdominal pain Comparison: None, Technique: Axial images were obtained from the lung bases to the bilateral proximal femurs without IV contrast. Coronal reconstructions were made. total DLP: 915, CTDI17.3 FINDINGS: Small right effusion is noted with right basal infiltrates and consolidative changes. Assessment of the solid organs is limited due to lack of IV contrast. No focal hepatic lesions. Gallstones are noted. No focal splenic lesions. No focal pancreatic lesions. Pancreatic gland atrophy is noted. No focal adrenal lesions. There is a large right renal cyst measuring 3.7 x 3 cm with a peripheral 3 mm calcification. There is also an additional 1.5 cm right renal cyst along the inferior pole. No hydronephrosis. There is mild bilateral renal atrophy. Air is seen within the urinary bladder. There is mild inflammatory changes surrounding the urinary bladder. There is diffuse anasarca. There is a large hernia along the right lateral abdomen located lateral to the rectus muscle right rectus muscle with herniation of small and bowel loops. There may be an additional smaller herniation within the large herniation more inferiorly best seen on (coronal image 43 through 50 series 3. ) Multiple dilated loops of small bowel are seen proximally within the abdomen suggestive of likely partial small bowel obstruction which may be due to hernia. Minimal diverticulosis is noted. No diverticulitis. Diffuse atherosclerotic vascular disease noted. Mild nonspecific inflammatory changes in the mesentery and pelvic fat planes are seen with trace presacral free fluid. Advanced degenerative changes of the spine are noted. There is nonvisualization of the left femoral head with superolateral left femoral dislocation. IMPRESSION: Very large right lateral subcutaneous hernia located lateral to the right rectus abdominis muscles containing both small and large bowel loops. There may be additional smaller within the large hernia hernia along the inferior aspect which contains multiple small bowel loops. There are dilated loops of small bowel proximally within the abdomen which may be secondary to partial small bowel obstruction secondary to patient's large hernia. Minimal diverticulosis without diverticulitis. Gallstones. Mild nonspecific inflammatory changes of the mesentery and pelvic fat planes. Trace free fluid in the pelvis Air within urinary bladder which may be due to recent instrumentation or infectious or inflammatory process. Mild inflammatory changes are also seen surrounding the urinary bladder. Right lower lobe infiltrates and small right effusion. Nonvisualization with probable resorption of the left femoral head with superolateral left femoral dislocation which is probably chronic. Right renal cyst with small calcification within the cyst. Please refer to above for details.
--- NOTE | 2018-02-01 09:15 | Consultation ---
DATE OF CONSULTATION: 02/01/2018 SURGICAL CONSULTATION REFERRING PHYSICIAN: Dr. Woody. REASON FOR CONSULTATION: Abdominal pain. Thank you for referring this patient to me. HISTORY OF PRESENT ILLNESS: This is a 52-year-old female on chronic hemodialysis treatment for the last 1 year. She claims having intermittent pain, right upper quadrant for the last several years and this episode has started 2 days ago. It is not associated with nausea and vomiting. PAST HISTORY: She had appendectomy 20 years ago and developed a hernia, which is rather large one, but apparently this gives intermittent pain, has not causing obstruction and she has not complained of pain in this area. in the right upper quadrant. She also has had a hysterectomy. LABORATORY STUDIES: CBC is normal. Chemistry: BUN is 33 with creatinine of 4.8. Liver function tests are normal. CT scan of the abdomen showed a large right lower quadrant hernia with bowel loops present. She has gallstones as well. PHYSICAL EXAMINATION: The patient is alert and awake on hemodialysis. She is extremely obese with a huge fat pad, which drapes over the lower abdomen. There is minimal tenderness in the right lower quadrant side of established hernia present for over 20 years. She has slight tenderness in the right upper quadrant. PLAN: The patient is to undergo HIDA scan. She is at very high risk for complications for any kind of surgery intraabdominally because of her excess weight and I would refer the patient to go to a tertiary care facility for this treatment. JOB# [id number]
[2018-02-01 09:23] LABS: URINE SOURCE CLEAN C
[2018-02-01 09:51] LABS: URINE BILIRUBIN SMALL (NEGATIVE); URINE BLOOD LARGE (NEGATIVE); URINE GLUCOSE (UA) NEGATIVE (NEGATIVE); URINE KETONE NEGATIVE (NEGATIVE); URINE LEUKOCYTE ESTERASE LARGE (NEGATIVE); URINE MICROSCOPIC INDICATED? YES; URINE NITRATE NEGATIVE (NEGATIVE); URINE PROTEIN >=300 mg/dL (NEGATIVE); URINE UROBILINOGEN 0.2 E.U./dL (0.2 - 1.0)
[2018-02-01 09:53] LABS: URINE CLARITY TURBID (CLEAR); URINE COLOR YELLOW
[2018-02-01 10:01] LABS: URINE BACTERIA MANY /hpf (NONE SEEN); URINE EPITHELIAL CELLS RARE /lpf (FEW); URINE WBC >100 /hpf (0-5)
--- NOTE | 2018-02-01 10:54 | Consultation ---
DATE OF CONSULTATION: 02/01/2018 INPATIENT GASTROINTESTINAL CONSULTATION CONSULTING PHYSICIAN: Dr. Pride. REASON FOR CONSULTATION: Abdominal pain. HISTORY OF PRESENT ILLNESS: The patient is a 52-year-old female with past medical history significant for COPD, GERD, type 2 diabetes, hypertension and known right-sided hernia, who comes into the hospital complaining of [id number] abdominal pain on the right side. The patient reports that she has had right-sided abdominal pain for at least 2 years and that it gets severe intermittently. She knows that she has gallstones and she thinks the gallstones as the cause of her pain, but she has never been offered a surgical opinion on whether this would be possible to remove her gallbladder. The patient is now admitted again as her pain became severe 2 days ago in intermittent manner. She reports that the pain comes and goes throughout the day, but it is not constant. She has not had any nausea and vomiting and she reports having no blood in her stool. A CT scan performed in the ER revealed a large right-sided flank hernia with a large amount of bowel, possible strangulation as well as pneumonia, a small amount of ascites, diverticulosis and gallstones. At the current time, the patient is about to have dialysis and is still reporting right-sided abdominal pain. PAST MEDICAL HISTORY: Hypertension, type 2 diabetes, COPD, hyperlipidemia, cholelithiasis, GERD. PAST SURGICAL HISTORY: Appendectomy, hysterectomy. FAMILY HISTORY: Noncontributory. SOCIAL HISTORY: The patient lives at a nursing facility. There is no documented history of alcoholism or illicit drug use. ALLERGIES: No known drug allergies. REVIEW OF SYSTEMS: A 12-point review of systems was performed with the patient and is negative other than the pertinent positives mentioned in the history of present illness. CURRENT MEDICATIONS: Include morphine, Zofran, Zosyn. PHYSICAL EXAMINATION: VITAL SIGNS: Blood pressure is 143/74, pulse 90 beats per minute, temperature 95.6, oxygenation 98%. GENERAL: The patient is lying at 30 degrees in bed, alert and oriented x 3. She appears in moderate amount of distress. HEAD, EARS, EYES, NOSE AND THROAT: Normocephalic and atraumatic appearing head. Pupils are equal and reactive to light. Extraocular muscles are intact. There is no scleral icterus. Moist mucous membranes are noted. NECK: Supple. No JVD or thyromegaly. CHEST: There are crackles at both bases. CARDIOVASCULAR: S1 and S2 are present, regular rate and rhythm. ABDOMEN: There is a large right-sided hernia with multiple bowel loops that is palpable. There is tenderness to palpation diffusely, but more on the right than the left. There is no guarding or rebound. There are surgical scars that are well healed. EXTREMITIES: There is pitting edema bilaterally. Pulses are not present. SKIN: There is no obvious jaundice. LABORATORY DATA: White blood cell count 5.0, hemoglobin 11.6, platelet count is 140. INR is 1.23. Sodium 139, BUN 37, creatinine 5.1. Total bilirubin 1.4, AST 18, ALT 9. Albumin 3.0. Lipase is 13. IMAGING STUDIES: Preliminary CT read shows a large right hernia with possible strangulation and bowel within the hernia; there is pneumonia; there is small ascites, diverticulosis and gallstones. IMPRESSION: This is a 52-year-old female with history of end-stage renal disease, on hemodialysis; gastroesophageal reflux disease, chronic obstructive pulmonary disease, hypertension, type 2 diabetes, known right-sided hernia, admitted to the hospital with [id number] abdominal pain. 1. Cholelithiasis. 2. Large right-sided abdominal hernia with multiple bowel loops. 3. Abdominal pain. 4. Pneumonia. 5. Diverticulosis. 6. End-stage renal disease, on hemodialysis. DISCUSSION: The etiology of this patient's pain could be from several factors. I suspect that her large hernia is playing a role as it has multiple bowel loops and there is some question of strangulation on the CT scan. A surgical opinion on this matter would be valuable. Additionally, she certainly could be having gallbladder related pain as there are gallstones. We can do an evaluation here with a HIDA scan as well as an ultrasound and a surgical opinion on possibility of cholecystectomy can also be valuable. The patient has never had endoscopic procedures and she does not want to have a colonoscopy or an upper endoscopy; furthermore, this may not even be possible given the patient's large hernia. RECOMMENDATIONS: 1. Agree with dialysis at this current time. 2. We will order an abdominal ultrasound as well as a HIDA scan. 3. Surgical opinion regarding the large hernia with possible strangulation and gallstone disease. 4. Pain control measures and supportive care as per primary. 5. Diet as tolerated. 6. No endoscopy is planned at the patient's request and given technical feasibility concerns. Thank you for allowing me to participate in her care. Please call with any further questions. JOB# [id number]
[2018-02-01] MEDS ORDERED: Albuterol Nebulizer 2.5mg/3mL HHN PRN (12:18)
--- NOTE | 2018-02-01 13:44 | History & Physical ---
ADMIT DATE: 01/31/2018 CHIEF COMPLAINT: Severe abdominal pain with nausea, vomiting. HISTORY OF PRESENT ILLNESS: The patient is a 52-year-old Japanese-speaking female admitted from the Emergency Room to telemetry floor of [facility] due to nausea, vomiting, and severe abdominal pain. Abdominal and pelvic CT scan done in the Emergency Room revealed very large right lateral subcutaneous hernia located lateral to the right rectus abdominis muscle continued both small and large bowel loops. There might be bowel strangulation. There is also gallstone. Post-GI and the surgical consultation will request an aggressive appreciated. Chest x-ray revealed findings suggesting right middle lobe pneumonia and a right pleural effusion. The patient also had severe urinary tract infection with UA revealed large leukocyte esterase and more than 100,000 wbc's and many bacteria. She is due for dialysis. Nephrology consultation also requested. Lab [place], the patient's white count is actually normal. Her BUN 33 and creatinine of 4.8 ____dialysis. Her BNP is elevated over 5000, but this is of unknown significance in light of the fact the patient is on dialysis. The patient's troponin is 0.05. PAST MEDICAL HISTORY: Diabetes, chronic pain syndrome, pneumonia, urinary tract infection, end-stage renal disease, on hemodialysis for the past year. PAST SURGICAL HISTORY: Left hip surgery, which rendered the patient of wheelchair bound. MEDICATIONS: See medication reconciliation list. ALLERGIES: No known drug allergy. FAMILY HISTORY: Noncontributory. SOCIAL HISTORY: The patient is , but or and she smoked before, quit years ago. No history of alcohol or IV drug use. REVIEW OF SYSTEMS: As per HPI. PHYSICAL EXAMINATION: GENERAL: Well-developed, mildly obese female in no acute distress. SKIN: Warm and dry. VITAL SIGNS: Basically stable. HEENT: Normocephalic, atraumatic. Pupils equal, round, reactive to light and accommodation. CHEST: Symmetrical. LUNGS: Few rhonchi appreciated on the right side. HEART: Normal sinus rhythm. S1, S2. ABDOMEN: Slightly distended. There is tenderness mostly on the right side. Bowel sounds positive. EXTREMITIES: No clubbing, cyanosis. There is trace edema bilaterally ____ NEUROLOGIC: Unremarkable. LABORATORY DATA: Reviewed as mentioned above. ASSESSMENT AND PLAN: 1. Severe nausea, vomiting, and abdominal pain: The patient is kept n.p.o., especially in light of the CT of abdomen and the pelvic finding of large hernia with a positive ____. IV fluid was started. The patient was kept n.p.o. Appreciate GI and surgical consultation. We will follow recommendation. 2. Severe urinary tract infection: Urine culture and blood culture ordered, empiric antibiotics started, which will be checked accordingly. 3. Probable right middle lobe pneumonia: Current sputum, blood culture ordered. We will adjust antibiotics accordingly. 4. End-stage renal disease, on hemodialysis. 5. Chronic pain syndrome ____. 6. Wheelchair bound status. 7. Deep venous thrombosis prophylaxis. JOB# [id number]
--- NOTE | 2018-02-01 13:47 | Diagnostic Imaging Report ---
Ultrasound abdomen HISTORY: Abdominal pain, assess for cirrhosis and gallbladder disease COMPARISON: CT abdomen and pelvis the same day Technique: Sonography of the abdomen was performed in multiple planes. FINDINGS: Exam is severely limited due to body habitus including nondiagnostic evaluation of the solid organs. There are echogenic foci along the gallbladder wall measuring up to 2.8 cm. Patient refused positioning in the left lateral decubitus, limited assessment of the gallbladder. The common bile duct was not visualized. The gallbladder wall measures 3 mm. Limited assessment of the kidneys demonstrates no hydronephrosis. IMPRESSION: Severely limited exam due to bowel gas and body habitus. There is suboptimal assessment of the liver. Echogenic foci along the gallbladder wall. Findings may represent gallstones. Note patient was not able to position for left lateral decubitus position, limiting assessment of the gallbladder. Borderline prominent gallbladder wall, nonspecific. The common bile duct was not visualized.
[2018-02-01] MEDS: D5-0.45NS 1,000 ML IV SCH (17:31)
[2018-02-01] MEDS: INSULIN ASPART SLIDING SCALE 100 UNITS/ML UNIT SUBQ SCH ×2 (17:32→21:37)
--- NOTE | 2018-02-01 21:10 | Consultation ---
DATE OF CONSULTATION: 02/01/2018 ATTENDING: Dr. Pride. VOCATIONAL INSTRUCTOR: Dr. Daniel Kc. REASON FOR CONSULTATION: Electrolyte imbalance and fluid management. HISTORY OF PRESENT ILLNESS: This is a 52-year-old female with past medical history of end-stage renal disease on hemodialysis, who came in because of severe right-sided abdominal pain. Two years prior to admission, the patient experienced intermittent right-sided abdominal pain at the site of her abdominal hernia. She took analgesics as needed. Two days prior to admission, she had recurrence of the right-sided abdominal pain. This was not associated with any food intake or drinking. A few hours prior to admission, she could no longer tolerate the pain. She was then brought to the Emergency Room. CT scan of the abdomen revealed large right lateral abdominal hernia with herniation containing small bowel loops and multiple dilated loops of small bowel suggestive of partial small-bowel obstruction secondary to this hernia. There were also gallbladder stones. She denied any diarrhea, but only had very minimal nausea and vomiting. PAST MEDICAL HISTORY: 1. End-stage renal disease, on hemodialysis. 2. Type 2 diabetes mellitus. 3. COPD. 4. Dyslipidemia. 5. Cholelithiasis. 6. GERD. 7. Coronary artery disease. 8. Morbid obesity. 9. Chronic right lateral abdominal hernia. PAST SURGICAL HISTORY: 1. Status post appendectomy. 2. Status post hysterectomy. 3. Status post creation of left AV fistula. CURRENT MEDICATIONS: She is currently on acetaminophen, albuterol, amlodipine, bisacodyl, docusate sodium, ketorolac, lorazepam, morphine sulfate, ondansetron, pantoprazole, sennosides, sevelamer, Zosyn. ALLERGIES: No known drug allergies. SOCIAL HISTORY: Denied any history of alcohol or tobacco use. Currently resides at an [facility] care facility. REVIEW OF SYSTEMS: CONSTITUTIONAL: She did complain of some weakness. Appetite had been poor, no fever or chills. HEENT: Occasional headaches and lightheadedness. CARDIORESPIRATORY: Denies any shortness of breath, chest pain, palpitations, diaphoresis, or cough. GASTROINTESTINAL: She did complain of right-sided abdominal pain. She had minimal nausea and vomiting, but no diarrhea, melena, or hematochezia. MUSCULOSKELETAL: Multiple joint arthralgias. GENITOURINARY: History of end-stage renal disease, now on hemodialysis. She rarely urinates if she does, denied any dysuria nor hematuria. NEURO/PSYCHIATRIC: She does not have any syncopal episode nor seizure activity. She has diabetic neuropathy. PHYSICAL EXAMINATION: GENERAL: The patient is awake, in minimal to moderate distress. VITAL SIGNS: Blood pressure 128/69, pulse 80, temperature 96.4 degrees. SKIN: Good turgor, warm. No rash, no jaundice appreciated. HEENT: Head normocephalic, atraumatic. Eyes: Extraocular muscles intact. Pupils equal, round, reactive to light and accommodates. Anicteric sclerae. Pale conjunctivae. Nose, midline nasal septum. Mouth, moist mucosa, adequate dentition. NECK: Supple, no adenopathy, no thyromegaly, no bruits. Trachea palpated in the midline. CHEST AND CARDIOVASCULAR: S1, S2. No rub, murmur, or gallop appreciated. Point of maximal impulse fifth intercostal space, but displaced to the left axillary line. No abdominal or femoral bruits appreciated. LUNGS: Equal expansion. Minimal use of accessory muscles. No supraclavicular retractions. Decreased breath sounds, few rhonchi, but no rales nor wheezes appreciated. BREASTS: Pendulous symmetrical, without any discharge. ABDOMEN: Obese, soft, positive for bowel sounds. There is some tenderness on palpation over the right side of the abdomen, but there is no rebound nor guarding. She has surgical scars in that particular area. No bruits either diastolic or systolic. RECTAL: Lax sphincter tone. GENITOURINARY: Normal appearing female genitalia. MUSCULOSKELETAL: No effusions present in her joints with adequate range of motion. EXTREMITIES: No evidence of any edema, cyanosis nor clubbing with palpable femoral, but unable to fully appreciate popliteal and dorsalis pedis pulses due to her size. NEUROLOGIC: The patient is alert, verbal, motor is 5/5. Cranial nerves 3-12 intact. Sensory intact. LABORATORY DATA: Labs did reveal white count is 5, hemoglobin 11.6, hematocrit 35.8, platelets 140. Sodium 139, potassium 5.1, chloride 103, bicarbonate 12.9, BUN 37, creatinine 5.21, calcium 9.2. IMPRESSION: 1. End-stage renal disease on hemodialysis, status post creation of left AV fistula. 2. Intermittent abdominal pain, possibly secondary to combination of presence of large right-sided abdominal hernia with strangulation and cholelithiasis. 3. Morbid obesity. 4. Type 2 diabetes mellitus. 5. Chronic obstructive pulmonary disease. 6. Dyslipidemia. 7. Cholelithiasis. 8. Gastroesophageal reflux disease. 9. Coronary artery disease. 10. Morbid obesity. 11. Chronic right lateral abdominal hernia. PLAN: 1. Hemodialysis as scheduled. 2. GI consult. 3. Surgical consult. 4. Agree with HIDA scan. 5. Follow up electrolytes. Thank you, Dr. Pride for this consult. We will follow the patient closely with you. JOB# [id number]
[2018-02-02] MEDS: Morphine Sulfate 4 mg/mL 1mL Syr IV PRN ×4 (04:13→20:18)
[2018-02-02] MEDS: INSULIN ASPART SLIDING SCALE 100 UNITS/ML UNIT SUBQ SCH ×4 (06:39→20:12)
--- NOTE | 2018-02-02 07:59 | GI Progress Note ---
Subjective - Review of Systems Service Date: 02/02/18 Subjective: Still reporting constant right sided abdominal pain. No vomiting Objective - Results Result Diagrams: 02/01/18 05:10 02/01/18 05:10 Recent Labs: Laboratory Last Values WBC 5.0 Th/cmm (4.8-10.8) D 02/01/18 05:10 RBC 3.71 Mil/cmm (3.80-5.10) L 02/01/18 05:10 Hgb 11.6 gm/dL (12-16) L 02/01/18 05:10 Hct 35.8 % (41.0-60) L 02/01/18 05:10 MCV 96.6 fl (81-100) 02/01/18 05:10 MCH 31.4 pg (27.0-31.0) H 02/01/18 05:10 MCHC Differential 32.5 pg (28.0-36.0) 02/01/18 05:10 RDW 17.4 % (11.5-20.0) 02/01/18 05:10 Plt Count 140 Th/cmm (150-400) L 02/01/18 05:10 MPV 8.8 fl 02/01/18 05:10 Neutrophils % 75.6 % (40.0-80.0) 02/01/18 05:10 Lymphocytes % 13.7 % (20.0-50.0) L 02/01/18 05:10 Monocytes % 9.0 % (2.0-10.0) 02/01/18 05:10 Eosinophils % 1.6 % (0.0-5.0) 02/01/18 05:10 Basophils % 0.1 % (0.0-2.0) 02/01/18 05:10 PT 12.7 SECONDS (9.5-11.5) H 01/31/18 14:10 INR 1.23 (0.5-1.4) 01/31/18 14:10 Sodium 139 mEq/L (136-145) 02/01/18 05:10 Potassium 5.1 mEq/L (3.5-5.1) 02/01/18 05:10 Chloride 103 mEq/L (98-107) 02/01/18 05:10 Carbon Dioxide 25.9 mEq/L (21.0-31.0) 02/01/18 05:10 Anion Gap 15.2 (7.0-16.0) 02/01/18 05:10 BUN 37 mg/dL (7-25) H 02/01/18 05:10 Creatinine 5.1 mg/dL (0.6-1.2) H* 02/01/18 05:10 Est GFR ( Amer) 11.3 ml/min (>90) 02/01/18 05:10 Est GFR (Non-Af Amer) 9.4 ml/min 02/01/18 05:10 BUN/Creatinine Ratio 7.3 02/01/18 05:10 Glucose 79 mg/dL (70-105) 02/01/18 05:10 POC Glucose 74 MG/DL (70 - 105) 02/02/18 05:42 Calcium 9.2 mg/dL (8.6-10.3) 02/01/18 05:10 Total Bilirubin 1.4 mg/dL (0.3-1.0) H 01/31/18 14:10 AST 18 U/L (13-39) 01/31/18 14:10 ALT 9 U/L (7-52) 01/31/18 14:10 Alkaline Phosphatase 80 U/L (34-104) 01/31/18 14:10 Creatine Kinase 33 U/L (30-223) 01/31/18 14:10 Troponin I 0.05 ng/mL (0.01-0.05) 01/31/18 14:10 B-Natriuretic Peptide > 5000.0 pg/mL (5.0-100.0) H 01/31/18 14:10 Total Protein 6.6 gm/dL (6.0-8.3) 01/31/18 14:10 Albumin 3.0 gm/dL (3.7-5.3) L 01/31/18 14:10 Globulin 3.6 gm/dL 01/31/18 14:10 Albumin/Globulin Ratio 0.8 (1.0-1.8) L 01/31/18 14:10 Triglycerides 75 mg/dL (<150) 01/31/18 14:10 Cholesterol 134 mg/dL (<200) 01/31/18 14:10 LDL Cholesterol Direct 94 mg/dL (75-193) 01/31/18 14:10 HDL Cholesterol 39 mg/dL (23-92) 01/31/18 14:10 Amylase 21 U/L (29-103) L 01/31/18 14:10 Lipase 13 U/L (11-82) 01/31/18 14:10 Serum , Qual NEGATIVE (NEGATIVE) 01/31/18 14:10 Urine Source CLEAN C 02/01/18 08:40 Urine Color YELLOW 02/01/18 08:40 Urine Clarity TURBID (CLEAR) H 02/01/18 08:40 Urine pH 7.0 (4.6 - 8.0) 02/01/18 08:40 Ur Specific [place] 1.020 (1.005-1.030) 02/01/18 08:40 Urine Protein >=300 mg/dL (NEGATIVE) 02/01/18 08:40 Urine Glucose (UA) NEGATIVE mg/dL (NEGATIVE) 02/01/18 08:40 Urine Ketones NEGATIVE mg/dL (NEGATIVE) 02/01/18 08:40 Urine Blood LARGE (NEGATIVE) H 02/01/18 08:40 Urine Nitrate NEGATIVE (NEGATIVE) 02/01/18 08:40 Urine Bilirubin SMALL (NEGATIVE) H 02/01/18 08:40 Urine Urobilinogen 0.2 E.U./dL (0.2 - 1.0) 02/01/18 08:40 Ur Leukocyte Esterase LARGE (NEGATIVE) H 02/01/18 08:40 Urine RBC 10-25 /hpf (0-5) H 02/01/18 08:40 Urine WBC >100 /hpf (0-5) H 02/01/18 08:40 Ur Epithelial Cells RARE /lpf (FEW) 02/01/18 08:40 Urine Bacteria MANY /hpf (NONE SEEN) H 02/01/18 08:40 Urine Test NEGATIVE 02/01/18 08:40 - Physical Exam Vitals and I&O: Vital Signs Temp 97.4 F 02/02/18 03:00 Pulse 90 02/02/18 07:00 Resp 18 02/02/18 07:00 BP 135/64 02/02/18 03:00 Pulse Ox 95 02/02/18 07:00 Intake & Output 02/01/18 02/02/18 02/02/18 18:59 06:59 18:59 Intake Total 50 50 Balance 50 50 Weight (lbs) 100.97 kg 103.873 kg Intake: Intake, IV Amount 50 50 Piperacillin Sodium/ 50 50 Tazobact 2.25 gm In Sodium Chloride 0.9% 50 ml @ 100 mls/hr IV Q8HR [facility] Rx#:[id number] Oral 0 Other: # Voids 3 # Bowel Movements 0 Weight Source Bedscale Bedscale Active Medications: Current Medications Acetaminophen (Tylenol) 650 mg PO Q6HR PRN PRN Reason: Pain or Fever >101 Stop: 04/02/18 12:17 Albuterol Sulfate (Albuterol 2.5mg/3ml Neb Ud) 2.5 mg HHN Q8H PRN PRN Reason: SOB/WHEEZING Stop: 04/02/18 12:17 Amlodipine Besylate (Norvasc) 10 mg PO HS [facility] Stop: 04/02/18 20:59 Last Admin: 02/01/18 21:39 Dose: Not Given Bisacodyl (Dulcolax 10 Mg Supp) 10 mg RC DAILY PRN PRN Reason: IF SENNA INEFFECTIVE Stop: 04/02/18 12:17 Docusate Sodium (Colace) 100 mg PO DAILY [facility] Stop: 04/03/18 08:59 Piperacillin Sod/Tazobactam (Sod 2.25 gm/ Sodium Chloride) 50 mls @ 100 mls/hr IV Q8HR [facility] Stop: 04/01/18 20:59 Last Admin: 02/02/18 05:40 Dose: 100 mls/hr Dextrose/Sodium Chloride (D5-0.45ns) 1,000 mls @ 30 mls/hr IV .Q24H [facility] Stop: 04/02/18 13:59 Last Admin: 02/01/18 17:31 Dose: 30 mls/hr Insulin Aspart (Novolog Insulin Sliding Scale) 0 units SUBQ ACHS JANAK; Protocol Stop: 04/02/18 16:29 Last Admin: 02/02/18 06:39 Dose: Not Given Lorazepam (Ativan) 0.5 mg IVP Q4HR PRN; Protocol PRN Reason: Anxiety Stop: 04/02/18 12:55 Morphine Sulfate (Morphine) 2 mg IV Q4HR PRN PRN Reason: Pain (Severe) 8-10 Stop: 04/01/18 18:29 Last Admin: 02/02/18 04:13 Dose: 2 mg Ondansetron HCl (Zofran) 4 mg IV Q4HR PRN PRN Reason: Nausea Stop: 04/01/18 18:29 Last Admin: 02/02/18 04:13 Dose: 4 mg Pantoprazole Sodium (Protonix) 20 mg PO DAILY [facility] Stop: 04/03/18 08:59 Senna (Senna) 8.6 mg PO DAILY PRN PRN Reason: Constipation Stop: 04/02/18 12:18 Sevelamer Carbonate (Renvela) 2,400 mg PO TID [facility] Stop: 04/02/18 13:59 Last Admin: 02/01/18 21:40 Dose: Not Given General: Alert, Oriented x3 HEENT: Atraumatic Neck: Supple Cardiovascular: Regular rate Abdomen: Bowel sounds, Tender, Distended, Obese, Other (large ventral hernia apparent), no Hepatomegaly, no Splenomegaly Psych/Mental Status: Mental status NL - Procedures Procedures: Procedures Procedure Code Date PERFORMANCE OF URINARY FILTRATION, <6 HRS/DAY [id number] 08/24/17 Assessment/Plan - Assessment Assessment: # Right sided abd pain # Large abdominal hernia along the right, containing multiple bowel loops # Cholelithiasis # ESRD on HD Suspect this pt's pain is multifactorial, but certainly has large component of hernia related pain. She has gallstones, and may also be suffering some element of chronic or acute cholecystitis. Dr Tony has evaluated her, and would recommend any surgery be performed at a tertiary center given complexity of her anatomy. Plan: - HIDA scan ordered - no operation planned today, thus she can go on full liquid diet - possible transfer to tertiary for hernia repair consideration and cholecystectomy as per surgeon and primary - endoscopy would not be helpful here, and likely not technically feasible given the large hernia - renal mgmt as per primary
[2018-02-02] MEDS: Pantoprazole 40 mg/Packet PO SCH (08:56)
[2018-02-02] MEDS ORDERED: OMEPRAZOLE 10 MG PO SCH (09:00)
[2018-02-02] MEDS ORDERED: Non-Formulary Item 1 EA (Amino Acids/Protein Hydrolys [Pro-Stat Sugar Free Liquid] 30 ML) PO SCH (09:00)
--- NOTE | 2018-02-02 09:08 | Diagnostic Imaging Report ---
Nuclear medicine HIDA scan HISTORY: Pain, assess for possible cholecystitis COMPARISON: ultrasound abdomen on 01/31/[address] abdomen and pelvis on 01/31/2018 Technique/procedure: 5.2 mCi of technetium labeled Choletec was administered intravenously and multiple scintigraphic images were obtained for up to 1 hour. FINDINGS: Prompt hepatic uptake is demonstrated. Gallbladder uptake is seen at gallbladder uptake is seen at 30 minutes. Small bowel uptake is also seen at 40 minutes. IMPRESSION: No evidence of acute cholecystitis.
--- NOTE | 2018-02-02 09:48 | General Progress Note ---
Subjective - Review of Systems Events since last encounter: 02/08/18 HIDA scan prompt uptake, no cholecystitis patient lives in [place], has large RLQ hernia for years, not tender if symptomatic, refer to tertiary facility for surgery Objective - Results Result Diagrams: 02/01/18 05:10 02/01/18 05:10 Recent Labs: Laboratory Last Values WBC 5.0 Th/cmm (4.8-10.8) D 02/01/18 05:10 RBC 3.71 Mil/cmm (3.80-5.10) L 02/01/18 05:10 Hgb 11.6 gm/dL (12-16) L 02/01/18 05:10 Hct 35.8 % (41.0-60) L 02/01/18 05:10 MCV 96.6 fl (81-100) 02/01/18 05:10 MCH 31.4 pg (27.0-31.0) H 02/01/18 05:10 MCHC Differential 32.5 pg (28.0-36.0) 02/01/18 05:10 RDW 17.4 % (11.5-20.0) 02/01/18 05:10 Plt Count 140 Th/cmm (150-400) L 02/01/18 05:10 MPV 8.8 fl 02/01/18 05:10 Neutrophils % 75.6 % (40.0-80.0) 02/01/18 05:10 Lymphocytes % 13.7 % (20.0-50.0) L 02/01/18 05:10 Monocytes % 9.0 % (2.0-10.0) 02/01/18 05:10 Eosinophils % 1.6 % (0.0-5.0) 02/01/18 05:10 Basophils % 0.1 % (0.0-2.0) 02/01/18 05:10 PT 12.7 SECONDS (9.5-11.5) H 01/31/18 14:10 INR 1.23 (0.5-1.4) 01/31/18 14:10 Sodium 139 mEq/L (136-145) 02/01/18 05:10 Potassium 5.1 mEq/L (3.5-5.1) 02/01/18 05:10 Chloride 103 mEq/L (98-107) 02/01/18 05:10 Carbon Dioxide 25.9 mEq/L (21.0-31.0) 02/01/18 05:10 Anion Gap 15.2 (7.0-16.0) 02/01/18 05:10 BUN 37 mg/dL (7-25) H 02/01/18 05:10 Creatinine 5.1 mg/dL (0.6-1.2) H* 02/01/18 05:10 Est GFR ( Amer) 11.3 ml/min (>90) 02/01/18 05:10 Est GFR (Non-Af Amer) 9.4 ml/min 02/01/18 05:10 BUN/Creatinine Ratio 7.3 02/01/18 05:10 Glucose 79 mg/dL (70-105) 02/01/18 05:10 POC Glucose 74 MG/DL (70 - 105) 02/02/18 05:42 Calcium 9.2 mg/dL (8.6-10.3) 02/01/18 05:10 Total Bilirubin 1.4 mg/dL (0.3-1.0) H 01/31/18 14:10 AST 18 U/L (13-39) 01/31/18 14:10 ALT 9 U/L (7-52) 01/31/18 14:10 Alkaline Phosphatase 80 U/L (34-104) 01/31/18 14:10 Creatine Kinase 33 U/L (30-223) 01/31/18 14:10 Troponin I 0.05 ng/mL (0.01-0.05) 01/31/18 14:10 B-Natriuretic Peptide > 5000.0 pg/mL (5.0-100.0) H 01/31/18 14:10 Total Protein 6.6 gm/dL (6.0-8.3) 01/31/18 14:10 Albumin 3.0 gm/dL (3.7-5.3) L 01/31/18 14:10 Globulin 3.6 gm/dL 01/31/18 14:10 Albumin/Globulin Ratio 0.8 (1.0-1.8) L 01/31/18 14:10 Triglycerides 75 mg/dL (<150) 01/31/18 14:10 Cholesterol 134 mg/dL (<200) 01/31/18 14:10 LDL Cholesterol Direct 94 mg/dL (75-193) 01/31/18 14:10 HDL Cholesterol 39 mg/dL (23-92) 01/31/18 14:10 Amylase 21 U/L (29-103) L 01/31/18 14:10 Lipase 13 U/L (11-82) 01/31/18 14:10 Serum , Qual NEGATIVE (NEGATIVE) 01/31/18 14:10 Urine Source CLEAN C 02/01/18 08:40 Urine Color YELLOW 02/01/18 08:40 Urine Clarity TURBID (CLEAR) H 02/01/18 08:40 Urine pH 7.0 (4.6 - 8.0) 02/01/18 08:40 Ur Specific [place] 1.020 (1.005-1.030) 02/01/18 08:40 Urine Protein >=300 mg/dL (NEGATIVE) 02/01/18 08:40 Urine Glucose (UA) NEGATIVE mg/dL (NEGATIVE) 02/01/18 08:40 Urine Ketones NEGATIVE mg/dL (NEGATIVE) 02/01/18 08:40 Urine Blood LARGE (NEGATIVE) H 02/01/18 08:40 Urine Nitrate NEGATIVE (NEGATIVE) 02/01/18 08:40 Urine Bilirubin SMALL (NEGATIVE) H 02/01/18 08:40 Urine Urobilinogen 0.2 E.U./dL (0.2 - 1.0) 02/01/18 08:40 Ur Leukocyte Esterase LARGE (NEGATIVE) H 02/01/18 08:40 Urine RBC 10-25 /hpf (0-5) H 02/01/18 08:40 Urine WBC >100 /hpf (0-5) H 02/01/18 08:40 Ur Epithelial Cells RARE /lpf (FEW) 02/01/18 08:40 Urine Bacteria MANY /hpf (NONE SEEN) H 02/01/18 08:40 Urine Test NEGATIVE 02/01/18 08:40 - Physical Exam Vitals and I&O: Vital Signs Temp 97.4 F 02/02/18 03:00 Pulse 90 02/02/18 07:00 Resp 18 02/02/18 08:37 BP 135/64 02/02/18 03:00 Pulse Ox 95 02/02/18 07:00 Intake & Output 02/01/18 02/02/18 02/02/18 18:59 06:59 18:59 Intake Total 50 50 Balance 50 50 Weight (lbs) 100.97 kg 103.873 kg Intake: Intake, IV Amount 50 50 Piperacillin Sodium/ 50 50 Tazobact 2.25 gm In Sodium Chloride 0.9% 50 ml @ 100 mls/hr IV Q8HR [facility] Rx#:[id number] Oral 0 Other: # Voids 3 # Bowel Movements 0 Weight Source Bedscale Bedscale Active Medications: Current Medications Acetaminophen (Tylenol) 650 mg PO Q6HR PRN PRN Reason: Pain or Fever >101 Stop: 04/02/18 12:17 Albuterol Sulfate (Albuterol 2.5mg/3ml Neb Ud) 2.5 mg HHN Q8H PRN PRN Reason: SOB/WHEEZING Stop: 04/02/18 12:17 Amlodipine Besylate (Norvasc) 10 mg PO HS [facility] Stop: 04/02/18 20:59 Last Admin: 02/01/18 21:39 Dose: Not Given Bisacodyl (Dulcolax 10 Mg Supp) 10 mg RC DAILY PRN PRN Reason: IF SENNA INEFFECTIVE Stop: 04/02/18 12:17 Docusate Sodium (Colace) 100 mg PO DAILY [facility] Stop: 04/03/18 08:59 Last Admin: 02/02/18 08:56 Dose: Not Given Piperacillin Sod/Tazobactam (Sod 2.25 gm/ Sodium Chloride) 50 mls @ 100 mls/hr IV Q8HR [facility] Stop: 04/01/18 20:59 Last Admin: 02/02/18 05:40 Dose: 100 mls/hr Dextrose/Sodium Chloride (D5-0.45ns) 1,000 mls @ 30 mls/hr IV .Q24H [facility] Stop: 04/02/18 13:59 Last Admin: 02/01/18 17:31 Dose: 30 mls/hr Insulin Aspart (Novolog Insulin Sliding Scale) 0 units SUBQ ACHS [facility]; Protocol Stop: 04/02/18 16:29 Last Admin: 02/02/18 06:39 Dose: Not Given Lorazepam (Ativan) 0.5 mg IVP Q4HR PRN; Protocol PRN Reason: Anxiety Stop: 04/02/18 12:55 Morphine Sulfate (Morphine) 2 mg IV Q4HR PRN PRN Reason: Pain (Severe) 8-10 Stop: 04/01/18 18:29 Last Admin: 02/02/18 08:53 Dose: 2 mg Ondansetron HCl (Zofran) 4 mg IV Q4HR PRN PRN Reason: Nausea Stop: 04/01/18 18:29 Last Admin: 02/02/18 08:53 Dose: 4 mg Pantoprazole Sodium (Protonix) 20 mg PO DAILY [facility] Stop: 04/03/18 08:59 Last Admin: 02/02/18 08:56 Dose: Not Given Senna (Senna) 8.6 mg PO DAILY PRN PRN Reason: Constipation Stop: 04/02/18 12:18 Sevelamer Carbonate (Renvela) 2,400 mg PO TID [facility] Stop: 04/02/18 13:59 Last Admin: 02/02/18 08:56 Dose: Not Given General: Alert, Oriented x3 HEENT: Atraumatic Neck: Supple Cardiovascular: Regular rate Abdomen: Bowel sounds, Tender, Distended, Obese, Other (large ventral hernia apparent), no Hepatomegaly, no Splenomegaly Psych/Mental Status: Mental status NL - Procedures Procedures: Procedures Procedure Code Date PERFORMANCE OF URINARY FILTRATION, <6 HRS/DAY [id number] 08/24/17
--- NOTE | 2018-02-02 10:54 | General Progress Note ---
Subjective - Review of Systems Service Date: 02/02/18 Subjective: alert, less abd pain, wants more Jello Objective - Results Result Diagrams: 02/01/18 05:10 02/01/18 05:10 Recent Labs: Laboratory Last Values WBC 5.0 Th/cmm (4.8-10.8) D 02/01/18 05:10 RBC 3.71 Mil/cmm (3.80-5.10) L 02/01/18 05:10 Hgb 11.6 gm/dL (12-16) L 02/01/18 05:10 Hct 35.8 % (41.0-60) L 02/01/18 05:10 MCV 96.6 fl (81-100) 02/01/18 05:10 MCH 31.4 pg (27.0-31.0) H 02/01/18 05:10 MCHC Differential 32.5 pg (28.0-36.0) 02/01/18 05:10 RDW 17.4 % (11.5-20.0) 02/01/18 05:10 Plt Count 140 Th/cmm (150-400) L 02/01/18 05:10 MPV 8.8 fl 02/01/18 05:10 Neutrophils % 75.6 % (40.0-80.0) 02/01/18 05:10 Lymphocytes % 13.7 % (20.0-50.0) L 02/01/18 05:10 Monocytes % 9.0 % (2.0-10.0) 02/01/18 05:10 Eosinophils % 1.6 % (0.0-5.0) 02/01/18 05:10 Basophils % 0.1 % (0.0-2.0) 02/01/18 05:10 PT 12.7 SECONDS (9.5-11.5) H 01/31/18 14:10 INR 1.23 (0.5-1.4) 01/31/18 14:10 Sodium 139 mEq/L (136-145) 02/01/18 05:10 Potassium 5.1 mEq/L (3.5-5.1) 02/01/18 05:10 Chloride 103 mEq/L (98-107) 02/01/18 05:10 Carbon Dioxide 25.9 mEq/L (21.0-31.0) 02/01/18 05:10 Anion Gap 15.2 (7.0-16.0) 02/01/18 05:10 BUN 37 mg/dL (7-25) H 02/01/18 05:10 Creatinine 5.1 mg/dL (0.6-1.2) H* 02/01/18 05:10 Est GFR ( Amer) 11.3 ml/min (>90) 02/01/18 05:10 Est GFR (Non-Af Amer) 9.4 ml/min 02/01/18 05:10 BUN/Creatinine Ratio 7.3 02/01/18 05:10 Glucose 79 mg/dL (70-105) 02/01/18 05:10 POC Glucose 74 MG/DL (70 - 105) 02/02/18 05:42 Calcium 9.2 mg/dL (8.6-10.3) 02/01/18 05:10 Total Bilirubin 1.4 mg/dL (0.3-1.0) H 01/31/18 14:10 AST 18 U/L (13-39) 01/31/18 14:10 ALT 9 U/L (7-52) 01/31/18 14:10 Alkaline Phosphatase 80 U/L (34-104) 01/31/18 14:10 Creatine Kinase 33 U/L (30-223) 01/31/18 14:10 Troponin I 0.05 ng/mL (0.01-0.05) 01/31/18 14:10 B-Natriuretic Peptide > 5000.0 pg/mL (5.0-100.0) H 01/31/18 14:10 Total Protein 6.6 gm/dL (6.0-8.3) 01/31/18 14:10 Albumin 3.0 gm/dL (3.7-5.3) L 01/31/18 14:10 Globulin 3.6 gm/dL 01/31/18 14:10 Albumin/Globulin Ratio 0.8 (1.0-1.8) L 01/31/18 14:10 Triglycerides 75 mg/dL (<150) 01/31/18 14:10 Cholesterol 134 mg/dL (<200) 01/31/18 14:10 LDL Cholesterol Direct 94 mg/dL (75-193) 01/31/18 14:10 HDL Cholesterol 39 mg/dL (23-92) 01/31/18 14:10 Amylase 21 U/L (29-103) L 01/31/18 14:10 Lipase 13 U/L (11-82) 01/31/18 14:10 Serum , Qual NEGATIVE (NEGATIVE) 01/31/18 14:10 Urine Source CLEAN C 02/01/18 08:40 Urine Color YELLOW 02/01/18 08:40 Urine Clarity TURBID (CLEAR) H 02/01/18 08:40 Urine pH 7.0 (4.6 - 8.0) 02/01/18 08:40 Ur Specific [place] 1.020 (1.005-1.030) 02/01/18 08:40 Urine Protein >=300 mg/dL (NEGATIVE) 02/01/18 08:40 Urine Glucose (UA) NEGATIVE mg/dL (NEGATIVE) 02/01/18 08:40 Urine Ketones NEGATIVE mg/dL (NEGATIVE) 02/01/18 08:40 Urine Blood LARGE (NEGATIVE) H 02/01/18 08:40 Urine Nitrate NEGATIVE (NEGATIVE) 02/01/18 08:40 Urine Bilirubin SMALL (NEGATIVE) H 02/01/18 08:40 Urine Urobilinogen 0.2 E.U./dL (0.2 - 1.0) 02/01/18 08:40 Ur Leukocyte Esterase LARGE (NEGATIVE) H 02/01/18 08:40 Urine RBC 10-25 /hpf (0-5) H 02/01/18 08:40 Urine WBC >100 /hpf (0-5) H 02/01/18 08:40 Ur Epithelial Cells RARE /lpf (FEW) 02/01/18 08:40 Urine Bacteria MANY /hpf (NONE SEEN) H 02/01/18 08:40 Urine Test NEGATIVE 02/01/18 08:40 - Physical Exam Vitals and I&O: Vital Signs Temp 97.4 F 02/02/18 03:00 Pulse 90 02/02/18 07:00 Resp 18 02/02/18 08:37 BP 135/64 02/02/18 03:00 Pulse Ox 95 02/02/18 07:00 Intake & Output 02/01/18 02/02/18 02/02/18 18:59 06:59 18:59 Intake Total 50 50 Balance 50 50 Weight (lbs) 100.97 kg 103.873 kg Intake: Intake, IV Amount 50 50 Piperacillin Sodium/ 50 50 Tazobact 2.25 gm In Sodium Chloride 0.9% 50 ml @ 100 mls/hr IV Q8HR [facility] Rx#:[id number] Oral 0 Other: # Voids 3 # Bowel Movements 0 Weight Source Bedscale Bedscale Active Medications: Current Medications Acetaminophen (Tylenol) 650 mg PO Q6HR PRN PRN Reason: Pain or Fever >101 Stop: 04/02/18 12:17 Albuterol Sulfate (Albuterol 2.5mg/3ml Neb Ud) 2.5 mg HHN Q8H PRN PRN Reason: SOB/WHEEZING Stop: 04/02/18 12:17 Amlodipine Besylate (Norvasc) 10 mg PO HS [facility] Stop: 04/02/18 20:59 Last Admin: 02/01/18 21:39 Dose: Not Given Bisacodyl (Dulcolax 10 Mg Supp) 10 mg RC DAILY PRN PRN Reason: IF SENNA INEFFECTIVE Stop: 04/02/18 12:17 Docusate Sodium (Colace) 100 mg PO DAILY [facility] Stop: 04/03/18 08:59 Last Admin: 02/02/18 08:56 Dose: Not Given Piperacillin Sod/Tazobactam (Sod 2.25 gm/ Sodium Chloride) 50 mls @ 100 mls/hr IV Q8HR [facility] Stop: 04/01/18 20:59 Last Admin: 02/02/18 05:40 Dose: 100 mls/hr Dextrose/Sodium Chloride (D5-0.45ns) 1,000 mls @ 30 mls/hr IV .Q24H [facility] Stop: 04/02/18 13:59 Last Admin: 02/01/18 17:31 Dose: 30 mls/hr Insulin Aspart (Novolog Insulin Sliding Scale) 0 units SUBQ ACHS [facility]; Protocol Stop: 04/02/18 16:29 Last Admin: 02/02/18 06:39 Dose: Not Given Lorazepam (Ativan) 0.5 mg IVP Q4HR PRN; Protocol PRN Reason: Anxiety Stop: 04/02/18 12:55 Morphine Sulfate (Morphine) 2 mg IV Q4HR PRN PRN Reason: Pain (Severe) 8-10 Stop: 04/01/18 18:29 Last Admin: 02/02/18 08:53 Dose: 2 mg Ondansetron HCl (Zofran) 4 mg IV Q4HR PRN PRN Reason: Nausea Stop: 04/01/18 18:29 Last Admin: 02/02/18 08:53 Dose: 4 mg Pantoprazole Sodium (Protonix) 20 mg PO DAILY [facility] Stop: 04/03/18 08:59 Last Admin: 02/02/18 08:56 Dose: Not Given Senna (Senna) 8.6 mg PO DAILY PRN PRN Reason: Constipation Stop: 04/02/18 12:18 Sevelamer Carbonate (Renvela) 2,400 mg PO TID [facility] Stop: 04/02/18 13:59 Last Admin: 02/02/18 08:56 Dose: Not Given General: Alert, Oriented x3, Mild distress HEENT: Atraumatic, Mucous membr. moist/pink Neck: Supple, +2 carotid pulse wo bruit Cardiovascular: Regular rate, Normal S1, Normal S2 Lungs: Clear to auscultation Abdomen: Bowel sounds, Tender, Distended, Obese, Other (large ventral hernia apparent), no Hepatomegaly, no Splenomegaly Extremities: no Edema Neurological: Sensation intact Skin: no Rash Psych/Mental Status: Mental status NL - Procedures Procedures: Procedures Procedure Code Date PERFORMANCE OF URINARY FILTRATION, <6 HRS/DAY [id number] 08/24/17 Assessment/Plan - Assessment Assessment: ESRD Large right abd hernia GB stones T2DM w/ CKD COPD Dyslipidemia Morbid obesity - Plan Plan: Lab - Result Diagrams 02/01/18 05:10 02/01/18 05:10 Current Medications Acetaminophen (Tylenol) 650 mg PO Q6HR PRN PRN Reason: Pain or Fever >101 Stop: 04/02/18 12:17 Albuterol Sulfate (Albuterol 2.5mg/3ml Neb Ud) 2.5 mg HHN Q8H PRN PRN Reason: SOB/WHEEZING Stop: 04/02/18 12:17 Amlodipine Besylate (Norvasc) 10 mg PO HS [facility] Stop: 04/02/18 20:59 Last Admin: 02/01/18 21:39 Dose: Not Given Bisacodyl (Dulcolax 10 Mg Supp) 10 mg RC DAILY PRN PRN Reason: IF SENNA INEFFECTIVE Stop: 04/02/18 12:17 Docusate Sodium (Colace) 100 mg PO DAILY [facility] Stop: 04/03/18 08:59 Last Admin: 02/02/18 08:56 Dose: Not Given Piperacillin Sod/Tazobactam (Sod 2.25 gm/ Sodium Chloride) 50 mls @ 100 mls/hr IV Q8HR [facility] Stop: 04/01/18 20:59 Last Admin: 02/02/18 05:40 Dose: 100 mls/hr Dextrose/Sodium Chloride (D5-0.45ns) 1,000 mls @ 30 mls/hr IV .Q24H [facility] Stop: 04/02/18 13:59 Last Admin: 02/01/18 17:31 Dose: 30 mls/hr Insulin Aspart (Novolog Insulin Sliding Scale) 0 units SUBQ ACHS [facility]; Protocol Stop: 04/02/18 16:29 Last Admin: 02/02/18 06:39 Dose: Not Given Lorazepam (Ativan) 0.5 mg IVP Q4HR PRN; Protocol PRN Reason: Anxiety Stop: 04/02/18 12:55 Morphine Sulfate (Morphine) 2 mg IV Q4HR PRN PRN Reason: Pain (Severe) 8-10 Stop: 04/01/18 18:29 Last Admin: 02/02/18 08:53 Dose: 2 mg Ondansetron HCl (Zofran) 4 mg IV Q4HR PRN PRN Reason: Nausea Stop: 04/01/18 18:29 Last Admin: 02/02/18 08:53 Dose: 4 mg Pantoprazole Sodium (Protonix) 20 mg PO DAILY [facility] Stop: 04/03/18 08:59 Last Admin: 02/02/18 08:56 Dose: Not Given Senna (Senna) 8.6 mg PO DAILY PRN PRN Reason: Constipation Stop: 04/02/18 12:18 Sevelamer Carbonate (Renvela) 2,400 mg PO TID [facility] Stop: 04/02/18 13:59 Last Admin: 02/02/18 08:56 Dose: Not Given Lab - Result Diagrams 02/01/18 05:10 02/01/18 05:10 schedule for HD in am HIDA scan negative per surgeon, due to complexity of surgery, will need transfer to tertiary facility
[2018-02-02] MEDS: Metoclopramide 5 mg/mL 2mL Vial IVP PRN (15:44)
[2018-02-02] MEDS: D5-0.45NS 1,000 ML IV SCH (16:57)
--- NOTE | 2018-02-02 23:24 | Internal Medicine Prog Note ---
Internal Medicine Subjective - Subjective Service Date: 02/02/18 Patient seen and examined:: with staff Patient is:: awake, verbal, interactive, arousable, in bed Patient Complaints of:: unable to sleep Per staff patient has:: no adverse event Internal Medicine Objective - Results Result Diagrams: 02/01/18 05:10 02/01/18 05:10 Recent Labs: Laboratory Last Values WBC 5.0 Th/cmm (4.8-10.8) D 02/01/18 05:10 RBC 3.71 Mil/cmm (3.80-5.10) L 02/01/18 05:10 Hgb 11.6 gm/dL (12-16) L 02/01/18 05:10 Hct 35.8 % (41.0-60) L 02/01/18 05:10 MCV 96.6 fl (81-100) 02/01/18 05:10 MCH 31.4 pg (27.0-31.0) H 02/01/18 05:10 MCHC Differential 32.5 pg (28.0-36.0) 02/01/18 05:10 RDW 17.4 % (11.5-20.0) 02/01/18 05:10 Plt Count 140 Th/cmm (150-400) L 02/01/18 05:10 MPV 8.8 fl 02/01/18 05:10 Neutrophils % 75.6 % (40.0-80.0) 02/01/18 05:10 Lymphocytes % 13.7 % (20.0-50.0) L 02/01/18 05:10 Monocytes % 9.0 % (2.0-10.0) 02/01/18 05:10 Eosinophils % 1.6 % (0.0-5.0) 02/01/18 05:10 Basophils % 0.1 % (0.0-2.0) 02/01/18 05:10 PT 12.7 SECONDS (9.5-11.5) H 01/31/18 14:10 INR 1.23 (0.5-1.4) 01/31/18 14:10 Sodium 139 mEq/L (136-145) 02/01/18 05:10 Potassium 5.1 mEq/L (3.5-5.1) 02/01/18 05:10 Chloride 103 mEq/L (98-107) 02/01/18 05:10 Carbon Dioxide 25.9 mEq/L (21.0-31.0) 02/01/18 05:10 Anion Gap 15.2 (7.0-16.0) 02/01/18 05:10 BUN 37 mg/dL (7-25) H 02/01/18 05:10 Creatinine 5.1 mg/dL (0.6-1.2) H* 02/01/18 05:10 Est GFR ( Amer) 11.3 ml/min (>90) 02/01/18 05:10 Est GFR (Non-Af Amer) 9.4 ml/min 02/01/18 05:10 BUN/Creatinine Ratio 7.3 02/01/18 05:10 Glucose 79 mg/dL (70-105) 02/01/18 05:10 POC Glucose 143 MG/DL (70 - 105) H 02/02/18 20:11 Calcium 9.2 mg/dL (8.6-10.3) 02/01/18 05:10 Total Bilirubin 1.4 mg/dL (0.3-1.0) H 01/31/18 14:10 AST 18 U/L (13-39) 01/31/18 14:10 ALT 9 U/L (7-52) 01/31/18 14:10 Alkaline Phosphatase 80 U/L (34-104) 01/31/18 14:10 Creatine Kinase 33 U/L (30-223) 01/31/18 14:10 Troponin I 0.05 ng/mL (0.01-0.05) 01/31/18 14:10 B-Natriuretic Peptide > 5000.0 pg/mL (5.0-100.0) H 01/31/18 14:10 Total Protein 6.6 gm/dL (6.0-8.3) 01/31/18 14:10 Albumin 3.0 gm/dL (3.7-5.3) L 01/31/18 14:10 Globulin 3.6 gm/dL 01/31/18 14:10 Albumin/Globulin Ratio 0.8 (1.0-1.8) L 01/31/18 14:10 Triglycerides 75 mg/dL (<150) 01/31/18 14:10 Cholesterol 134 mg/dL (<200) 01/31/18 14:10 LDL Cholesterol Direct 94 mg/dL (75-193) 01/31/18 14:10 HDL Cholesterol 39 mg/dL (23-92) 01/31/18 14:10 Amylase 21 U/L (29-103) L 01/31/18 14:10 Lipase 13 U/L (11-82) 01/31/18 14:10 Serum , Qual NEGATIVE (NEGATIVE) 01/31/18 14:10 Urine Source CLEAN C 02/01/18 08:40 Urine Color YELLOW 02/01/18 08:40 Urine Clarity TURBID (CLEAR) H 02/01/18 08:40 Urine pH 7.0 (4.6 - 8.0) 02/01/18 08:40 Ur Specific [place] 1.020 (1.005-1.030) 02/01/18 08:40 Urine Protein >=300 mg/dL (NEGATIVE) 02/01/18 08:40 Urine Glucose (UA) NEGATIVE mg/dL (NEGATIVE) 02/01/18 08:40 Urine Ketones NEGATIVE mg/dL (NEGATIVE) 02/01/18 08:40 Urine Blood LARGE (NEGATIVE) H 02/01/18 08:40 Urine Nitrate NEGATIVE (NEGATIVE) 02/01/18 08:40 Urine Bilirubin SMALL (NEGATIVE) H 02/01/18 08:40 Urine Urobilinogen 0.2 E.U./dL (0.2 - 1.0) 02/01/18 08:40 Ur Leukocyte Esterase LARGE (NEGATIVE) H 02/01/18 08:40 Urine RBC 10-25 /hpf (0-5) H 02/01/18 08:40 Urine WBC >100 /hpf (0-5) H 02/01/18 08:40 Ur Epithelial Cells RARE /lpf (FEW) 02/01/18 08:40 Urine Bacteria MANY /hpf (NONE SEEN) H 02/01/18 08:40 Urine Test NEGATIVE 02/01/18 08:40 - Physical Exam Vitals and I&O: Vital Signs Temp 97 F 02/02/18 20:09 Pulse 85 02/02/18 21:15 Resp 20 02/02/18 21:15 BP 138/66 02/02/18 20:19 Pulse Ox 95 02/02/18 21:15 Intake & Output 02/02/18 02/02/18 02/03/18 06:59 18:59 06:59 Intake Total 100 1253 Balance 100 1253 Weight (lbs) 103.873 kg 104.78 kg Intake: Intake, IV Amount 100 753 D5-0.45NS 1,000 ml @ 30 703 mls/hr IV .Q24H [facility] Rx#: [id number] Piperacillin Sodium/ 100 50 Tazobact 2.25 gm In Sodium Chloride 0.9% 50 ml @ 100 mls/hr IV Q8HR [facility] Rx#:[id number] Oral 0 500 Other: # Voids 3 1 # Bowel Movements 0 1 Weight Source Bedscale Bedscale Active Medications: Current Medications Acetaminophen (Tylenol) 650 mg PO Q6HR PRN PRN Reason: Pain or Fever >101 Stop: 04/02/18 12:17 Albuterol Sulfate (Albuterol 2.5mg/3ml Neb Ud) 2.5 mg HHN Q8H PRN PRN Reason: SOB/WHEEZING Stop: 04/02/18 12:17 Amlodipine Besylate (Norvasc) 10 mg PO HS [facility] Stop: 04/02/18 20:59 Last Admin: 02/02/18 20:19 Dose: Not Given Bisacodyl (Dulcolax 10 Mg Supp) 10 mg RC DAILY PRN PRN Reason: IF SENNA INEFFECTIVE Stop: 04/02/18 12:17 Docusate Sodium (Colace) 100 mg PO DAILY [facility] Stop: 04/03/18 08:59 Last Admin: 02/02/18 08:56 Dose: Not Given Piperacillin Sod/Tazobactam (Sod 2.25 gm/ Sodium Chloride) 50 mls @ 100 mls/hr IV Q8HR [facility] Stop: 04/01/18 20:59 Last Admin: 02/02/18 20:13 Dose: 100 mls/hr Dextrose/Sodium Chloride (D5-0.45ns) 1,000 mls @ 30 mls/hr IV .Q24H [facility] Stop: 04/02/18 13:59 Last Admin: 02/02/18 16:57 Dose: 30 mls/hr Insulin Aspart (Novolog Insulin Sliding Scale) 0 units SUBQ ACHS [facility]; Protocol Stop: 04/02/18 16:29 Last Admin: 02/02/18 20:12 Dose: Not Given Lorazepam (Ativan) 0.5 mg IVP Q4HR PRN; Protocol PRN Reason: Anxiety Stop: 04/02/18 12:55 Metoclopramide HCl (Reglan) 5 mg IVP Q8HR PRN PRN Reason: Nausea Stop: 04/03/18 12:47 Last Admin: 02/02/18 15:44 Dose: 5 mg Morphine Sulfate (Morphine) 2 mg IV Q4HR PRN PRN Reason: Pain (Severe) 8-10 Stop: 04/01/18 18:29 Last Admin: 02/02/18 20:18 Dose: 2 mg Mupirocin (Bactroban Oint) 1 appl NS BID [facility] Stop: 02/07/18 09:01 Last Admin: 02/02/18 16:17 Dose: 1 appl Ondansetron HCl (Zofran) 4 mg IV Q4HR PRN PRN Reason: Nausea Stop: 04/01/18 18:29 Last Admin: 02/02/18 20:18 Dose: 4 mg Pantoprazole Sodium (Protonix) 20 mg PO DAILY [facility] Stop: 04/03/18 08:59 Last Admin: 02/02/18 08:56 Dose: Not Given Senna (Senna) 8.6 mg PO DAILY PRN PRN Reason: Constipation Stop: 04/02/18 12:18 Sevelamer Carbonate (Renvela) 2,400 mg PO TID [facility] Stop: 04/02/18 13:59 Last Admin: 02/02/18 20:19 Dose: Not Given General: weak, lethargic HEENT: NC/AT, PERRLA, EOMI, anicteric sclerae, throat clear Neck: Supple, No JVD Lungs: CTAB, congested Cardiovascular: RRR Abdomen: tender Extremities: edema Neurological: no change - Procedures Procedures: Procedures Procedure Code Date PERFORMANCE OF URINARY FILTRATION, <6 HRS/DAY [id number] 08/24/17 Internal Medicine Assmt/Plan - Assessment Assessment: N&V: Reglan and Zofran IV q6 prn. UGIB? Protonix 40mg IVP bid. Abd pain: slightly better. Large abd wall hernia with possible bowel strangulation: transfer to tertiary care per surgery. UTI: pending final C&S result; adjust abx accordingly. RML PNA: IVPB ABX. ESRD: HD
[2018-02-03] MEDS: Metoclopramide 5 mg/mL 2mL Vial IVP PRN (04:21)
[2018-02-03 04:45] LABS: HEMOGLOBIN 11.7 gm/dL (12-16); MEAN CELL VOLUME 95.1 fl (81-100); MEAN CORPUSCULAR HEMOGLOBIN 32.6 pg (27.0-31.0); MEAN CORPUSCULAR HGB CONC 34.3 pg (28.0-36.0); MEAN PLATELET VOLUME 8.5 fl; PLATELET COUNT 167 Th/cmm (150-400); RED BLOOD COUNT 3.57 Mil/cmm (3.80-5.10); RED CELL DISTRIBUTION WIDTH 16.5 % (11.5-20.0); WHITE BLOOD COUNT 6.3 Th/cmm (4.8-10.8)
[2018-02-03 05:20] LABS: ANION GAP 17.2 (7.0-16.0); CALCIUM SERUM 8.6 mg/dL (8.6-10.3); CARBON DIOXIDE 35.7 mEq/L (21.0-31.0); GFR AFRICAN-AMERICAN 11.3 ml/min (>90); GFR NON AFRICAN-AMERICAN 9.4 ml/min; POTASSIUM SERUM 3.9 mEq/L (3.5-5.1)
[2018-02-03 05:46] LABS: CREATININE - SERUM 5.1 mg/dL (0.6-1.2)
[2018-02-03 06:25] LABS: BAND NEUTROPHILE 60 % (0-10); BASOPHIL 1 % (0-3); LYMPHOCYTE 14 % (20-50); MONOCYTE 13 % (2-10); NEUTROPHILS 12 % (40-80); PLATELET ESTIMATE ADEQUATE (NORMAL)
[2018-02-03] MEDS: INSULIN ASPART SLIDING SCALE 100 UNITS/ML UNIT SUBQ SCH ×4 (06:31→20:26)
--- NOTE | 2018-02-03 08:04 | GI Progress Note ---
Subjective - Review of Systems Service Date: 02/03/18 Subjective: Now having some brown colored vomiting, although hgb stable. Abd pain is the same Objective - Results Result Diagrams: 02/03/18 04:20 02/03/18 04:20 Recent Labs: Laboratory Last Values WBC 6.3 Th/cmm (4.8-10.8) 02/03/18 04:20 RBC 3.57 Mil/cmm (3.80-5.10) L 02/03/18 04:20 Hgb 11.7 gm/dL (12-16) L 02/03/18 04:20 Hct 34.0 % (41.0-60) L 02/03/18 04:20 MCV 95.1 fl (81-100) 02/03/18 04:20 MCH 32.6 pg (27.0-31.0) H 02/03/18 04:20 MCHC Differential 34.3 pg (28.0-36.0) 02/03/18 04:20 RDW 16.5 % (11.5-20.0) 02/03/18 04:20 Plt Count 167 Th/cmm (150-400) 02/03/18 04:20 MPV 8.5 fl 02/03/18 04:20 Add Manual Diff YES 02/03/18 04:20 Neutrophils % 75.6 % (40.0-80.0) 02/01/18 05:10 Band Neutrophils % 60 % (0-10) H 02/03/18 04:20 Lymphocytes % 13.7 % (20.0-50.0) L 02/01/18 05:10 Monocytes % 9.0 % (2.0-10.0) 02/01/18 05:10 Eosinophils % 1.6 % (0.0-5.0) 02/01/18 05:10 Basophils % 0.1 % (0.0-2.0) 02/01/18 05:10 Neutrophils (Manual) 12 % (40-80) L 02/03/18 04:20 Lymphocytes 14 % (20-50) L 02/03/18 04:20 Monocytes 13 % (2-10) H 02/03/18 04:20 Basophils 1 % (0-3) 02/03/18 04:20 Platelet Estimate ADEQUATE (NORMAL) 02/03/18 04:20 PT 12.7 SECONDS (9.5-11.5) H 01/31/18 14:10 INR 1.23 (0.5-1.4) 01/31/18 14:10 Sodium 142 mEq/L (136-145) 02/03/18 04:20 Potassium 3.9 mEq/L (3.5-5.1) 02/03/18 04:20 Chloride 93 mEq/L (98-107) L 02/03/18 04:20 Carbon Dioxide 35.7 mEq/L (21.0-31.0) H 02/03/18 04:20 Anion Gap 17.2 (7.0-16.0) H 02/03/18 04:20 BUN 39 mg/dL (7-25) H 02/03/18 04:20 Creatinine 5.1 mg/dL (0.6-1.2) H* 02/03/18 04:20 Est GFR ( Amer) 11.3 ml/min (>90) 02/03/18 04:20 Est GFR (Non-Af Amer) 9.4 ml/min 02/03/18 04:20 BUN/Creatinine Ratio 7.6 02/03/18 04:20 Glucose 185 mg/dL (70-105) H 02/03/18 04:20 POC Glucose 169 MG/DL (70 - 105) H 02/03/18 05:49 Calcium 8.6 mg/dL (8.6-10.3) 02/03/18 04:20 Total Bilirubin 1.4 mg/dL (0.3-1.0) H 01/31/18 14:10 AST 18 U/L (13-39) 01/31/18 14:10 ALT 9 U/L (7-52) 01/31/18 14:10 Alkaline Phosphatase 80 U/L (34-104) 01/31/18 14:10 Creatine Kinase 33 U/L (30-223) 01/31/18 14:10 Troponin I 0.05 ng/mL (0.01-0.05) 01/31/18 14:10 B-Natriuretic Peptide > 5000.0 pg/mL (5.0-100.0) H 01/31/18 14:10 Total Protein 6.6 gm/dL (6.0-8.3) 01/31/18 14:10 Albumin 3.0 gm/dL (3.7-5.3) L 01/31/18 14:10 Globulin 3.6 gm/dL 01/31/18 14:10 Albumin/Globulin Ratio 0.8 (1.0-1.8) L 01/31/18 14:10 Triglycerides 75 mg/dL (<150) 01/31/18 14:10 Cholesterol 134 mg/dL (<200) 01/31/18 14:10 LDL Cholesterol Direct 94 mg/dL (75-193) 01/31/18 14:10 HDL Cholesterol 39 mg/dL (23-92) 01/31/18 14:10 Amylase 21 U/L (29-103) L 01/31/18 14:10 Lipase 13 U/L (11-82) 01/31/18 14:10 Serum , Qual NEGATIVE (NEGATIVE) 01/31/18 14:10 Urine Source CLEAN C 02/01/18 08:40 Urine Color YELLOW 02/01/18 08:40 Urine Clarity TURBID (CLEAR) H 02/01/18 08:40 Urine pH 7.0 (4.6 - 8.0) 02/01/18 08:40 Ur Specific [place] 1.020 (1.005-1.030) 02/01/18 08:40 Urine Protein >=300 mg/dL (NEGATIVE) 02/01/18 08:40 Urine Glucose (UA) NEGATIVE mg/dL (NEGATIVE) 02/01/18 08:40 Urine Ketones NEGATIVE mg/dL (NEGATIVE) 02/01/18 08:40 Urine Blood LARGE (NEGATIVE) H 02/01/18 08:40 Urine Nitrate NEGATIVE (NEGATIVE) 02/01/18 08:40 Urine Bilirubin SMALL (NEGATIVE) H 02/01/18 08:40 Urine Urobilinogen 0.2 E.U./dL (0.2 - 1.0) 02/01/18 08:40 Ur Leukocyte Esterase LARGE (NEGATIVE) H 02/01/18 08:40 Urine RBC 10-25 /hpf (0-5) H 02/01/18 08:40 Urine WBC >100 /hpf (0-5) H 02/01/18 08:40 Ur Epithelial Cells RARE /lpf (FEW) 02/01/18 08:40 Urine Bacteria MANY /hpf (NONE SEEN) H 02/01/18 08:40 Urine Test NEGATIVE 02/01/18 08:40 - Physical Exam Vitals and I&O: Vital Signs Temp 97.1 F 02/03/18 04:00 Pulse 100 02/03/18 06:36 Resp 20 02/03/18 06:36 BP 134/75 02/03/18 04:00 Pulse Ox 91 02/03/18 06:36 Intake & Output 02/02/18 02/03/18 02/03/18 18:59 06:59 18:59 Intake Total 1253 1500 Output Total 1100 Balance 1253 400 Weight (lbs) 104.78 kg 104.78 kg Intake: Intake, IV Amount 753 100 D5-0.45NS 1,000 ml @ 30 703 mls/hr IV .Q24H [facility] Rx#: [id number] Piperacillin Sodium/ 50 100 Tazobact 2.25 gm In Sodium Chloride 0.9% 50 ml @ 100 mls/hr IV Q8HR [facility] Rx#:[id number] Oral 500 1400 Output: Emesis 1100 Other: # Voids 1 # Bowel Movements 1 Weight Source Bedscale Bedscale Active Medications: Current Medications Acetaminophen (Tylenol) 650 mg PO Q6HR PRN PRN Reason: Pain or Fever >101 Stop: 04/02/18 12:17 Albuterol Sulfate (Albuterol 2.5mg/3ml Neb Ud) 2.5 mg HHN Q8H PRN PRN Reason: SOB/WHEEZING Stop: 04/02/18 12:17 Last Admin: 02/03/18 06:36 Dose: 2.5 mg Amlodipine Besylate (Norvasc) 10 mg PO HS [facility] Stop: 04/02/18 20:59 Last Admin: 02/02/18 20:19 Dose: Not Given Bisacodyl (Dulcolax 10 Mg Supp) 10 mg RC DAILY PRN PRN Reason: IF SENNA INEFFECTIVE Stop: 04/02/18 12:17 Docusate Sodium (Colace) 100 mg PO DAILY [facility] Stop: 04/03/18 08:59 Last Admin: 02/02/18 08:56 Dose: Not Given Piperacillin Sod/Tazobactam (Sod 2.25 gm/ Sodium Chloride) 50 mls @ 100 mls/hr IV Q8HR [facility] Stop: 04/01/18 20:59 Last Infusion: 02/03/18 05:43 Dose: Infused Dextrose/Sodium Chloride (D5-0.45ns) 1,000 mls @ 30 mls/hr IV .Q24H [facility] Stop: 04/02/18 13:59 Last Admin: 02/02/18 16:57 Dose: 30 mls/hr Insulin Aspart (Novolog Insulin Sliding Scale) 0 units SUBQ ACHS [facility]; Protocol Stop: 04/02/18 16:29 Last Admin: 02/03/18 06:31 Dose: Not Given Lorazepam (Ativan) 0.5 mg IVP Q4HR PRN; Protocol PRN Reason: Anxiety Stop: 04/02/18 12:55 Metoclopramide HCl (Reglan) 5 mg IVP Q8HR PRN PRN Reason: Nausea Stop: 04/03/18 12:47 Last Admin: 02/03/18 04:21 Dose: 5 mg Morphine Sulfate (Morphine) 2 mg IV Q4HR PRN PRN Reason: Pain (Severe) 8-10 Stop: 04/01/18 18:29 Last Admin: 02/02/18 20:18 Dose: 2 mg Mupirocin (Bactroban Oint) 1 appl NS BID [facility] Stop: 02/07/18 09:01 Last Admin: 02/02/18 16:17 Dose: 1 appl Ondansetron HCl (Zofran) 4 mg IV Q4HR PRN PRN Reason: Nausea Stop: 04/01/18 18:29 Last Admin: 02/03/18 02:24 Dose: 4 mg Pantoprazole Sodium (Protonix) 20 mg PO DAILY [facility] Stop: 04/03/18 08:59 Last Admin: 02/02/18 08:56 Dose: Not Given Pantoprazole Sodium (Protonix) 40 mg IVP BID [facility] Stop: 04/04/18 00:00 Last Admin: 02/03/18 00:07 Dose: 40 mg Senna (Senna) 8.6 mg PO DAILY PRN PRN Reason: Constipation Stop: 04/02/18 12:18 Sevelamer Carbonate (Renvela) 2,400 mg PO TID [facility] Stop: 04/02/18 13:59 Last Admin: 02/02/18 20:19 Dose: Not Given General: Alert, Oriented x3, Mild distress HEENT: Atraumatic, Mucous membr. moist/pink Neck: Supple Cardiovascular: Regular rate Abdomen: Bowel sounds, Tender, Distended, Obese, Other (large ventral hernia apparent), no Hepatomegaly, no Splenomegaly Extremities: no Edema Neurological: Sensation intact Skin: no Rash Psych/Mental Status: Mental status NL - Procedures Procedures: Procedures Procedure Code Date PERFORMANCE OF URINARY FILTRATION, <6 HRS/DAY [id number] 08/24/17 Assessment/Plan - Assessment Assessment: # Right sided abd pain # Large abdominal hernia along the right, containing multiple bowel loops # Cholelithiasis # ESRD on HD Suspect this pt's pain is multifactorial, but certainly has large component of hernia related pain. She has gallstones, and may also be suffering some element of chronic or acute cholecystitis. Dr Tony has evaluated her, and would recommend any surgery be performed at a tertiary center given complexity of her anatomy. HIDA scan is negative for cystic duct obstruction. Suspect the etiology of her pain and vomiting is more related to the large hernia. Hernia repair is not possible at this hospital as per Dr Tony. Plan: - KUB today - pull back diet to clears given ongoing vomiting - try and minimize opiates as this only going to worsen the nausea and bowel dysmotility - trial of reglan - ppi bid given brown color to emesis, although hgb is stable - possible transfer to tertiary for hernia repair consideration and cholecystectomy as per surgeon and primary - if she develops worsening upper GI bleeding, we can consider endoscopy here for hemostasis. At this time, it is not necessary - renal mgmt as per primary
[2018-02-03] MEDS: Pantoprazole 40 mg/Packet PO SCH (08:56)
--- NOTE | 2018-02-03 16:36 | General Progress Note ---
Subjective - Review of Systems Service Date: 02/03/18 Subjective: still w/ abd pain, N/V, poor oral intake Objective - Results Result Diagrams: 02/03/18 04:20 02/03/18 04:20 Recent Labs: Laboratory Last Values WBC 6.3 Th/cmm (4.8-10.8) 02/03/18 04:20 RBC 3.57 Mil/cmm (3.80-5.10) L 02/03/18 04:20 Hgb 11.7 gm/dL (12-16) L 02/03/18 04:20 Hct 34.0 % (41.0-60) L 02/03/18 04:20 MCV 95.1 fl (81-100) 02/03/18 04:20 MCH 32.6 pg (27.0-31.0) H 02/03/18 04:20 MCHC Differential 34.3 pg (28.0-36.0) 02/03/18 04:20 RDW 16.5 % (11.5-20.0) 02/03/18 04:20 Plt Count 167 Th/cmm (150-400) 02/03/18 04:20 MPV 8.5 fl 02/03/18 04:20 Add Manual Diff YES 02/03/18 04:20 Neutrophils % 75.6 % (40.0-80.0) 02/01/18 05:10 Band Neutrophils % 60 % (0-10) H 02/03/18 04:20 Lymphocytes % 13.7 % (20.0-50.0) L 02/01/18 05:10 Monocytes % 9.0 % (2.0-10.0) 02/01/18 05:10 Eosinophils % 1.6 % (0.0-5.0) 02/01/18 05:10 Basophils % 0.1 % (0.0-2.0) 02/01/18 05:10 Neutrophils (Manual) 12 % (40-80) L 02/03/18 04:20 Lymphocytes 14 % (20-50) L 02/03/18 04:20 Monocytes 13 % (2-10) H 02/03/18 04:20 Basophils 1 % (0-3) 02/03/18 04:20 Platelet Estimate ADEQUATE (NORMAL) 02/03/18 04:20 PT 12.7 SECONDS (9.5-11.5) H 01/31/18 14:10 INR 1.23 (0.5-1.4) 01/31/18 14:10 Sodium 142 mEq/L (136-145) 02/03/18 04:20 Potassium 3.9 mEq/L (3.5-5.1) 02/03/18 04:20 Chloride 93 mEq/L (98-107) L 02/03/18 04:20 Carbon Dioxide 35.7 mEq/L (21.0-31.0) H 02/03/18 04:20 Anion Gap 17.2 (7.0-16.0) H 02/03/18 04:20 BUN 39 mg/dL (7-25) H 02/03/18 04:20 Creatinine 5.1 mg/dL (0.6-1.2) H* 02/03/18 04:20 Est GFR ( Amer) 11.3 ml/min (>90) 02/03/18 04:20 Est GFR (Non-Af Amer) 9.4 ml/min 02/03/18 04:20 BUN/Creatinine Ratio 7.6 02/03/18 04:20 Glucose 185 mg/dL (70-105) H 02/03/18 04:20 POC Glucose 162 MG/DL (70 - 105) H 02/03/18 11:38 Calcium 8.6 mg/dL (8.6-10.3) 02/03/18 04:20 Total Bilirubin 1.4 mg/dL (0.3-1.0) H 01/31/18 14:10 AST 18 U/L (13-39) 01/31/18 14:10 ALT 9 U/L (7-52) 01/31/18 14:10 Alkaline Phosphatase 80 U/L (34-104) 01/31/18 14:10 Creatine Kinase 33 U/L (30-223) 01/31/18 14:10 Troponin I 0.05 ng/mL (0.01-0.05) 01/31/18 14:10 B-Natriuretic Peptide > 5000.0 pg/mL (5.0-100.0) H 01/31/18 14:10 Total Protein 6.6 gm/dL (6.0-8.3) 01/31/18 14:10 Albumin 3.0 gm/dL (3.7-5.3) L 01/31/18 14:10 Globulin 3.6 gm/dL 01/31/18 14:10 Albumin/Globulin Ratio 0.8 (1.0-1.8) L 01/31/18 14:10 Triglycerides 75 mg/dL (<150) 01/31/18 14:10 Cholesterol 134 mg/dL (<200) 01/31/18 14:10 LDL Cholesterol Direct 94 mg/dL (75-193) 01/31/18 14:10 HDL Cholesterol 39 mg/dL (23-92) 01/31/18 14:10 Amylase 21 U/L (29-103) L 01/31/18 14:10 Lipase 13 U/L (11-82) 01/31/18 14:10 Serum , Qual NEGATIVE (NEGATIVE) 01/31/18 14:10 Urine Source CLEAN C 02/01/18 08:40 Urine Color YELLOW 02/01/18 08:40 Urine Clarity TURBID (CLEAR) H 02/01/18 08:40 Urine pH 7.0 (4.6 - 8.0) 02/01/18 08:40 Ur Specific [place] 1.020 (1.005-1.030) 02/01/18 08:40 Urine Protein >=300 mg/dL (NEGATIVE) 02/01/18 08:40 Urine Glucose (UA) NEGATIVE mg/dL (NEGATIVE) 02/01/18 08:40 Urine Ketones NEGATIVE mg/dL (NEGATIVE) 02/01/18 08:40 Urine Blood LARGE (NEGATIVE) H 02/01/18 08:40 Urine Nitrate NEGATIVE (NEGATIVE) 02/01/18 08:40 Urine Bilirubin SMALL (NEGATIVE) H 02/01/18 08:40 Urine Urobilinogen 0.2 E.U./dL (0.2 - 1.0) 02/01/18 08:40 Ur Leukocyte Esterase LARGE (NEGATIVE) H 02/01/18 08:40 Urine RBC 10-25 /hpf (0-5) H 02/01/18 08:40 Urine WBC >100 /hpf (0-5) H 02/01/18 08:40 Ur Epithelial Cells RARE /lpf (FEW) 02/01/18 08:40 Urine Bacteria MANY /hpf (NONE SEEN) H 02/01/18 08:40 Urine Test NEGATIVE 02/01/18 08:40 - Physical Exam Vitals and I&O: Vital Signs Temp 97.9 F 02/03/18 11:17 Pulse 90 02/03/18 11:17 Resp 18 02/03/18 15:13 BP 126/64 02/03/18 11:17 Pulse Ox 98 02/03/18 11:17 Intake & Output 02/02/18 02/03/18 02/03/18 18:59 06:59 18:59 Intake Total 1253 1500 Output Total 1100 Balance 1253 400 Weight (lbs) 104.78 kg 104.78 kg Intake: Intake, IV Amount 753 100 D5-0.45NS 1,000 ml @ 30 703 mls/hr IV .Q24H [facility] Rx#: [id number] Piperacillin Sodium/ 50 100 Tazobact 2.25 gm In Sodium Chloride 0.9% 50 ml @ 100 mls/hr IV Q8HR [facility] Rx#:[id number] Oral 500 1400 Output: Emesis 1100 Other: # Voids 1 # Bowel Movements 1 Weight Source Bedscale Bedscale Active Medications: Current Medications Acetaminophen (Tylenol) 650 mg PO Q6HR PRN PRN Reason: Pain or Fever >101 Stop: 04/02/18 12:17 Albuterol Sulfate (Albuterol 2.5mg/3ml Neb Ud) 2.5 mg HHN Q8H PRN PRN Reason: SOB/WHEEZING Stop: 04/02/18 12:17 Last Admin: 02/03/18 06:36 Dose: 2.5 mg Amlodipine Besylate (Norvasc) 10 mg PO HS [facility] Stop: 04/02/18 20:59 Last Admin: 02/02/18 20:19 Dose: Not Given Bisacodyl (Dulcolax 10 Mg Supp) 10 mg RC DAILY PRN PRN Reason: IF SENNA INEFFECTIVE Stop: 04/02/18 12:17 Docusate Sodium (Colace) 100 mg PO DAILY [facility] Stop: 04/03/18 08:59 Last Admin: 02/03/18 08:56 Dose: Not Given Piperacillin Sod/Tazobactam (Sod 2.25 gm/ Sodium Chloride) 50 mls @ 100 mls/hr IV Q8HR [facility] Stop: 04/01/18 20:59 Last Admin: 02/03/18 12:00 Dose: 100 mls/hr Dextrose/Sodium Chloride (D5-0.45ns) 1,000 mls @ 30 mls/hr IV .Q24H [facility] Stop: 04/02/18 13:59 Last Admin: 02/02/18 16:57 Dose: 30 mls/hr Insulin Aspart (Novolog Insulin Sliding Scale) 0 units SUBQ ACHS [facility]; Protocol Stop: 04/02/18 16:29 Last Admin: 02/03/18 11:50 Dose: Not Given Lorazepam (Ativan) 0.5 mg IVP Q4HR PRN; Protocol PRN Reason: Anxiety Stop: 04/02/18 12:55 Metoclopramide HCl (Reglan) 5 mg IVP Q8HR PRN PRN Reason: Nausea Stop: 04/03/18 12:47 Last Admin: 02/03/18 04:21 Dose: 5 mg Morphine Sulfate (Morphine) 2 mg IV Q4HR PRN PRN Reason: Pain (Severe) 8-10 Stop: 04/01/18 18:29 Mupirocin (Bactroban Oint) 1 appl NS BID [facility] Stop: 02/07/18 09:01 Last Admin: 02/03/18 16:31 Dose: 1 appl Ondansetron HCl (Zofran) 4 mg IV Q4HR PRN PRN Reason: Nausea Stop: 04/01/18 18:29 Last Admin: 02/03/18 13:22 Dose: 4 mg Pantoprazole Sodium (Protonix) 40 mg IVP BID [facility] Stop: 04/04/18 00:00 Last Admin: 02/03/18 16:31 Dose: 40 mg Senna (Senna) 8.6 mg PO DAILY PRN PRN Reason: Constipation Stop: 04/02/18 12:18 Sevelamer Carbonate (Renvela) 2,400 mg PO TID [facility] Stop: 04/02/18 13:59 Last Admin: 02/03/18 13:51 Dose: Not Given General: Alert, Oriented x3, Mild distress HEENT: Atraumatic, Mucous membr. moist/pink Neck: Supple Cardiovascular: Regular rate Lungs: Clear to auscultation Abdomen: Bowel sounds, Tender, Distended, Obese, Other (large ventral hernia apparent), no Hepatomegaly, no Splenomegaly Extremities: no Edema Neurological: Sensation intact Skin: no Rash Psych/Mental Status: Mental status NL - Procedures Procedures: Procedures Procedure Code Date PERFORMANCE OF URINARY FILTRATION, <6 HRS/DAY [id number] 08/24/17 Assessment/Plan - Assessment Assessment: ESRD Large right abd hernia GB stones T2DM w/ CKD COPD Dyslipidemia Morbid obesity - Plan Plan: Lab - Result Diagrams 02/01/18 05:10 02/01/18 05:10 Current Medications Acetaminophen (Tylenol) 650 mg PO Q6HR PRN PRN Reason: Pain or Fever >101 Stop: 04/02/18 12:17 Albuterol Sulfate (Albuterol 2.5mg/3ml Neb Ud) 2.5 mg HHN Q8H PRN PRN Reason: SOB/WHEEZING Stop: 04/02/18 12:17 Amlodipine Besylate (Norvasc) 10 mg PO HS [facility] Stop: 04/02/18 20:59 Last Admin: 02/01/18 21:39 Dose: Not Given Bisacodyl (Dulcolax 10 Mg Supp) 10 mg RC DAILY PRN PRN Reason: IF SENNA INEFFECTIVE Stop: 04/02/18 12:17 Docusate Sodium (Colace) 100 mg PO DAILY [facility] Stop: 04/03/18 08:59 Last Admin: 02/02/18 08:56 Dose: Not Given Piperacillin Sod/Tazobactam (Sod 2.25 gm/ Sodium Chloride) 50 mls @ 100 mls/hr IV Q8HR [facility] Stop: 04/01/18 20:59 Last Admin: 02/02/18 05:40 Dose: 100 mls/hr Dextrose/Sodium Chloride (D5-0.45ns) 1,000 mls @ 30 mls/hr IV .Q24H [facility] Stop: 04/02/18 13:59 Last Admin: 02/01/18 17:31 Dose: 30 mls/hr Insulin Aspart (Novolog Insulin Sliding Scale) 0 units SUBQ ACHS [facility]; Protocol Stop: 04/02/18 16:29 Last Admin: 02/02/18 06:39 Dose: Not Given Lorazepam (Ativan) 0.5 mg IVP Q4HR PRN; Protocol PRN Reason: Anxiety Stop: 04/02/18 12:55 Morphine Sulfate (Morphine) 2 mg IV Q4HR PRN PRN Reason: Pain (Severe) 8-10 Stop: 04/01/18 18:29 Last Admin: 02/02/18 08:53 Dose: 2 mg Ondansetron HCl (Zofran) 4 mg IV Q4HR PRN PRN Reason: Nausea Stop: 04/01/18 18:29 Last Admin: 02/02/18 08:53 Dose: 4 mg Pantoprazole Sodium (Protonix) 20 mg PO DAILY [facility] Stop: 04/03/18 08:59 Last Admin: 02/02/18 08:56 Dose: Not Given Senna (Senna) 8.6 mg PO DAILY PRN PRN Reason: Constipation Stop: 04/02/18 12:18 Sevelamer Carbonate (Renvela) 2,400 mg PO TID [facility] Stop: 04/02/18 13:59 Last Admin: 02/02/18 08:56 Dose: Not Given Lab - Result Diagrams 02/03/18 04:20 02/03/18 04:20 schedule for HD today HIDA scan negative per surgeon, due to complexity of surgery, will need transfer to tertiary facility Hgb/Hct stable
[2018-02-03] MEDS: D5-0.45NS 1,000 ML IV SCH (16:45)
[2018-02-03] MEDS: Morphine Sulfate 2 mg/mL 1mL Syr IV PRN (18:30)
--- NOTE | 2018-02-03 22:41 | Internal Medicine Prog Note ---
Internal Medicine Subjective - Subjective Service Date: 02/03/18 Patient seen and examined:: with staff Patient is:: awake, verbal, interactive, arousable, in bed Patient Complaints of:: unable to sleep Per staff patient has:: no adverse event Internal Medicine Objective - Results Result Diagrams: 02/03/18 04:20 02/03/18 04:20 Recent Labs: Laboratory Last Values WBC 6.3 Th/cmm (4.8-10.8) 02/03/18 04:20 RBC 3.57 Mil/cmm (3.80-5.10) L 02/03/18 04:20 Hgb 11.7 gm/dL (12-16) L 02/03/18 04:20 Hct 34.0 % (41.0-60) L 02/03/18 04:20 MCV 95.1 fl (81-100) 02/03/18 04:20 MCH 32.6 pg (27.0-31.0) H 02/03/18 04:20 MCHC Differential 34.3 pg (28.0-36.0) 02/03/18 04:20 RDW 16.5 % (11.5-20.0) 02/03/18 04:20 Plt Count 167 Th/cmm (150-400) 02/03/18 04:20 MPV 8.5 fl 02/03/18 04:20 Add Manual Diff YES 02/03/18 04:20 Neutrophils % 75.6 % (40.0-80.0) 02/01/18 05:10 Band Neutrophils % 60 % (0-10) H 02/03/18 04:20 Lymphocytes % 13.7 % (20.0-50.0) L 02/01/18 05:10 Monocytes % 9.0 % (2.0-10.0) 02/01/18 05:10 Eosinophils % 1.6 % (0.0-5.0) 02/01/18 05:10 Basophils % 0.1 % (0.0-2.0) 02/01/18 05:10 Neutrophils (Manual) 12 % (40-80) L 02/03/18 04:20 Lymphocytes 14 % (20-50) L 02/03/18 04:20 Monocytes 13 % (2-10) H 02/03/18 04:20 Basophils 1 % (0-3) 02/03/18 04:20 Platelet Estimate ADEQUATE (NORMAL) 02/03/18 04:20 PT 12.7 SECONDS (9.5-11.5) H 01/31/18 14:10 INR 1.23 (0.5-1.4) 01/31/18 14:10 Sodium 142 mEq/L (136-145) 02/03/18 04:20 Potassium 3.9 mEq/L (3.5-5.1) 02/03/18 04:20 Chloride 93 mEq/L (98-107) L 02/03/18 04:20 Carbon Dioxide 35.7 mEq/L (21.0-31.0) H 02/03/18 04:20 Anion Gap 17.2 (7.0-16.0) H 02/03/18 04:20 BUN 39 mg/dL (7-25) H 02/03/18 04:20 Creatinine 5.1 mg/dL (0.6-1.2) H* 02/03/18 04:20 Est GFR ( Amer) 11.3 ml/min (>90) 02/03/18 04:20 Est GFR (Non-Af Amer) 9.4 ml/min 02/03/18 04:20 BUN/Creatinine Ratio 7.6 02/03/18 04:20 Glucose 185 mg/dL (70-105) H 02/03/18 04:20 POC Glucose 175 MG/DL (70 - 105) H 02/03/18 20:26 Calcium 8.6 mg/dL (8.6-10.3) 02/03/18 04:20 Total Bilirubin 1.4 mg/dL (0.3-1.0) H 01/31/18 14:10 AST 18 U/L (13-39) 01/31/18 14:10 ALT 9 U/L (7-52) 01/31/18 14:10 Alkaline Phosphatase 80 U/L (34-104) 01/31/18 14:10 Creatine Kinase 33 U/L (30-223) 01/31/18 14:10 Troponin I 0.05 ng/mL (0.01-0.05) 01/31/18 14:10 B-Natriuretic Peptide > 5000.0 pg/mL (5.0-100.0) H 01/31/18 14:10 Total Protein 6.6 gm/dL (6.0-8.3) 01/31/18 14:10 Albumin 3.0 gm/dL (3.7-5.3) L 01/31/18 14:10 Globulin 3.6 gm/dL 01/31/18 14:10 Albumin/Globulin Ratio 0.8 (1.0-1.8) L 01/31/18 14:10 Triglycerides 75 mg/dL (<150) 01/31/18 14:10 Cholesterol 134 mg/dL (<200) 01/31/18 14:10 LDL Cholesterol Direct 94 mg/dL (75-193) 01/31/18 14:10 HDL Cholesterol 39 mg/dL (23-92) 01/31/18 14:10 Amylase 21 U/L (29-103) L 01/31/18 14:10 Lipase 13 U/L (11-82) 01/31/18 14:10 Serum , Qual NEGATIVE (NEGATIVE) 01/31/18 14:10 Urine Source CLEAN C 02/01/18 08:40 Urine Color YELLOW 02/01/18 08:40 Urine Clarity TURBID (CLEAR) H 02/01/18 08:40 Urine pH 7.0 (4.6 - 8.0) 02/01/18 08:40 Ur Specific [place] 1.020 (1.005-1.030) 02/01/18 08:40 Urine Protein >=300 mg/dL (NEGATIVE) 02/01/18 08:40 Urine Glucose (UA) NEGATIVE mg/dL (NEGATIVE) 02/01/18 08:40 Urine Ketones NEGATIVE mg/dL (NEGATIVE) 02/01/18 08:40 Urine Blood LARGE (NEGATIVE) H 02/01/18 08:40 Urine Nitrate NEGATIVE (NEGATIVE) 02/01/18 08:40 Urine Bilirubin SMALL (NEGATIVE) H 02/01/18 08:40 Urine Urobilinogen 0.2 E.U./dL (0.2 - 1.0) 02/01/18 08:40 Ur Leukocyte Esterase LARGE (NEGATIVE) H 02/01/18 08:40 Urine RBC 10-25 /hpf (0-5) H 02/01/18 08:40 Urine WBC >100 /hpf (0-5) H 02/01/18 08:40 Ur Epithelial Cells RARE /lpf (FEW) 02/01/18 08:40 Urine Bacteria MANY /hpf (NONE SEEN) H 02/01/18 08:40 Urine Test NEGATIVE 02/01/18 08:40 - Physical Exam Vitals and I&O: Vital Signs Temp 98.0 F 02/03/18 16:43 Pulse 110 02/03/18 20:41 Resp 20 02/03/18 19:51 BP 94/47 02/03/18 20:41 Pulse Ox 94 02/03/18 19:51 Intake & Output 02/03/18 02/03/18 02/04/18 06:59 18:59 06:59 Intake Total 1500 1064 Output Total 1100 Balance 400 1064 Weight (lbs) 104.78 kg 105.687 kg Intake: Intake, IV Amount 100 764 D5-0.45NS 1,000 ml @ 30 714 mls/hr IV .Q24H [facility] Rx#: [id number] Piperacillin Sodium/ 100 50 Tazobact 2.25 gm In Sodium Chloride 0.9% 50 ml @ 100 mls/hr IV Q8HR [facility] Rx#:[id number] Oral 1400 300 Output: Emesis 1100 Other: # Voids 1 # Bowel Movements 0 Weight Source Bedscale Bedscale Active Medications: Current Medications Acetaminophen (Tylenol) 650 mg PO Q6HR PRN PRN Reason: Pain or Fever >101 Stop: 04/02/18 12:17 Albuterol Sulfate (Albuterol 2.5mg/3ml Neb Ud) 2.5 mg HHN Q8H PRN PRN Reason: SOB/WHEEZING Stop: 04/02/18 12:17 Last Admin: 02/03/18 06:36 Dose: 2.5 mg Amlodipine Besylate (Norvasc) 10 mg PO HS [facility] Stop: 04/02/18 20:59 Last Admin: 02/03/18 20:41 Dose: Not Given Bisacodyl (Dulcolax 10 Mg Supp) 10 mg RC DAILY PRN PRN Reason: IF SENNA INEFFECTIVE Stop: 04/02/18 12:17 Docusate Sodium (Colace) 100 mg PO DAILY [facility] Stop: 04/03/18 08:59 Last Admin: 02/03/18 08:56 Dose: Not Given Piperacillin Sod/Tazobactam (Sod 2.25 gm/ Sodium Chloride) 50 mls @ 100 mls/hr IV Q8HR [facility] Stop: 04/01/18 20:59 Last Admin: 02/03/18 20:29 Dose: 100 mls/hr Dextrose/Sodium Chloride (D5-0.45ns) 1,000 mls @ 30 mls/hr IV .Q24H [facility] Stop: 04/02/18 13:59 Last Admin: 02/03/18 16:45 Dose: 30 mls/hr Insulin Aspart (Novolog Insulin Sliding Scale) 0 units SUBQ ACHS [facility]; Protocol Stop: 04/02/18 16:29 Last Admin: 02/03/18 20:26 Dose: Not Given Lorazepam (Ativan) 0.5 mg IVP Q4HR PRN; Protocol PRN Reason: Anxiety Stop: 04/02/18 12:55 Metoclopramide HCl (Reglan) 5 mg IVP Q8HR PRN PRN Reason: Nausea Stop: 04/03/18 12:47 Last Admin: 02/03/18 04:21 Dose: 5 mg Morphine Sulfate (Morphine) 2 mg IV Q4HR PRN PRN Reason: Pain (Severe) 8-10 Stop: 04/01/18 18:29 Last Admin: 02/03/18 18:30 Dose: 2 mg Mupirocin (Bactroban Oint) 1 appl NS BID [facility] Stop: 02/07/18 09:01 Last Admin: 02/03/18 16:31 Dose: 1 appl Ondansetron HCl (Zofran) 4 mg IV Q4HR PRN PRN Reason: Nausea Stop: 04/01/18 18:29 Last Admin: 02/03/18 13:22 Dose: 4 mg Pantoprazole Sodium (Protonix) 40 mg IVP BID [facility] Stop: 04/04/18 00:00 Last Admin: 02/03/18 16:31 Dose: 40 mg Senna (Senna) 8.6 mg PO DAILY PRN PRN Reason: Constipation Stop: 04/02/18 12:18 Sevelamer Carbonate (Renvela) 2,400 mg PO TID [facility] Stop: 04/02/18 13:59 Last Admin: 02/03/18 20:44 Dose: Not Given General: weak, lethargic HEENT: NC/AT, PERRLA, EOMI, anicteric sclerae, throat clear Neck: Supple, No JVD Lungs: CTAB, congested Cardiovascular: RRR Abdomen: tender Extremities: edema Neurological: no change - Procedures Procedures: Procedures Procedure Code Date PERFORMANCE OF URINARY FILTRATION, <6 HRS/DAY [id number] 08/24/17 Internal Medicine Assmt/Plan - Assessment Assessment: MDRO E. Coli UTI: sensitive to zosyn. N&V: Reglan and Zofran IV q6 prn. UGIB? Protonix 40mg IVP bid. Abd pain: slightly better. Large abd wall hernia with possible bowel strangulation: transfer to tertiary care per surgery. RML PNA: IVPB ABX. ESRD: HD
[2018-02-04] MEDS: Morphine Sulfate 2 mg/mL 1mL Syr IV PRN ×2 (02:26→09:55)
[2018-02-04] MEDS: INSULIN ASPART SLIDING SCALE 100 UNITS/ML UNIT SUBQ SCH ×4 (06:29→18:50)
--- NOTE | 2018-02-04 07:46 | GI Progress Note ---
Subjective - Review of Systems Service Date: 02/04/18 Subjective: Intermittenly vomiting, no appetite. KUB performed yesterday, but was not read Objective - Results Result Diagrams: 02/03/18 04:20 02/03/18 04:20 Recent Labs: Laboratory Last Values WBC 6.3 Th/cmm (4.8-10.8) 02/03/18 04:20 RBC 3.57 Mil/cmm (3.80-5.10) L 02/03/18 04:20 Hgb 11.7 gm/dL (12-16) L 02/03/18 04:20 Hct 34.0 % (41.0-60) L 02/03/18 04:20 MCV 95.1 fl (81-100) 02/03/18 04:20 MCH 32.6 pg (27.0-31.0) H 02/03/18 04:20 MCHC Differential 34.3 pg (28.0-36.0) 02/03/18 04:20 RDW 16.5 % (11.5-20.0) 02/03/18 04:20 Plt Count 167 Th/cmm (150-400) 02/03/18 04:20 MPV 8.5 fl 02/03/18 04:20 Add Manual Diff YES 02/03/18 04:20 Neutrophils % 75.6 % (40.0-80.0) 02/01/18 05:10 Band Neutrophils % 60 % (0-10) H 02/03/18 04:20 Lymphocytes % 13.7 % (20.0-50.0) L 02/01/18 05:10 Monocytes % 9.0 % (2.0-10.0) 02/01/18 05:10 Eosinophils % 1.6 % (0.0-5.0) 02/01/18 05:10 Basophils % 0.1 % (0.0-2.0) 02/01/18 05:10 Neutrophils (Manual) 12 % (40-80) L 02/03/18 04:20 Lymphocytes 14 % (20-50) L 02/03/18 04:20 Monocytes 13 % (2-10) H 02/03/18 04:20 Basophils 1 % (0-3) 02/03/18 04:20 Platelet Estimate ADEQUATE (NORMAL) 02/03/18 04:20 PT 12.7 SECONDS (9.5-11.5) H 01/31/18 14:10 INR 1.23 (0.5-1.4) 01/31/18 14:10 Sodium 142 mEq/L (136-145) 02/03/18 04:20 Potassium 3.9 mEq/L (3.5-5.1) 02/03/18 04:20 Chloride 93 mEq/L (98-107) L 02/03/18 04:20 Carbon Dioxide 35.7 mEq/L (21.0-31.0) H 02/03/18 04:20 Anion Gap 17.2 (7.0-16.0) H 02/03/18 04:20 BUN 39 mg/dL (7-25) H 02/03/18 04:20 Creatinine 5.1 mg/dL (0.6-1.2) H* 02/03/18 04:20 Est GFR ( Amer) 11.3 ml/min (>90) 02/03/18 04:20 Est GFR (Non-Af Amer) 9.4 ml/min 02/03/18 04:20 BUN/Creatinine Ratio 7.6 02/03/18 04:20 Glucose 185 mg/dL (70-105) H 02/03/18 04:20 POC Glucose 158 MG/DL (70 - 105) H 02/04/18 06:28 Calcium 8.6 mg/dL (8.6-10.3) 02/03/18 04:20 Total Bilirubin 1.4 mg/dL (0.3-1.0) H 01/31/18 14:10 AST 18 U/L (13-39) 01/31/18 14:10 ALT 9 U/L (7-52) 01/31/18 14:10 Alkaline Phosphatase 80 U/L (34-104) 01/31/18 14:10 Creatine Kinase 33 U/L (30-223) 01/31/18 14:10 Troponin I 0.05 ng/mL (0.01-0.05) 01/31/18 14:10 B-Natriuretic Peptide > 5000.0 pg/mL (5.0-100.0) H 01/31/18 14:10 Total Protein 6.6 gm/dL (6.0-8.3) 01/31/18 14:10 Albumin 3.0 gm/dL (3.7-5.3) L 01/31/18 14:10 Globulin 3.6 gm/dL 01/31/18 14:10 Albumin/Globulin Ratio 0.8 (1.0-1.8) L 01/31/18 14:10 Triglycerides 75 mg/dL (<150) 01/31/18 14:10 Cholesterol 134 mg/dL (<200) 01/31/18 14:10 LDL Cholesterol Direct 94 mg/dL (75-193) 01/31/18 14:10 HDL Cholesterol 39 mg/dL (23-92) 01/31/18 14:10 Amylase 21 U/L (29-103) L 01/31/18 14:10 Lipase 13 U/L (11-82) 01/31/18 14:10 Serum , Qual NEGATIVE (NEGATIVE) 01/31/18 14:10 Urine Source CLEAN C 02/01/18 08:40 Urine Color YELLOW 02/01/18 08:40 Urine Clarity TURBID (CLEAR) H 02/01/18 08:40 Urine pH 7.0 (4.6 - 8.0) 02/01/18 08:40 Ur Specific [place] 1.020 (1.005-1.030) 02/01/18 08:40 Urine Protein >=300 mg/dL (NEGATIVE) 02/01/18 08:40 Urine Glucose (UA) NEGATIVE mg/dL (NEGATIVE) 02/01/18 08:40 Urine Ketones NEGATIVE mg/dL (NEGATIVE) 02/01/18 08:40 Urine Blood LARGE (NEGATIVE) H 02/01/18 08:40 Urine Nitrate NEGATIVE (NEGATIVE) 02/01/18 08:40 Urine Bilirubin SMALL (NEGATIVE) H 02/01/18 08:40 Urine Urobilinogen 0.2 E.U./dL (0.2 - 1.0) 02/01/18 08:40 Ur Leukocyte Esterase LARGE (NEGATIVE) H 02/01/18 08:40 Urine RBC 10-25 /hpf (0-5) H 02/01/18 08:40 Urine WBC >100 /hpf (0-5) H 02/01/18 08:40 Ur Epithelial Cells RARE /lpf (FEW) 02/01/18 08:40 Urine Bacteria MANY /hpf (NONE SEEN) H 02/01/18 08:40 Urine Test NEGATIVE 02/01/18 08:40 - Physical Exam Vitals and I&O: Vital Signs Temp 97.7 F 02/04/18 04:00 Pulse 109 02/04/18 04:00 Resp 18 02/04/18 04:00 BP 105/42 02/04/18 04:00 Pulse Ox 94 02/03/18 19:51 Intake & Output 02/03/18 02/04/18 02/04/18 18:59 06:59 18:59 Intake Total 1064 491.5 Balance 1064 491.5 Weight (lbs) 105.687 kg 99.337 kg Intake: Intake, IV Amount 764 491.5 D5-0.45NS 1,000 ml @ 30 714 391.5 mls/hr IV .Q24H [facility] Rx#: [id number] Piperacillin Sodium/ 50 100 Tazobact 2.25 gm In Sodium Chloride 0.9% 50 ml @ 100 mls/hr IV Q8HR [facility] Rx#:[id number] Oral 300 Other: # Voids 1 1 # Bowel Movements 0 0 Weight Source Bedscale Bedscale Active Medications: Current Medications Acetaminophen (Tylenol) 650 mg PO Q6HR PRN PRN Reason: Pain or Fever >101 Stop: 04/02/18 12:17 Albuterol Sulfate (Albuterol 2.5mg/3ml Neb Ud) 2.5 mg HHN Q8H PRN PRN Reason: SOB/WHEEZING Stop: 04/02/18 12:17 Last Admin: 02/03/18 06:36 Dose: 2.5 mg Amlodipine Besylate (Norvasc) 10 mg PO HS [facility] Stop: 04/02/18 20:59 Last Admin: 02/03/18 20:41 Dose: Not Given Bisacodyl (Dulcolax 10 Mg Supp) 10 mg RC DAILY PRN PRN Reason: IF SENNA INEFFECTIVE Stop: 04/02/18 12:17 Docusate Sodium (Colace) 100 mg PO DAILY [facility] Stop: 04/03/18 08:59 Last Admin: 02/03/18 08:56 Dose: Not Given Piperacillin Sod/Tazobactam (Sod 2.25 gm/ Sodium Chloride) 50 mls @ 100 mls/hr IV Q8HR [facility] Stop: 04/01/18 20:59 Last Infusion: 02/04/18 05:06 Dose: Infused Dextrose/Sodium Chloride (D5-0.45ns) 1,000 mls @ 30 mls/hr IV .Q24H [facility] Stop: 04/02/18 13:59 Last Infusion: 02/04/18 05:48 Dose: 30 mls/hr Insulin Aspart (Novolog Insulin Sliding Scale) 0 units SUBQ ACHS [facility]; Protocol Stop: 04/02/18 16:29 Last Admin: 02/04/18 06:29 Dose: Not Given Lorazepam (Ativan) 0.5 mg IVP Q4HR PRN; Protocol PRN Reason: Anxiety Stop: 04/02/18 12:55 Metoclopramide HCl (Reglan) 5 mg IVP Q8HR PRN PRN Reason: Nausea Stop: 04/03/18 12:47 Last Admin: 02/03/18 04:21 Dose: 5 mg Morphine Sulfate (Morphine) 2 mg IV Q4HR PRN PRN Reason: Pain (Severe) 8-10 Stop: 04/01/18 18:29 Last Admin: 02/04/18 02:26 Dose: 2 mg Mupirocin (Bactroban Oint) 1 appl NS BID [facility] Stop: 02/07/18 09:01 Last Admin: 02/03/18 16:31 Dose: 1 appl Ondansetron HCl (Zofran) 4 mg IV Q4HR PRN PRN Reason: Nausea Stop: 04/01/18 18:29 Last Admin: 02/04/18 02:27 Dose: 4 mg Pantoprazole Sodium (Protonix) 40 mg IVP BID [facility] Stop: 04/04/18 00:00 Last Admin: 02/03/18 16:31 Dose: 40 mg Senna (Senna) 8.6 mg PO DAILY PRN PRN Reason: Constipation Stop: 04/02/18 12:18 Sevelamer Carbonate (Renvela) 2,400 mg PO TID [facility] Stop: 04/02/18 13:59 Last Admin: 02/03/18 20:44 Dose: Not Given General: Alert, Oriented x3, Mild distress HEENT: Atraumatic, Mucous membr. moist/pink Neck: Supple Cardiovascular: Regular rate Lungs: Clear to auscultation Abdomen: Bowel sounds, Tender, Distended, Obese, Other (large ventral hernia apparent), no Hepatomegaly, no Splenomegaly Extremities: no Edema Neurological: Sensation intact Skin: no Rash Psych/Mental Status: Mental status NL - Procedures Procedures: Procedures Procedure Code Date PERFORMANCE OF URINARY FILTRATION, <6 HRS/DAY [id number] 08/24/17 Assessment/Plan - Assessment Assessment: # Right sided abd pain # Large abdominal hernia along the right, containing multiple bowel loops # Cholelithiasis # ESRD on HD Suspect this pt's pain is multifactorial, but certainly has large component of hernia related pain. No evidence of acute cholecystitis by HIDA. Dr Tony has evaluated her, and recommends any surgery be performed at a tertiary center given complexity of her anatomy. HIDA scan is negative for cystic duct obstruction. Suspect the etiology of her pain and vomiting is more related to the large hernia, which contains multiple bowel loops. Hernia repair is not possible at this hospital as per Dr Tony. Plan: - will ask radiology to read KUB that was done yesterday. - cont clears for now - try and minimize opiates as this only going to worsen the nausea and bowel dysmotility - trial of reglan - ppi bid given brown color to emesis, although hgb is stable - possible transfer to tertiary for hernia repair consideration and cholecystectomy as per surgeon and primary - if she develops worsening upper GI bleeding, we can consider endoscopy here for hemostasis. At this time, it is not necessary - renal mgmt as per primary
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
--- NOTE | 2018-02-04 13:55 | General Progress Note ---
Subjective - Review of Systems Service Date: 02/04/18 Subjective: still w/ abd pain, now w/ hematemesis Objective - Results Result Diagrams: 02/03/18 04:20 02/03/18 04:20 Recent Labs: Laboratory Last Values WBC 6.3 Th/cmm (4.8-10.8) 02/03/18 04:20 RBC 3.57 Mil/cmm (3.80-5.10) L 02/03/18 04:20 Hgb 11.7 gm/dL (12-16) L 02/03/18 04:20 Hct 34.0 % (41.0-60) L 02/03/18 04:20 MCV 95.1 fl (81-100) 02/03/18 04:20 MCH 32.6 pg (27.0-31.0) H 02/03/18 04:20 MCHC Differential 34.3 pg (28.0-36.0) 02/03/18 04:20 RDW 16.5 % (11.5-20.0) 02/03/18 04:20 Plt Count 167 Th/cmm (150-400) 02/03/18 04:20 MPV 8.5 fl 02/03/18 04:20 Add Manual Diff YES 02/03/18 04:20 Neutrophils % 75.6 % (40.0-80.0) 02/01/18 05:10 Band Neutrophils % 60 % (0-10) H 02/03/18 04:20 Lymphocytes % 13.7 % (20.0-50.0) L 02/01/18 05:10 Monocytes % 9.0 % (2.0-10.0) 02/01/18 05:10 Eosinophils % 1.6 % (0.0-5.0) 02/01/18 05:10 Basophils % 0.1 % (0.0-2.0) 02/01/18 05:10 Neutrophils (Manual) 12 % (40-80) L 02/03/18 04:20 Lymphocytes 14 % (20-50) L 02/03/18 04:20 Monocytes 13 % (2-10) H 02/03/18 04:20 Basophils 1 % (0-3) 02/03/18 04:20 Platelet Estimate ADEQUATE (NORMAL) 02/03/18 04:20 PT 12.7 SECONDS (9.5-11.5) H 01/31/18 14:10 INR 1.23 (0.5-1.4) 01/31/18 14:10 Sodium 142 mEq/L (136-145) 02/03/18 04:20 Potassium 3.9 mEq/L (3.5-5.1) 02/03/18 04:20 Chloride 93 mEq/L (98-107) L 02/03/18 04:20 Carbon Dioxide 35.7 mEq/L (21.0-31.0) H 02/03/18 04:20 Anion Gap 17.2 (7.0-16.0) H 02/03/18 04:20 BUN 39 mg/dL (7-25) H 02/03/18 04:20 Creatinine 5.1 mg/dL (0.6-1.2) H* 02/03/18 04:20 Est GFR ( Amer) 11.3 ml/min (>90) 02/03/18 04:20 Est GFR (Non-Af Amer) 9.4 ml/min 02/03/18 04:20 BUN/Creatinine Ratio 7.6 02/03/18 04:20 Glucose 185 mg/dL (70-105) H 02/03/18 04:20 POC Glucose 137 MG/DL (70 - 105) H 02/04/18 11:36 Calcium 8.6 mg/dL (8.6-10.3) 02/03/18 04:20 Total Bilirubin 1.4 mg/dL (0.3-1.0) H 01/31/18 14:10 AST 18 U/L (13-39) 01/31/18 14:10 ALT 9 U/L (7-52) 01/31/18 14:10 Alkaline Phosphatase 80 U/L (34-104) 01/31/18 14:10 Creatine Kinase 33 U/L (30-223) 01/31/18 14:10 Troponin I 0.05 ng/mL (0.01-0.05) 01/31/18 14:10 B-Natriuretic Peptide > 5000.0 pg/mL (5.0-100.0) H 01/31/18 14:10 Total Protein 6.6 gm/dL (6.0-8.3) 01/31/18 14:10 Albumin 3.0 gm/dL (3.7-5.3) L 01/31/18 14:10 Globulin 3.6 gm/dL 01/31/18 14:10 Albumin/Globulin Ratio 0.8 (1.0-1.8) L 01/31/18 14:10 Triglycerides 75 mg/dL (<150) 01/31/18 14:10 Cholesterol 134 mg/dL (<200) 01/31/18 14:10 LDL Cholesterol Direct 94 mg/dL (75-193) 01/31/18 14:10 HDL Cholesterol 39 mg/dL (23-92) 01/31/18 14:10 Amylase 21 U/L (29-103) L 01/31/18 14:10 Lipase 13 U/L (11-82) 01/31/18 14:10 Serum , Qual NEGATIVE (NEGATIVE) 01/31/18 14:10 Urine Source CLEAN C 02/01/18 08:40 Urine Color YELLOW 02/01/18 08:40 Urine Clarity TURBID (CLEAR) H 02/01/18 08:40 Urine pH 7.0 (4.6 - 8.0) 02/01/18 08:40 Ur Specific [place] 1.020 (1.005-1.030) 02/01/18 08:40 Urine Protein >=300 mg/dL (NEGATIVE) 02/01/18 08:40 Urine Glucose (UA) NEGATIVE mg/dL (NEGATIVE) 02/01/18 08:40 Urine Ketones NEGATIVE mg/dL (NEGATIVE) 02/01/18 08:40 Urine Blood LARGE (NEGATIVE) H 02/01/18 08:40 Urine Nitrate NEGATIVE (NEGATIVE) 02/01/18 08:40 Urine Bilirubin SMALL (NEGATIVE) H 02/01/18 08:40 Urine Urobilinogen 0.2 E.U./dL (0.2 - 1.0) 02/01/18 08:40 Ur Leukocyte Esterase LARGE (NEGATIVE) H 02/01/18 08:40 Urine RBC 10-25 /hpf (0-5) H 02/01/18 08:40 Urine WBC >100 /hpf (0-5) H 02/01/18 08:40 Ur Epithelial Cells RARE /lpf (FEW) 02/01/18 08:40 Urine Bacteria MANY /hpf (NONE SEEN) H 02/01/18 08:40 Urine Test NEGATIVE 02/01/18 08:40 - Physical Exam Vitals and I&O: Vital Signs Temp 97.9 F 02/04/18 11:39 Pulse 107 02/04/18 11:39 Resp 18 02/04/18 11:41 BP 101/47 02/04/18 11:39 Pulse Ox 95 02/04/18 11:39 Intake & Output 02/03/18 02/04/18 02/04/18 18:59 06:59 18:59 Intake Total 1064 491.5 Balance 1064 491.5 Weight (lbs) 105.687 kg 99.337 kg Intake: Intake, IV Amount 764 491.5 D5-0.45NS 1,000 ml @ 30 714 391.5 mls/hr IV .Q24H [facility] Rx#: [id number] Piperacillin Sodium/ 50 100 Tazobact 2.25 gm In Sodium Chloride 0.9% 50 ml @ 100 mls/hr IV Q8HR [facility] Rx#:[id number] Oral 300 Other: # Voids 1 1 # Bowel Movements 0 0 Weight Source Bedscale Bedscale Active Medications: Current Medications Acetaminophen (Tylenol) 650 mg PO Q6HR PRN PRN Reason: Pain or Fever >101 Stop: 04/02/18 12:17 Albuterol Sulfate (Albuterol 2.5mg/3ml Neb Ud) 2.5 mg HHN Q8H PRN PRN Reason: SOB/WHEEZING Stop: 04/02/18 12:17 Last Admin: 02/03/18 06:36 Dose: 2.5 mg Amlodipine Besylate (Norvasc) 10 mg PO HS [facility] Stop: 04/02/18 20:59 Last Admin: 02/03/18 20:41 Dose: Not Given Bisacodyl (Dulcolax 10 Mg Supp) 10 mg RC DAILY PRN PRN Reason: IF SENNA INEFFECTIVE Stop: 04/02/18 12:17 Docusate Sodium (Colace) 100 mg PO DAILY [facility] Stop: 04/03/18 08:59 Last Admin: 02/04/18 09:53 Dose: Not Given Piperacillin Sod/Tazobactam (Sod 2.25 gm/ Sodium Chloride) 50 mls @ 100 mls/hr IV Q8HR [facility] Stop: 04/01/18 20:59 Last Admin: 02/04/18 12:00 Dose: 100 mls/hr Dextrose/Sodium Chloride (D5-0.45ns) 1,000 mls @ 30 mls/hr IV .Q24H [facility] Stop: 04/02/18 13:59 Last Infusion: 02/04/18 05:48 Dose: 30 mls/hr Insulin Aspart (Novolog Insulin Sliding Scale) 0 units SUBQ ACHS [facility]; Protocol Stop: 04/02/18 16:29 Last Admin: 02/04/18 11:54 Dose: Not Given Lorazepam (Ativan) 0.5 mg IVP Q4HR PRN; Protocol PRN Reason: Anxiety Stop: 04/02/18 12:55 Metoclopramide HCl (Reglan) 5 mg IVP Q8HR PRN PRN Reason: Nausea Stop: 04/03/18 12:47 Last Admin: 02/03/18 04:21 Dose: 5 mg Morphine Sulfate (Morphine) 2 mg IV Q4HR PRN PRN Reason: Pain (Severe) 8-10 Stop: 04/01/18 18:29 Last Admin: 02/04/18 09:55 Dose: 2 mg Mupirocin (Bactroban Oint) 1 appl NS BID [facility] Stop: 02/07/18 09:01 Last Admin: 02/04/18 09:55 Dose: 1 appl Ondansetron HCl (Zofran) 4 mg IV Q4HR PRN PRN Reason: Nausea Stop: 04/01/18 18:29 Last Admin: 02/04/18 02:27 Dose: 4 mg Pantoprazole Sodium (Protonix) 40 mg IVP BID [facility] Stop: 04/04/18 00:00 Last Admin: 02/04/18 09:55 Dose: 40 mg Senna (Senna) 8.6 mg PO DAILY PRN PRN Reason: Constipation Stop: 04/02/18 12:18 Sevelamer Carbonate (Renvela) 2,400 mg PO TID [facility] Stop: 04/02/18 13:59 Last Admin: 02/04/18 09:53 Dose: Not Given General: Severe distress HEENT: Atraumatic, Mucous membr. moist/pink Neck: Supple, +2 carotid pulse wo bruit Cardiovascular: Other (bradycardic) Lungs: Clear to auscultation Abdomen: Bowel sounds, Tender, Distended, Obese, Other (large ventral hernia apparent), no Hepatomegaly, no Splenomegaly Extremities: no Edema Skin: no Rash Psych/Mental Status: Mental status NL - Procedures Procedures: Procedures Procedure Code Date PERFORMANCE OF URINARY FILTRATION, <6 HRS/DAY [id number] 08/24/17 Assessment/Plan - Assessment Assessment: ESRD on HD Large right abd hernia GB stones T2DM w/ CKD COPD Dyslipidemia Morbid obesity CP arrest undergoing tresuscitation - Plan Plan: Lab - Result Diagrams 02/01/18 05:10 02/01/18 05:10 Current Medications Acetaminophen (Tylenol) 650 mg PO Q6HR PRN PRN Reason: Pain or Fever >101 Stop: 04/02/18 12:17 Albuterol Sulfate (Albuterol 2.5mg/3ml Neb Ud) 2.5 mg HHN Q8H PRN PRN Reason: SOB/WHEEZING Stop: 04/02/18 12:17 Amlodipine Besylate (Norvasc) 10 mg PO HS JANAK Stop: 04/02/18 20:59 Last Admin: 02/01/18 21:39 Dose: Not Given Bisacodyl (Dulcolax 10 Mg Supp) 10 mg RC DAILY PRN PRN Reason: IF SENNA INEFFECTIVE Stop: 04/02/18 12:17 Docusate Sodium (Colace) 100 mg PO DAILY [facility] Stop: 04/03/18 08:59 Last Admin: 02/02/18 08:56 Dose: Not Given Piperacillin Sod/Tazobactam (Sod 2.25 gm/ Sodium Chloride) 50 mls @ 100 mls/hr IV Q8HR [facility] Stop: 04/01/18 20:59 Last Admin: 02/02/18 05:40 Dose: 100 mls/hr Dextrose/Sodium Chloride (D5-0.45ns) 1,000 mls @ 30 mls/hr IV .Q24H [facility] Stop: 04/02/18 13:59 Last Admin: 02/01/18 17:31 Dose: 30 mls/hr Insulin Aspart (Novolog Insulin Sliding Scale) 0 units SUBQ ACHS JANAK; Protocol Stop: 04/02/18 16:29 Last Admin: 02/02/18 06:39 Dose: Not Given Lorazepam (Ativan) 0.5 mg IVP Q4HR PRN; Protocol PRN Reason: Anxiety Stop: 04/02/18 12:55 Morphine Sulfate (Morphine) 2 mg IV Q4HR PRN PRN Reason: Pain (Severe) 8-10 Stop: 04/01/18 18:29 Last Admin: 02/02/18 08:53 Dose: 2 mg Ondansetron HCl (Zofran) 4 mg IV Q4HR PRN PRN Reason: Nausea Stop: 04/01/18 18:29 Last Admin: 02/02/18 08:53 Dose: 4 mg Pantoprazole Sodium (Protonix) 20 mg PO DAILY [facility] Stop: 04/03/18 08:59 Last Admin: 02/02/18 08:56 Dose: Not Given Senna (Senna) 8.6 mg PO DAILY PRN PRN Reason: Constipation Stop: 04/02/18 12:18 Sevelamer Carbonate (Renvela) 2,400 mg PO TID [facility] Stop: 04/02/18 13:59 Last Admin: 02/02/18 08:56 Dose: Not Given Lab - Result Diagrams 02/03/18 04:20 02/03/18 04:20 schedule for HD in am HIDA scan negative per surgeon, due to complexity of surgery, will need transfer to tertiary facility Hgb/Hct stable transfer to ICU f/u electrolytes, cbc, CXR, troponin Nutritional Asmnt/Malnutr-PDOC - Dietary Evaluation Malnutrition Findings (Please click <Entered> for more info): Nutritional Asmnt/Malnutrition Start: 02/04/18 11: 53 Text: Status: Complete Freq: Protocol: Document 02/04/18 11:53 MILANA (Rec: 02/04/18 11:57 MILANA LUIS- [id number]) Nutritional Asmnt/Malnutrition Patient General Information Diagnosis abdominal pain Pertinent Medical Hx/Surgical Hx DM, chronic pain syndrome, PNA , UTI, ESRD HD, L hip surgery, CAD, dyslipidemia Subjective Information Pt asleep at time of visit did not wake to RD greeting Current Diet Order/ Nutrition Support clear liquid Pertinent Medications reviewed Pertinent Labs 02/04: POC glucose 137-158 Nutritional Hx/Data Height 1.63 m Height (Calculated Centimeters) 162.6 Current Weight (lbs) 99.337 kg Weight (Calculated Kilograms) 99.3 Weight (Calculated Grams) 25318.7 Body Mass Index (BMI) 37.5 Weight Status Obese GI Symptoms GI Symptoms None Last BM none noted Cultural/Ethnic/Amish Belief unknown Usual diet at home regular Skin Integrity/Comment: rajiv score 14 Current %PO Good (75-100%) Estimated Nutritional Goals BEE in Kcals: Adj wt of IBW Calories/Kcals/Kg 25-30kcals/kg Kcals Calculated 1650-1980kcals/day Protein: Adj wt of IBW Protein g/k.2g/kg Protein Calculated 79g/day Fluid: ml per MD Nutritional Problem 1. Problem Problem No nutrition diagnosis at this time Intervention/Recommendation Comments Recommend to advance diet as tolerated to [facility] diet Expected Outcomes/Goals Expected Outcomes/Goals PO intake >75% of meals
[2018-02-04] MEDS ORDERED: Norepinephrine 4 mg/4mL Vial IV ONE (14:10)
[2018-02-04 14:17] LABS: % BASOPHILS 0.6 % (0.0-2.0); % EOSINOPHILS 0.6 % (0.0-5.0); % LYMPHOCYTES 44.7 % (20.0-50.0); % MONOCYTES 2.8 % (2.0-10.0); % NEUTROPHILS 51.3 % (40.0-80.0); BASOPHILE ABSOLUTE 0.1 Th/cumm (0-0.2); EOSINOPHILE ABSOLUTE 0.1 Th/cmm (0.1-0.4); HEMATOCRIT 31.2 % (41.0-60); HEMOGLOBIN 9.8 gm/dL (12-16); LYMPHOCYTE ABSOLUTE 5.8 Th/cmm (1.5-3.0); MEAN CORPUSCULAR HEMOGLOBIN 31.3 pg (27.0-31.0); MEAN CORPUSCULAR HGB CONC 31.3 pg (28.0-36.0); MEAN PLATELET VOLUME 8.1 fl; MONOCYTE ABSOLUTE 0.4 Th/cmm (0.3-1.0); NEUTROPHILE ABSOLUTE 6.6 Th/cmm (1.8-8.0); PLATELET COUNT 142 Th/cmm (150-400); RED BLOOD COUNT 3.12 Mil/cmm (3.80-5.10); RED CELL DISTRIBUTION WIDTH 18.8 % (11.5-20.0)
[2018-02-04 14:31] LABS: INR 1.94 (0.5-1.4); PROTHROMBIN TIME (TEST) 19.6 SECONDS (9.5-11.5)
[2018-02-04 14:35] LABS: ALB/GLOB RATIO 0.7 (1.0-1.8); ANION GAP 21.1 (7.0-16.0); BILIRUBIN,TOTAL 1.5 mg/dL (0.3-1.0); CALCIUM SERUM 8.1 mg/dL (8.6-10.3); CARBON DIOXIDE 21.4 mEq/L (21.0-31.0); CREATININE - SERUM 3.9 mg/dL (0.6-1.2); GFR AFRICAN-AMERICAN 15.5 ml/min (>90); GFR NON AFRICAN-AMERICAN 12.8 ml/min; POTASSIUM SERUM 4.5 mEq/L (3.5-5.1); TOTAL PROTEIN,SERUM 4.7 gm/dL (6.0-8.3)
[2018-02-04] MEDS ORDERED: Phenylephrine HCl 50 MG in Sodium Chloride 0.9% 250 ML IV SCH (14:45)
[2018-02-04 14:52] LABS: pH 7.12 (7.35-7.45)
[2018-02-04 14:53] LABS: ALLEN TEST Positive
[2018-02-04] MEDS ORDERED: Pantoprazole 80 MG in Sodium Chloride 0.9% 100 ML IV SCH (16:30)
[2018-02-04 17:40] LABS: ALLEN TEST Y
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
--- NOTE | 2018-02-04 23:18 | General Progress Note ---
Subjective - Review of Systems Service Date: 02/04/18 Events since last encounter: ER CONSULTATION REASON FOR CONSULTATION : CODE BLUE THIS PATIENT WAS FIRST TREATED IN ROOM 109 AND MOVED TO ICU AT 1245/ 1325HRS SHE WAS TREATED MULTIPLE TIMES 1350, 1415,1445, 1630 WITH ACLS PROTOCOL, AT 1325 HRS SHE WAS INTUBATED WITH A 7.5 ET TUBE AND PLACED OF A VENT AT AN FIO OF 100%, RATE OF 12, TV OF 600 AND A PEEP OF 5. THE PATIENT WAS GIVEN MULTIPLE ROUNDS OF EPI AND TREATED FOR HER LOW BLOOD PRESSURES. A DOPPLER WAS USED TO CHECK FOR PEA MULTIPLE TIMES TO SEE SHE WAS CIRCULATING. THE PATIENT WAS ALSO SHOCKED MULTIPLE TIME WITHOUT A RESPONSE. THE PATIENT DID NOT RESPOND TO THE TREATMENT AND WAS PRONOUNCED AT 1724 HRS PLEASE SEE THE ATTACHED CODE FLOW SHEETS FOR DETAILS. Objective - Results Result Diagrams: 02/04/18 14:10 02/04/18 14:10 Recent Labs: Laboratory Last Values WBC 13.0 Th/cmm (4.8-10.8) H 02/04/18 14:10 RBC 3.12 Mil/cmm (3.80-5.10) L 02/04/18 14:10 Hgb 9.8 gm/dL (12-16) L 02/04/18 14:10 Hct 31.2 % (41.0-60) L 02/04/18 14:10 MCV 100.0 fl (81-100) 02/04/18 14:10 MCH 31.3 pg (27.0-31.0) H 02/04/18 14:10 MCHC Differential 31.3 pg (28.0-36.0) 02/04/18 14:10 RDW 18.8 % (11.5-20.0) 02/04/18 14:10 Plt Count 142 Th/cmm (150-400) L 02/04/18 14:10 MPV 8.1 fl 02/04/18 14:10 Add Manual Diff YES 02/03/18 04:20 Neutrophils % 51.3 % (40.0-80.0) 02/04/18 14:10 Band Neutrophils % 60 % (0-10) H 02/03/18 04:20 Lymphocytes % 44.7 % (20.0-50.0) 02/04/18 14:10 Monocytes % 2.8 % (2.0-10.0) 02/04/18 14:10 Eosinophils % 0.6 % (0.0-5.0) 02/04/18 14:10 Basophils % 0.6 % (0.0-2.0) 02/04/18 14:10 Neutrophils (Manual) 12 % (40-80) L 02/03/18 04:20 Lymphocytes 14 % (20-50) L 02/03/18 04:20 Monocytes 13 % (2-10) H 02/03/18 04:20 Basophils 1 % (0-3) 02/03/18 04:20 Platelet Estimate ADEQUATE (NORMAL) 02/03/18 04:20 PT 19.6 SECONDS (9.5-11.5) H 02/04/18 14:10 INR 1.94 (0.5-1.4) H 02/04/18 14:10 Specimen Source ARTERIAL 02/04/18 14:38 Sample Site Right Radial 02/04/18 14:38 pH 7.00 (7.35-7.45) L* 02/04/18 14:38 pCO2 61.0 mmHg (35.0-45.0) H* 02/04/18 14:38 pO2 72.0 mmHg (80.0-100.0) L 02/04/18 14:38 HCO3 13.0 mEq/L (20.0-26.0) L 02/04/18 14:38 Base Excess 14.0 mEq/L (-3.0-3.0) H 02/04/18 14:38 O2 Saturation 85.0 % (92.0-100.0) L 02/04/18 14:38 Melrin Test Y 02/04/18 14:38 Vent Rate 22 02/04/18 14:38 Inspired O2 100 02/04/18 14:38 Tidal Volume 600 02/04/18 14:38 PEEP 0 02/04/18 14:38 Pressure (ins/psv/peep) N/A 02/04/18 14:38 Critical Value O.MOORE 02/04/18 14:38 Sodium 138 mEq/L (136-145) 02/04/18 14:10 Potassium 4.5 mEq/L (3.5-5.1) 02/04/18 14:10 Chloride 100 mEq/L (98-107) 02/04/18 14:10 Carbon Dioxide 21.4 mEq/L (21.0-31.0) 02/04/18 14:10 Anion Gap 21.1 (7.0-16.0) H 02/04/18 14:10 BUN 41 mg/dL (7-25) H 02/04/18 14:10 Creatinine 3.9 mg/dL (0.6-1.2) H 02/04/18 14:10 Est GFR ( Amer) 15.5 ml/min (>90) 02/04/18 14:10 Est GFR (Non-Af Amer) 12.8 ml/min 02/04/18 14:10 BUN/Creatinine Ratio 10.5 02/04/18 14:10 Glucose 137 mg/dL (70-105) H 02/04/18 14:10 POC Glucose 137 MG/DL (70 - 105) H 02/04/18 11:36 Calcium 8.1 mg/dL (8.6-10.3) L 02/04/18 14:10 Total Bilirubin 1.5 mg/dL (0.3-1.0) H 02/04/18 14:10 AST 27 U/L (13-39) 02/04/18 14:10 ALT 11 U/L (7-52) 02/04/18 14:10 Alkaline Phosphatase 85 U/L (34-104) 02/04/18 14:10 Creatine Kinase 33 U/L (30-223) 01/31/18 14:10 Troponin I 0.05 ng/mL (0.01-0.05) 02/04/18 14:10 B-Natriuretic Peptide > 5000.0 pg/mL (5.0-100.0) H 01/31/18 14:10 Total Protein 4.7 gm/dL (6.0-8.3) L 02/04/18 14:10 Albumin 2.0 gm/dL (3.7-5.3) L 02/04/18 14:10 Globulin 2.7 gm/dL 02/04/18 14:10 Albumin/Globulin Ratio 0.7 (1.0-1.8) L 02/04/18 14:10 Triglycerides 75 mg/dL (<150) 01/31/18 14:10 Cholesterol 134 mg/dL (<200) 01/31/18 14:10 LDL Cholesterol Direct 94 mg/dL (75-193) 01/31/18 14:10 HDL Cholesterol 39 mg/dL (23-92) 01/31/18 14:10 Amylase 21 U/L (29-103) L 01/31/18 14:10 Lipase 13 U/L (11-82) 01/31/18 14:10 Serum , Qual NEGATIVE (NEGATIVE) 01/31/18 14:10 Urine Source CLEAN C 02/01/18 08:40 Urine Color YELLOW 02/01/18 08:40 Urine Clarity TURBID (CLEAR) H 02/01/18 08:40 Urine pH 7.0 (4.6 - 8.0) 02/01/18 08:40 Ur Specific [place] 1.020 (1.005-1.030) 02/01/18 08:40 Urine Protein >=300 mg/dL (NEGATIVE) 02/01/18 08:40 Urine Glucose (UA) NEGATIVE mg/dL (NEGATIVE) 02/01/18 08:40 Urine Ketones NEGATIVE mg/dL (NEGATIVE) 02/01/18 08:40 Urine Blood LARGE (NEGATIVE) H 02/01/18 08:40 Urine Nitrate NEGATIVE (NEGATIVE) 02/01/18 08:40 Urine Bilirubin SMALL (NEGATIVE) H 02/01/18 08:40 Urine Urobilinogen 0.2 E.U./dL (0.2 - 1.0) 02/01/18 08:40 Ur Leukocyte Esterase LARGE (NEGATIVE) H 02/01/18 08:40 Urine RBC 10-25 /hpf (0-5) H 02/01/18 08:40 Urine WBC >100 /hpf (0-5) H 02/01/18 08:40 Ur Epithelial Cells RARE /lpf (FEW) 02/01/18 08:40 Urine Bacteria MANY /hpf (NONE SEEN) H 02/01/18 08:40 Urine Test NEGATIVE 02/01/18 08:40 - Physical Exam Vitals and I&O: Vital Signs Temp 97.9 F 02/04/18 11:39 Pulse 40 02/04/18 18:00 Resp 18 02/04/18 11:41 BP 44/21 02/04/18 18:00 Pulse Ox 93 02/04/18 15:56 General: Severe distress HEENT: Atraumatic, Mucous membr. moist/pink Neck: Supple, +2 carotid pulse wo bruit Cardiovascular: Other (bradycardic) Lungs: Clear to auscultation Abdomen: Bowel sounds, Tender, Distended, Obese, Other (large ventral hernia apparent), no Hepatomegaly, no Splenomegaly Extremities: no Edema Neurological: Sensation intact Skin: no Rash Psych/Mental Status: Mental status NL - Procedures Procedures: Procedures Procedure Code Date PERFORMANCE OF URINARY FILTRATION, <6 HRS/DAY [id number] 08/24/17
--- NOTE | 2018-02-05 10:30 | Diagnostic Imaging Report ---
Exam: Chest x-ray HISTORY: Intubation. Findings: Portable exam of chest at 1356 hours reviewed, the study demonstrates endotracheal tube in the right mainstem bronchus should be pulled back 7-cm There is evidence of congestion, superimposed bilateral pneumonia and left pleural effusion. NG tube is passing into the stomach. Visualized bony thorax intact. IMPRESSION Endotracheal tube in the right mainstem bronchus should pulled back 7 cm Congestion, pneumonia, left pleural effusion.
--- NOTE | 2018-02-05 15:21 | Discharge Summary ---
DATE OF DISCHARGE: 02/04/2018 This is an expiration summary. FINAL DIAGNOSES: 1. Acute cardiopulmonary arrest. 2. Ventilator dependent respiratory failure, status post cardiopulmonary arrest. 3. Upper gastrointestinal bleeding, which probably caused aspiration. 4. Metabolic acidosis. 5. End-stage renal disease, on hemodialysis. 6. Diabetes. 7. History of chronic pain syndrome. HOSPITAL COURSE: The patient was a 52-year-old Japanese speaking female admitted due to nausea, vomiting, and abdominal pain. Consultation with Gastroenterology and Surgery was requested when the patient in the Emergency Room. On the CT scan, the patient had a large abdominal wall hernia that let her to the right rectus abdominis continued on both small and large bowel loops. There was also the possibility of bowel strangulation per GI and General surgeon. Surgery recommended transfer the patient to a tertiary care, which I requested to [facility] or other tertiary care. The paperwork was faxed to [facility] according to the nursing staff. Then, the patient developed upper gastrointestinal bleeding, which probably caused the aspiration and the patient's condition worsened rapidly. She was coded, so she was intubated and despite management in the intensive care unit. JOB# [id number]
== END 2018-02-04 17:24 | disposition expired | DRG 208 ==
LOC: ER 13:44 → TELE 16:50 → ICU 02-04 13:31
PROVIDERS: ADMIT Internal Medicine; ATTEND Internal Medicine
PROC: 5A1D70Z Performance of Urinary Filtration, Intermittent, Less than 6 Hours Per Day (ICD-10-PCS; 2018-02-03)
PROC: 5A12012 Performance of Cardiac Output, Single, Manual (ICD-10-PCS; principal; 2018-02-04)
PROC: 5A1935Z Respiratory Ventilation, Less than 24 Consecutive Hours (ICD-10-PCS; 2018-02-04)
PROC: 0BH17EZ Insertion of Endotracheal Airway into Trachea, Via Natural or Artificial Opening (ICD-10-PCS; 2018-02-04)
DX: J18.1 Lobar pneumonia, unspecified organism (principal); N18.6 End stage renal disease; J96.90 Respiratory failure, unspecified, unspecified whether with hypoxia or hypercapnia; K57.31 Diverticulosis of large intestine without perforation or abscess with bleeding; I13.2 Hypertensive heart and chronic kidney disease with heart failure and with stage 5 chronic kidney disease, or end stage renal disease; R18.8 Other ascites; J44.0 Chronic obstructive pulmonary disease with (acute) lower respiratory infection; E87.2 Acidosis; Z99.11 Dependence on respirator [ventilator] status; Z99.2 Dependence on renal dialysis; K46.9 Unspecified abdominal hernia without obstruction or gangrene; E78.5 Hyperlipidemia, unspecified; I50.9 Heart failure, unspecified; K21.9 Gastro-esophageal reflux disease without esophagitis; K80.80 Other cholelithiasis without obstruction; E11.22 Type 2 diabetes mellitus with diabetic chronic kidney disease; G89.4 Chronic pain syndrome; I25.10 Atherosclerotic heart disease of native coronary artery without angina pectoris; E66.01 Morbid (severe) obesity due to excess calories; B96.20 Unspecified Escherichia coli [E. coli] as the cause of diseases classified elsewhere; Z16.24 Resistance to multiple antibiotics; I46.9 Cardiac arrest, cause unspecified; Z83.3 Family history of diabetes mellitus; Z82.49 Family history of ischemic heart disease and other diseases of the circulatory system; Z99.3 Dependence on wheelchair; Z68.37 Body mass index [BMI] 37.0-37.9, adult; Z90.49 Acquired absence of other specified parts of digestive tract; Z90.710 Acquired absence of both cervix and uterus
CPT/HCPCS: 36415-UA; 36600-90; 71045-TC; 74000-TC; 76700-TC; 78226-TC; 80048-TC; 80053-TC; 80061-TC; 81001-TC; 81025-TC; 82150-TC; 82550-TC; 82803-TC; 82948-90; 83036-90; 83690-TC; 83880-TC; 84484-TC; 84703-TC; 85007-TC; 85025-TC; 85610-TC; 87086-90; 90799; 90937; 92950; 93005; 94002; 94640; 94760; 96374; 96375; A9537; C9113; J1815; J1885; J1956; J2270; J2370; J2405; J2543; J2765; J7030; J7070; J7613; X6452; Z7610